=== PATIENT | female | born 1960 | race Caucasian/White ===

== ENCOUNTER 2016-04-17 11:33 | Day surgery (SDC) | payer BC ==
[2016-04-02 08:42] VITALS: BMI 53.7
[~2016-04-17 11:33] MED LIST: LACTATED RINGERS 1,000 ML IV SCH
[2016-04-17 11:56] VITALS: RESP 16; TEMP 97.3
[2016-04-17] MEDS ORDERED: LIDOCAINE 1% 20 ML VIAL (10MG/ML) FOR IV START INTRADERMA ONE (11:57)
[2016-04-17] MEDS ORDERED: PROPOFOL 10 MG/ML 20 ML VIAL IV ONE (12:05)
--- NOTE | 2016-04-17 12:10 | P.GSHP ---
History of Present Illness H&P Date: 04/17/16 Chief Complaint: colon cancer screening Patient today for screening colonoscopy. No bowel related complaints other than hemorrhoids. Denies constipation or diarrhea. Past Medical History Past Medical History: Hyperlipidemia, Hypertension, Osteoarthritis (OA) Additional Past Medical History / Comment(s): NEUROPATHY , MORBID OBESITY, HEMORRHOID, History of Any Multi-Drug Resistant Organisms: None Reported Past Surgical History: Cholecystectomy, Hernia Repair, Hysterectomy, Orthopedic Surgery, Tonsillectomy Additional Past Surgical History / Comment(s): Left ankle tendon repair 1979. D& C 1988. Hyst 1995. LT SHOULDER SX, BILAT OVAIRIAN CYSTECTOMY, HERNIA X 2, CORTISONE SHOT 02/12/16 Past Anesthesia/Blood Transfusion Reactions: Previous Problems w/ Anesthesia, Postoperative Nausea & Vomiting (PONV) Additional Past Anesthesia/Blood Transfusion Reaction / Comment(s): Postoperative nausea and vomiting Past Psychological History: No Psychological Hx Reported Smoking Status: Former smoker Past Alcohol Use History: None Reported Additional Past Alcohol Use History / Comment(s): STARTED SMOKING AT AGE 15 QUIT MAR 2016 SMOKED 1 PACK PER WEEK Past Drug Use History: None Reported - Past Family History Mother Family Medical History: AFIB, Cancer, Deep Vein Thrombosis (DVT) Additional Family Medical History / Comment(s): States uterine cancer. Father History Unknown: Yes Medications and Allergies Home Medications Medication Instructions Recorded Confirmed Type Atorvastatin [Lipitor] 10 mg PO HS 04/02/16 04/17/16 History Lisinopril-Hctz 20-25 mg 1 each PO DAILY 04/02/16 04/17/16 History [Zestoretic 20-25] Stool Softener 1 each PO Q2D 04/02/16 04/17/16 History Ubidecarenone [Co Q-10] 200 mg PO HS 04/02/16 04/17/16 History traMADol HCL [Ultram] 50 mg PO Q6HR PRN 04/02/16 04/17/16 History Allergies Allergy/AdvReac Type Severity Reaction Status Date / Time No Known Allergies Allergy Verified 04/15/16 09:46 Surgical - Exam Vital Signs Temp Pulse Resp BP Pulse Ox 97.3 F L 91 16 133/70 95 04/17/16 11:55 04/17/16 11:55 04/17/16 11:55 04/17/16 11:55 04/17/16 11:55 Physical exam: General: Well-developed, well-nourished HEENT: Normocephalic, sclerae nonicteric Abdomen: Nontender, nondistended Extremities: No edema Neuro: Alert and oriented Assessment and Plan (1) Colon cancer screening Narrative/Plan: Proceed with colonoscopy Status: Acute
--- NOTE | 2016-04-17 12:33 | P.PCN ---
Date of Procedure: 04/17/16 Procedure(s) Performed: PREOPERATIVE DIAGNOSIS: Colon cancer screening POSTOPERATIVE DIAGNOSIS: Proximal transverse colon polyp 3, diverticulosis, hemorrhoids PROCEDURE: Colonoscopy with snare polypectomy ANESTHESIA: MAC SURGEON: Mason Christopher M.D. SPECIMENS: Polyps ENDOSCOPIC PROCEDURE: The patient was placed on the endoscopy table in the left decubitus position. The Olympus colonoscope was inserted into the anus and passed under direct visualization to the base of the cecum. The appendiceal orifice was visualized. From that point the scope was slowly withdrawn inspecting all surfaces carefully. There were no neoplastic inflammatory or polypoid lesions throughout the cecum and ascending colon. In the proximal transverse colon 3 polyps were identified and removed using the snare with cautery technique. The remainder of the transverse descending sigmoid and rectum appeared normal. There was mild diverticulosis seen scattered throughout the colon. Digital rectal examination revealed small hemorrhoids. The patient was taken to the recovery room in stable condition per anesthesia guidelines. RECOMMENDATIONS: Await biopsy results. Anticipate follow-up colonoscopy in 2-3 years.
[2016-04-17 13:19] VITALS: BP 126/82; PULSE 71
== END 2016-04-17 13:28 | disposition home or self-care (01) ==
LOC: ORWHC2ENDO 11:33
PROVIDERS: ATTEND Surgery
DX: Z12.11 Encounter for screening for malignant neoplasm of colon (principal); D12.3 Benign neoplasm of transverse colon; K57.30 Diverticulosis of large intestine without perforation or abscess without bleeding; K64.9 Unspecified hemorrhoids; E78.5 Hyperlipidemia, unspecified; I10 Essential (primary) hypertension; M19.90 Unspecified osteoarthritis, unspecified site; E66.01 Morbid (severe) obesity due to excess calories; Z87.891 Personal history of nicotine dependence; Z79.899 Other long term (current) drug therapy
CPT/HCPCS: 88305; 45385; J2704

== ENCOUNTER → 2017-04-27 | Outpatient (CLI) | payer BC ==
--- NOTE | 2017-04-28 10:01 | MM ---
Reason for exam: screening (asymptomatic). Last mammogram was performed 1 year and 4 months ago. History: Patient is postmenopausal. Took estrogen for 6 months. Physical Findings: A clinical breast exam by your physician is recommended on an annual basis and results should be correlated with mammographic findings. MG 3D Screening Mammo W/Cad Bilateral CC and MLO view(s) were taken. Prior study comparison: December 23, 2015, bilateral MG screening mammo w CAD. December 18, 2014, bilateral MG screening mammo w CAD. There are scattered fibroglandular densities. There is no discrete abnormality. ASSESSMENT: Negative, BI-RAD 1 RECOMMENDATION: Routine screening mammogram of both breasts in 1 year.
== END | disposition home or self-care (01) ==
LOC: RADMAMWWP 10:55
PROVIDERS: ATTEND Family Medicine
DX: Z12.31 Encounter for screening mammogram for malignant neoplasm of breast (principal)
CPT/HCPCS: 77063; 77067

== ENCOUNTER → 2018-07-11 | Outpatient (CLI) | payer BC ==
--- NOTE | 2018-07-12 14:33 | MM ---
Reason for exam: screening (asymptomatic). Last mammogram was performed 1 year and 2 months ago. History: Patient is postmenopausal. Family history of breast cancer in mother at age 85. Took estrogen for 6 months. Physical Findings: A clinical breast exam by your physician is recommended on an annual basis and results should be correlated with mammographic findings. MG 3D Screening Mammo W/Cad Bilateral CC and MLO view(s) were taken. Prior study comparison: April 27, 2017, bilateral MG 3d screening mammo w/cad. December 23, 2015, bilateral MG screening mammo w CAD. The breast tissue is almost entirely fat. No significant changes when compared with prior studies. ASSESSMENT: Negative, BI-RAD 1 RECOMMENDATION: Routine screening mammogram of both breasts in 1 year.
== END | disposition home or self-care (01) ==
LOC: RADMAMWWP 12:19
PROVIDERS: ATTEND Family Medicine
DX: Z12.31 Encounter for screening mammogram for malignant neoplasm of breast (principal)
CPT/HCPCS: 77063; 77067

== ENCOUNTER → 2018-09-21 | Outpatient (CLI) | payer BC ==
--- NOTE | 2018-09-21 13:35 | XR ---
EXAMINATION TYPE: XR hand complete RT DATE OF EXAM: 09/21/2018 COMPARISON: NONE HISTORY: Fifth finger pain. History of crush injury. TECHNIQUE: AP, oblique and lateral views of the right hand were obtained. FINDINGS: Moderate osteoarthritic changes are seen involving the carpometacarpal first joint. Moderat e osteoarthritic changes are also seen at the radial ulnar and radiocarpal joint. There is negative u lnar variance. No acute fracture or dislocation is identified. IMPRESSION: Moderate osteoarthritic changes of the wrist. If symptoms persist, consider MRI of the wrist to asses s for ligamentous pathology.
== END | disposition home or self-care (01) ==
LOC: RADXRMAIN 11:25
PROVIDERS: ATTEND Family Medicine
DX: M19.031 Primary osteoarthritis, right wrist (principal)

== ENCOUNTER → 2019-01-18 | Outpatient (CLI) | payer BC ==
--- NOTE | 2019-01-18 13:03 | XR ---
EXAMINATION TYPE: XR knee complete RT DATE OF EXAM: 01/18/2019 CLINICAL HISTORY: pain TECHNIQUE: Three views of the right knee are obtained. COMPARISON: 05/14/2014 FINDINGS: There is no acute fracture/dislocation. The tri-compartment joint spaces appear severely narrowed at the patellofemoral joint space and moderately narrowed at the medial tibiofemoral joint s pace. The overlying soft tissue appears unremarkable. IMPRESSION: There is no acute fracture or dislocation.ICD 10 NO FRACTURE, INITIAL EVALUATION
== END | disposition home or self-care (01) ==
LOC: RADXRMAIN 12:41
PROVIDERS: ATTEND Nurse Practitioner Women's Health
DX: M25.561 Pain in right knee (principal)

== ENCOUNTER → 2019-02-02 | Outpatient (CLI) | payer BC ==
--- NOTE | 2019-02-02 09:45 | US ---
EXAMINATION TYPE: US thyroid st tissue head/neck DATE OF EXAM: 02/02/2019 COMPARISON: NONE CLINICAL HISTORY: Thyroid mass R22.0. goiter GLAND SIZE: Right Lobe: 5.6 x 2.4 x 2.0 cm Overall Parenchyma: heterogenous Left Lobe: 5.6 x 2.3 x 2.3 cm Overall Parenchyma: heterogeneous Isthmus Thickness: .9 cm NODULES RIGHT: # of nodules measured on right: Sub centimeter superior pole. LEFT: # of nodules measured on left: 0 ISTHMUS: # of nodules measured in the isthmus: 0 Bilateral neck scanned, no evidence of lymphadenopathy. The gland is diffusely heterogeneous. IMPRESSION: Heterogeneous thyroid gland, subcentimeter thyroid nodule, correlate for thyroiditis
== END | disposition home or self-care (01) ==
LOC: RADUSWWP 09:05
PROVIDERS: ATTEND Nurse Practitioner Women's Health
DX: E07.89 Other specified disorders of thyroid (principal); Z88.8 Allergy status to other drugs, medicaments and biological substances
CPT/HCPCS: 76536

== ENCOUNTER → 2019-02-20 | Outpatient (CLI) | payer BC ==
[2019-02-21 00:56] LABS: C Reactive Protein 0.7 mg/dL (0.0-0.8); Uric Acid 5.1 mg/dL (2.9-7.7)
== END | disposition home or self-care (01) ==
LOC: LABWHC1 17:12
PROVIDERS: ATTEND Family Medicine
DX: M25.561 Pain in right knee (principal); M17.11 Unilateral primary osteoarthritis, right knee
CPT/HCPCS: 36415; 84550; 85652; 86140

== ENCOUNTER → 2019-07-21 | Outpatient (CLI) | payer BC ==
[2019-07-21 18:47] LABS: T4, Free (Free Thyroxine) 1.4 ng/dL (0.80-1.80)
== END | disposition home or self-care (01) ==
LOC: LABWHC1 11:43
PROVIDERS: ATTEND Family Medicine
DX: E07.89 Other specified disorders of thyroid (principal)
CPT/HCPCS: 36415; 83519; 84439; 84443; 84481; 86800

== ENCOUNTER 2020-07-25 13:33 | Emergency (ER) | payer BC ==
[2020-07-25 13:39] VITALS: RESP 18; TEMP 98.2
[2020-07-25] MEDS ORDERED: KETOROLAC 15 MG/ML 1 ML VIAL IM STA (15:17)
[2020-07-25] MEDS ORDERED: methylPREDNISolone SOD SUCCI 125 MG/2 ML VIAL IM STA (15:17)
--- NOTE | 2020-07-25 15:24 | ED ---
Back Pain HPI - General Chief Complaint: Back Pain/Injury Stated Complaint: Back pain Source: patient, family, RN notes reviewed Limitations: no limitations - History of Present Illness Initial Comments: 60-year-old obese white female, alert and oriented 4, presents to the emergency room with complaints of left anterior thigh pain that she woke up with this morning at 9 AM. Patient states that when she tried to get up and walk the pain shot from her thigh into her low back and difficulty walking. Patient denies any saddle anesthesia, denies any bowel or bladder incontinence. Patient states has never had a back injury, and is not a smoker. Patient states that she does state at work for 10 hours but does get up and move is not sedentary. Patient denies any back surgeries and no recent injections. Denies any fevers, nausea vomiting or diarrhea. Patient has a surgical history of cholecystectomy, appendectomy, hysterectomy, left knee surgery and left ankle surgery 1979, and hernia repair 2. Patient has a medical history of hypertension, osteoarthritis with neuropathy. Patient states she took 50 mg tramadol at 9:30 this morning with very minimal relief. MD Complaint: back pain -: hour(s) (6) Similar Symptoms Previously: No Place: home Radiation: left leg (Anterior thigh) Severity scale (1-10): 10 Quality: other (Cramping) Consistency: intermittent Improves With: immobilization, other Worsens With: movement, walking - Related Data Home Medications Medication Instructions Recorded Confirmed Atorvastatin [Lipitor] 10 mg PO HS 04/02/16 04/17/16 Lisinopril-Hctz 20-25 mg 1 each PO DAILY 04/02/16 04/17/16 [Zestoretic 20-25] Stool Softener 1 each PO Q2D 04/02/16 04/17/16 Ubidecarenone [Co Q-10] 200 mg PO HS 04/02/16 04/17/16 traMADol HCL [Ultram] 50 mg PO Q6HR PRN 04/02/16 04/17/16 Previous Rx's Medication Instructions Recorded Cyclobenzaprine [Flexeril] 5 mg PO HS PRN 3 Days #3 tab 07/25/20 methylPREDNISolone Dose Pack 4 mg PO DIRECTED #21 package 07/25/20 [Medrol Dose Pack] Allergies Allergy/AdvReac Type Severity Reaction Status Date / Time atorvastatin [From Lipitor] Allergy Unknown Verified 07/25/20 13:40 Review of Systems ROS Statement: Those systems with pertinent positive or pertinent negative responses have been documented in the HPI. ROS Other: All systems not noted in ROS Statement are negative. Past Medical History Past Medical History: Hyperlipidemia, Hypertension, Osteoarthritis (OA) Additional Past Medical History / Comment(s): NEUROPATHY , MORBID OBESITY, HEMORRHOID, History of Any Multi-Drug Resistant Organisms: None Reported Past Surgical History: Cholecystectomy, Hernia Repair, Hysterectomy, Orthopedic Surgery, Tonsillectomy Additional Past Surgical History / Comment(s): Left ankle tendon repair 1979. D&C 1988. Hyst 1995. LT SHOULDER SX, BILAT OVAIRIAN CYSTECTOMY, HERNIA X 2, CORTISONE SHOT 02/12/16 Past Anesthesia/Blood Transfusion Reactions: Previous Problems w/ Anesthesia, Postoperative Nausea & Vomiting (PONV) Additional Past Anesthesia/Blood Transfusion Reaction / Comment(s): Postoperative nausea and vomiting Past Psychological History: No Psychological Hx Reported Past Alcohol Use History: None Reported Past Drug Use History: None Reported - Past Family History Mother Family Medical History: AFIB, Cancer, Deep Vein Thrombosis (DVT) Additional Family Medical History / Comment(s): States uterine cancer. Father History Unknown: Yes General Exam Limitations: no limitations General appearance: alert, obese Head exam: Present: atraumatic, normocephalic, normal inspection Eye exam: Present: normal appearance, PERRL, EOMI. Absent: scleral icterus, conjunctival injection, periorbital swelling ENT exam: Present: normal exam, normal oropharynx, mucous membranes moist Neck exam: Present: normal inspection, full ROM. Absent: tenderness, meningismus, lymphadenopathy, thyromegaly Respiratory exam: Present: normal lung sounds bilaterally. Absent: respiratory distress, wheezes, rales, rhonchi, stridor, chest wall tenderness, accessory muscle use, decreased breath sounds Cardiovascular Exam: Present: regular rate, normal rhythm, normal heart sounds. Absent: systolic murmur, diastolic murmur, rubs, gallop, clicks GI/Abdominal exam: Present: soft, normal bowel sounds. Absent: distended, tenderness, guarding, rebound, rigid, mass, hernia Extremities exam: Present: normal inspection, full ROM, normal capillary refill. Absent: tenderness, pedal edema, joint swelling, calf tenderness Back exam: Present: normal inspection, tenderness, paraspinal tenderness. Absent: CVA tenderness (R), CVA tenderness (L), muscle spasm, vertebral tenderness, rash noted Expanded Back exam: Absent: saddle anesthesia Back exam: Sciatic Notch Tenderness: Left, Right, Positive Straight Leg Raise: Left Neurological exam: Present: alert, oriented X3, CN II-XII intact, other (Shuffling gait related to back pain) Expanded Neurological exam: Absent: inattentive, memory loss-remote event, memory loss- recent event, receptive aphasia, expressive aphasia, total aphasia, tremor Patient oriented to: Present: person, place, time Speech: Present: fluid speech Cranial nerves: EOM's Intact: Normal, Gag Reflex: Normal, Tongue Deviation: Normal, Facial Sensation: Normal, Facial Palsy with Forehead Movement: Normal, Facial Palsy without Forehead Movement: Normal Motor strength exam: RUE: 5, LUE: 5, RLE: 5, LLE: 5 Eye Response: (4) open spontaneously Motor Response: (6) obeys commands Verbal Response: (5) oriented Cassidy Total: 15 Psychiatric exam: Present: normal affect, normal mood Skin exam: Present: warm, dry, intact, normal color. Absent: rash Course Vital Signs 07/25/20 13:36 Temperature 98.2 F Pulse Rate 84 Respiratory 18 Rate Blood Pressure 135/82 O2 Sat by Pulse 98 Oximetry Medical Decision Making - Medical Decision Making Patient presents to the emergency room with complaints of low back pain since this morning. Patient does not have a history of cancer, smoking or recent surgeries. Patient denies any IV drug abuse. Patient does not have a fever in the emergency room. There is no saddle anesthesia. Patient denies abdominal pain, redness of breath, nausea vomiting diarrhea or dysuria. There are no focal motor deficits. Patient has bilateral equal pedal pulses. Patient does have low back pain with straight leg test on the left, and paraspinal lumbar back tenderness. Pain was relieved with Flexeril, Toradol, Solu-Medrol and morphine here in the emergency room. Patient is able to ambulate around in the room with minimal discomfort and will be discharged home with a Medrol Dosepak, directed to take Tylenol at home and follow up with her primary care doctor in 1 week. case discussed with Dr. Garcia. Disposition Clinical Impression: Lumbar radiculopathy, Lumbar back pain with radiculopathy affecting left lower extremity Disposition: HOME SELF-CARE Condition: Fair Instructions (If sedation given, give patient instructions): Acute Low Back Pain (ED), Lower Back Exercises (ED) Additional Instructions: Take the Medrol dose pack as prescribed, do not take Motrin or Aleve while taking the Medrol Dosepak. Take Tylenol as needed for additional pain relief. Follow-up with the primary care doctor in 1 week. Do not lift anything over 20 pounds. Once pain has resolved start low back exercises. Prescriptions: Cyclobenzaprine [Flexeril] 5 mg PO HS PRN 3 Days #3 tab PRN Reason: muscle spasms methylPREDNISolone Dose Pack [Medrol Dose Pack] 4 mg PO DIRECTED #21 package Is patient prescribed a controlled substance at d/c from ED?: No Referrals: Hakeem Wolfe MD [Primary Care Provider] - 1-2 days Time of Disposition: 18:14
[2020-07-25] MEDS ORDERED: CYCLOBENZAPRINE 10 MG TAB PO STA (16:38)
[2020-07-25] MEDS ORDERED: MORPHINE SULFATE 4 MG/ML SYRINGE IVP STA (16:39)
[2020-07-25] MEDS ORDERED: MORPHINE SULFATE 4 MG/ML SYRINGE IM STA (16:57)
[2020-07-25 18:42] VITALS: BP 126/72; PULSE 65
== END 2020-07-25 18:53 | disposition home or self-care (01) ==
LOC: EC 13:33
DX: M54.16 Radiculopathy, lumbar region (principal); M79.652 Pain in left thigh; I10 Essential (primary) hypertension; E78.5 Hyperlipidemia, unspecified; E66.01 Morbid (severe) obesity due to excess calories; M19.90 Unspecified osteoarthritis, unspecified site; G62.9 Polyneuropathy, unspecified; Z68.41 Body mass index [BMI] 40.0-44.9, adult
CPT/HCPCS: 99283; 96372 ×3; J2270; J2930; J1885

== ENCOUNTER 2020-11-21 16:44 | Emergency (ER) | payer BC ==
[2020-11-21] MEDS ORDERED: SODIUM CHLORIDE 0.9% 1,000 ML IV STA (20:37)
[2020-11-21] MEDS ORDERED: KETOROLAC 15 MG/ML 1 ML VIAL IVP STA (20:37)
[2020-11-21] MEDS ORDERED: ONDANSETRON 4 MG/2 ML VIAL IVP STA (20:37)
--- NOTE | 2020-11-21 20:42 | ED ---
Abdominal Pain HPI - General Chief Complaint: Abdominal Pain Stated Complaint: Rib Pain/JANETT Time Seen by Provider: 11/21/20 19:47 Source: patient, family (Sister), RN notes reviewed, old records reviewed Mode of arrival: ambulatory Limitations: no limitations - History of Present Illness Initial Comments: This is a well-appearing 60-year-old female that presents to the emergency room with epigastric abdominal pain since 3:30 this afternoon. Patient describes the pain as spasms where peaks and then starts to go back down she says it lasts about a minute or 2 and then resolves she states that it happens B 10 minutes. She denies any vomiting but does have nausea. She did have a normal bowel movement today. She denies any fevers or chest pain. Patient does have a history of hypertension, cholecystectomy and hysterectomy with 2 umbilical hernia repairs. MD Complaint: abdominal pain -: hour(s) (5) Location: epigastric Radiation: LUQ, RUQ Severity scale (1-10): 9 Quality: dull, other (spasm) Consistency: intermittent Improves With: nothing Worsens With: nothing Associated Symptoms: denies other symptoms - Related Data Home Medications Medication Instructions Recorded Confirmed Atorvastatin [Lipitor] 10 mg PO HS 04/02/16 04/17/16 Lisinopril-Hctz 20-25 mg 1 each PO DAILY 04/02/16 04/17/16 [Zestoretic 20-25] Stool Softener 1 each PO Q2D 04/02/16 04/17/16 Ubidecarenone [Co Q-10] 200 mg PO HS 04/02/16 04/17/16 traMADol HCL [Ultram] 50 mg PO Q6HR PRN 04/02/16 04/17/16 Previous Rx's Medication Instructions Recorded Cyclobenzaprine [Flexeril] 5 mg PO HS PRN 3 Days #3 tab 07/25/20 methylPREDNISolone Dose Pack 4 mg PO DIRECTED #21 package 07/25/20 [Medrol Dose Pack] Famotidine [Pepcid] 20 mg PO DAILY 28 Days #28 tablet 11/22/20 Allergies Allergy/AdvReac Type Severity Reaction Status Date / Time atorvastatin [From Lipitor] Allergy Unknown Verified 11/21/20 18:29 Review of Systems ROS Statement: Those systems with pertinent positive or pertinent negative responses have been documented in the HPI. ROS Other: All systems not noted in ROS Statement are negative. Past Medical History Past Medical History: Hyperlipidemia, Hypertension, Osteoarthritis (OA) Additional Past Medical History / Comment(s): NEUROPATHY , MORBID OBESITY, HEMORRHOID, History of Any Multi-Drug Resistant Organisms: None Reported Past Surgical History: Cholecystectomy, Hernia Repair, Hysterectomy, Orthopedic Surgery, Tonsillectomy Additional Past Surgical History / Comment(s): Left ankle tendon repair 1979. D&C 1988. Hyst 1995. LT SHOULDER SX, BILAT OVAIRIAN CYSTECTOMY, HERNIA X 2, CORTISONE SHOT 02/12/16 Past Anesthesia/Blood Transfusion Reactions: Previous Problems w/ Anesthesia, Postoperative Nausea & Vomiting (PONV) Additional Past Anesthesia/Blood Transfusion Reaction / Comment(s): Postoperative nausea and vomiting Past Psychological History: No Psychological Hx Reported Smoking Status: Former smoker Past Alcohol Use History: None Reported Past Drug Use History: None Reported - Past Family History Mother Family Medical History: AFIB, Cancer, Deep Vein Thrombosis (DVT) Additional Family Medical History / Comment(s): States uterine cancer. Father History Unknown: Yes General Exam Limitations: no limitations General appearance: alert, in no apparent distress Head exam: Present: atraumatic, normocephalic, normal inspection Eye exam: Present: normal appearance, PERRL, EOMI. Absent: scleral icterus, conjunctival injection, periorbital swelling ENT exam: Present: normal exam, normal oropharynx, mucous membranes moist Neck exam: Present: normal inspection, full ROM. Absent: tenderness, meningismus, lymphadenopathy Respiratory exam: Present: normal lung sounds bilaterally. Absent: respiratory distress, wheezes, rales, rhonchi, stridor Cardiovascular Exam: Present: regular rate, normal rhythm, normal heart sounds. Absent: systolic murmur, diastolic murmur, rubs, gallop, clicks GI/Abdominal exam: Present: soft, tenderness (Epigastric), normal bowel sounds. Absent: distended, guarding, rebound, rigid Extremities exam: Present: normal inspection, full ROM, normal capillary refill, pedal edema (Bilateral lower extremity chronic). Absent: tenderness, joint swelling, calf tenderness Back exam: Present: normal inspection, full ROM. Absent: tenderness Neurological exam: Present: alert, oriented X3 Psychiatric exam: Present: normal affect, normal mood Skin exam: Present: warm, dry, intact, normal color. Absent: rash Course Vital Signs 11/21/20 11/21/20 11/21/20 18:24 20:04 23:50 Temperature 98.0 F Pulse Rate 71 59 L 56 L Respiratory 19 20 20 Rate Blood Pressure 137/83 154/86 119/52 O2 Sat by Pulse 99 99 98 Oximetry Medical Decision Making - Medical Decision Making CBC and electrolytes are within normal limits. UA is negative for infection. CT of the abdomen shows post surgical changes. Pt's pain was relieved with reglan and IV fluids. Abdomen soft and nontender at discharge. Case was discussed with Dr Colin. Pt will be referred to f/u with her PCP and GI doctor. Pt states she has seen Dr Christopher and Dr Hummel in the past and will f/u this week. She is agreeable to this plan of care. Pt also prescribed pepcid daily. - Lab Data Result diagrams: 11/21/20 21:04 11/21/20 21:04 Lab Results 11/21/20 11/21/20 11/21/20 Range/Units 21:04 21:04 21:04 WBC 8.4 (3.8-10.6) k/uL RBC 4.91 (3.80-5.40) m/uL Hgb 14.6 (11.4-16.0) gm/dL Hct 44.5 (34.0-46.0) % MCV 90.8 (80.0-100.0) fL MCH 29.8 (25.0-35.0) pg MCHC 32.9 (31.0-37.0) g/dL RDW 13.1 (11.5-15.5) % Plt Count 206 (150-450) k/uL MPV 8.1 Neutrophils % 61 % Lymphocytes % 29 % Monocytes % 5 % Eosinophils % 2 % Basophils % 1 % Neutrophils # 5.1 (1.3-7.7) k/uL Lymphocytes # 2.4 (1.0-4.8) k/uL Monocytes # 0.4 (0-1.0) k/uL Eosinophils # 0.2 (0-0.7) k/uL Basophils # 0.1 (0-0.2) k/uL PT 10.6 (9.0-12.0) sec INR 1.0 (<1.2) APTT 26.2 (22.0-30.0) sec Sodium (137-145) mmol/L Potassium (3.5-5.1) mmol/L Chloride (98-107) mmol/L Carbon Dioxide (22-30) mmol/L Anion Gap mmol/L BUN (7-17) mg/dL Creatinine (0.52-1.04) mg/dL Est GFR (CKD-EPI)AfAm (>60 ml/min/1.73 sqM) Est GFR (CKD-EPI)NonAf (>60 ml/min/1.73 sqM) Glucose (74-99) mg/dL Plasma Lactic Acid [place] (0.7-2.0) mmol/L Calcium (8.4-10.2) mg/dL Total Bilirubin (0.2-1.3) mg/dL AST (14-36) U/L ALT (4-34) U/L Alkaline Phosphatase (38-126) U/L Troponin I (0.000-0.034) ng/mL Total Protein (6.3-8.2) g/dL Albumin (3.5-5.0) g/dL Amylase (30-110) U/L Lipase (23-300) U/L Urine Color Yellow Urine Appearance Clear (Clear) Urine pH 6.0 (5.0-8.0) Ur Specific [place] 1.028 (1.001-1.035) Urine Protein Trace H (Negative) Urine Glucose (UA) Negative (Negative) Urine Ketones Negative (Negative) Urine Blood Negative (Negative) Urine Nitrite Negative (Negative) Urine Bilirubin Negative (Negative) Urine Urobilinogen 2.0 (<2.0) mg/dL Ur Leukocyte Esterase Negative (Negative) 11/21/20 11/21/20 11/21/20 Range/Units 21:04 21:04 21:04 WBC (3.8-10.6) k/uL RBC (3.80-5.40) m/uL Hgb (11.4-16.0) gm/dL Hct (34.0-46.0) % MCV (80.0-100.0) fL MCH (25.0-35.0) pg MCHC (31.0-37.0) g/dL RDW (11.5-15.5) % Plt Count (150-450) k/uL MPV Neutrophils % % Lymphocytes % % Monocytes % % Eosinophils % % Basophils % % Neutrophils # (1.3-7.7) k/uL Lymphocytes # (1.0-4.8) k/uL Monocytes # (0-1.0) k/uL Eosinophils # (0-0.7) k/uL Basophils # (0-0.2) k/uL PT (9.0-12.0) sec INR (<1.2) APTT (22.0-30.0) sec Sodium 139 (137-145) mmol/L Potassium 3.7 (3.5-5.1) mmol/L Chloride 106 (98-107) mmol/L Carbon Dioxide 26 (22-30) mmol/L Anion Gap 7 mmol/L BUN 12 (7-17) mg/dL Creatinine 0.60 (0.52-1.04) mg/dL Est GFR (CKD-EPI)AfAm >90 (>60 ml/min/1.73 sqM) Est GFR (CKD-EPI)NonAf >90 (>60 ml/min/1.73 sqM) Glucose 93 (74-99) mg/dL Plasma Lactic Acid [place] 0.9 (0.7-2.0) mmol/L Calcium 9.5 (8.4-10.2) mg/dL Total Bilirubin 0.8 (0.2-1.3) mg/dL AST 33 (14-36) U/L ALT 18 (4-34) U/L Alkaline Phosphatase 58 (38-126) U/L Troponin I <0.012 (0.000-0.034) ng/mL Total Protein 6.9 (6.3-8.2) g/dL Albumin 3.8 (3.5-5.0) g/dL Amylase 48 (30-110) U/L Lipase 114 (23-300) U/L Urine Color Urine Appearance (Clear) Urine pH (5.0-8.0) Ur Specific [place] (1.001-1.035) Urine Protein (Negative) Urine Glucose (UA) (Negative) Urine Ketones (Negative) Urine Blood (Negative) Urine Nitrite (Negative) Urine Bilirubin (Negative) Urine Urobilinogen (<2.0) mg/dL Ur Leukocyte Esterase (Negative) - EKG Data EKG shows normal: sinus rhythm Rate: bradycardia (Ventricular rate 50, NV interval of 0.156, QRS 0.86, QTC 0.419) Disposition Clinical Impression: Abdominal pain Disposition: HOME SELF-CARE Condition: Good Instructions (If sedation given, give patient instructions): Abdominal Pain (ED) Additional Instructions: Take Pepcid once a day. Follow-up with the primary care doctor next week. Return to the emergency room with any new or worsening symptoms including increased pain. Prescriptions: Famotidine [Pepcid] 20 mg PO DAILY 28 Days #28 tablet Is patient prescribed a controlled substance at d/c from ED?: No Referrals: Hakeem Wolfe MD [Primary Care Provider] - 1-2 days Time of Disposition: 00:51
[2020-11-21 21:30] LABS: Basophils # (A) 0.1 k/uL (0-0.2); Basophils % (A) 1 %; Eosinophils # (A) 0.2 k/uL (0-0.7); Eosinophils % (A) 2 %; HCT 44.5 % (34.0-46.0); HGB 14.6 gm/dL (11.4-16.0); Lymphocytes # (A) 2.4 k/uL (1.0-4.8); Lymphocytes % (A) 29 %; MCH 29.8 pg (25.0-35.0); MCHC 32.9 g/dL (31.0-37.0); MCV 90.8 fL (80.0-100.0); Mean Platelet Volume 8.1; Monocytes # (A) 0.4 k/uL (0-1.0); Monocytes % (A) 5 %; Neutrophils # (A) 5.1 k/uL (1.3-7.7); Neutrophils % (A) 61 %; Platelet Count 206 k/uL (150-450); RBC 4.91 m/uL (3.80-5.40); RDW 13.1 % (11.5-15.5); WBC 8.4 k/uL (3.8-10.6)
[2020-11-21 21:36] LABS: Appearance,Urine Clear (Clear); Bilirubin,Urine Negative (Negative); Blood,Urine Negative (Negative); Color,Urine Yellow; Glucose,Urine (UA) Negative (Negative); Ketones,Urine Negative (Negative); Leukocyte Esterase,Urine Negative (Negative); Nitrite,Urine Negative (Negative); Protein,Urine Trace (Negative); Specific Gravity,Urine 1.028 (1.001-1.035)
[2020-11-21 21:40] LABS: Partial Thromboplastin Time 26.2 sec (22.0-30.0); Prothrombin Time 10.6 sec (9.0-12.0)
[2020-11-21 21:43] LABS: ALT 18 U/L (4-34); AST 33 U/L (14-36); African American GFR (CKD) >90 (>60 ml/min/1.73 sqM); Albumin 3.8 g/dL (3.5-5.0); Alkaline Phosphatase 58 U/L (38-126); Amylase 48 U/L (30-110); Anion Gap 7 mmol/L; Blood Urea Nitrogen 12 mg/dL (7-17); Calcium 9.5 mg/dL (8.4-10.2); Carbon Dioxide 26 mmol/L (22-30); Chloride 106 mmol/L (98-107); Glucose 93 mg/dL (74-99); Lipase 114 U/L (23-300); Non-African American GFR(CKD) >90 (>60 ml/min/1.73 sqM); Potassium 3.7 mmol/L (3.5-5.1); Sodium 139 mmol/L (137-145); Total Bilirubin 0.8 mg/dL (0.2-1.3); Total Protein 6.9 g/dL (6.3-8.2)
[2020-11-21] MEDS ORDERED: METOCLOPRAMIDE 5 MG/ML 2 ML VIAL IVP STA (23:04)
[2020-11-22 01:13] VITALS: BP 132/84; PULSE 54; RESP 18; TEMP 98.8
--- NOTE | 2020-11-22 09:42 | CT ---
EXAMINATION TYPE: CT abdomen pelvis wo con DATE OF EXAM: 11/21/2020 COMPARISON: 02/08/2015 INDICATION: lower rib pain/ epigastric pain DLP: 1696 mGycm, Automated exposure control for dose reduction was used. CONTRAST: 0 mL of Isovue 300. Study performed without Oral Contrast TECHNIQUE: Axial images were obtained from above the diaphragm to the pubic rami in the axial plane a t 5 mm thick sections. Reconstructed images are reviewed on the computer in the coronal plane. FINDINGS: Limited CT sections are obtained the lung bases. Mild streak opacity is at the left diaphragm near t he major fissure likely related to some streak atelectasis. CT ABDOMEN: In the retrocrural region there are some enlarged nodes. The largest measures 1.3 cm whic h is abnormal. Suspicious lymphadenopathy within the abdomen or pelvis is not identified. Liver: Normal Spleen: Normal Pancreas: Normal Adrenal glands: The adrenal glands are normal. Gallbladder: Surgically absent Kidneys: No masses are evident. No hydronephrosis is present. There is a 2.2 cm cyst measuring 9 Ho unsfield units. No renal stones are identified. Aorta: Vascular calcification is within the aorta. Inferior vena cava: Normal. CT PELVIS: There is increased density and thickening within the anterior abdominal wall. This may be a surgical incision site. This area measures approximately 6.7 x 3.1 cm. Intra-abdominal extension is not identified. There is some close approximation with loops of bowel nearby. There is a small amoun t extending into the subcutaneous tissue. Hemorrhage is favored within the differential. Postsurgical change may be present. Phlegmon and abscess formation are considered less likely. Correlate with the clinical symptoms. Loops of bowel within the abdomen and pelvis are normal. Diverticulosis is present. There is some sub tle inflammatory change adjacent to the distal descending colon. Very mild diverticulitis could be co nsidered. This study is without oral contrast limiting bowel evaluation. Appendix: Not identified. No dilated tubular structure or inflammatory changes are evident. Urinary bladder: Normal. Genitourinary structures: Uterus and ovaries are not identified. Osseous structures: No suspicious lytic or sclerotic lesions. Facet changes are present. Communication: Preliminary results were provided at the time of preliminary interpretation. Updated i mpressions were provided at the time of final interpretation. Initial dictation could not be recovere d and final dictation is provided at this time. IMPRESSIONS: 1. Enlarged retrocrural lymphadenopathy of uncertain etiology. Consider additional workup. 2. Diverticulosis. There may be some mild inflammatory change at the distal descending colon level an d mild diverticulitis should be considered. 3. Irregular hyperdensity within the anterior abdominal wall musculature with some mild extension int o the subcutaneous tissues. Correlate for hemorrhage. Postsurgical change could be considered. Phlegm on and abscess formation is felt to be less likely. 4. Mild streak atelectasis left lung base. 5. Right renal cyst
== END 2020-11-22 01:10 | disposition home or self-care (01) ==
LOC: EC 16:44
DX: R10.13 Epigastric pain (principal); I10 Essential (primary) hypertension; E78.5 Hyperlipidemia, unspecified; M19.90 Unspecified osteoarthritis, unspecified site; F17.200 Nicotine dependence, unspecified, uncomplicated; Z90.49 Acquired absence of other specified parts of digestive tract; Z90.710 Acquired absence of both cervix and uterus
CPT/HCPCS: 99284; 96374; 96375; 96361 ×2; 36415; 93005; 80053; 82150; 83605; 83690; 84484; 85025; 85610; 85730; 81003; 74176; J2405; J1885

== ENCOUNTER → 2021-03-21 | Outpatient (CLI) | payer BC ==
--- NOTE | 2021-03-23 10:04 | CT ---
EXAMINATION TYPE: CT abdomen pelvis wo con DATE OF EXAM: 03/21/2021 COMPARISON: 11/21/2020 INDICATION: left side flank pain DLP: 2199.3 mGycm, Automated exposure control for dose reduction was used. CONTRAST: 0 mL of Isovue 300. Study performed without Oral Contrast TECHNIQUE: Axial images were obtained from above the diaphragm to the pubic rami in the axial plane a t 5 mm thick sections. Reconstructed images are reviewed on the computer in the coronal plane. FINDINGS: Limited CT sections are obtained the lung bases. The lung bases are clear. CT ABDOMEN: There is some enlarged adenopathy within the retrocrural region measuring 1.0 cm. Scatter ed small periaortic lymphadenopathy is present. Liver: Normal Spleen: Normal Pancreas: Normal Adrenal glands: The adrenal glands are normal. Gallbladder: Surgically absent Kidneys: No masses are evident. No hydronephrosis is present. There is a 1.6 cm cyst in the posteri or right kidney measuring 4 Hounsfield units. No renal stones are evident. No hydroureter is evident . However there may be a 0.8 cm nonobstructing calcification in the distal left hemipelvis. This coul d be a phlebolith and was present previously. Aorta: Vascular calcification is within the aorta. Inferior vena cava: Normal. CT PELVIS: Scattered diverticuli are at the descending colon sigmoid colon junction. Mild inflammatory changes a djacent. Correlate for acute diverticulitis. No abscess formation or free air is identified. The stud y is without oral contrast limiting the evaluation. Appendix: Not visualized. No suspicious inflammatory changes are evident. Urinary bladder: Normal. Genitourinary structures: Uterus and ovaries not identified. Osseous structures: No suspicious lytic or sclerotic lesions. Degenerative disc changes are present L 5-S1. Some facet hypertrophy is in the lower lumbar spine. IMPRESSIONS: 1. Findings suggestive for mild acute diverticulitis proximal sigmoid colon left hemipelvis. 2. No suspicious renal or ureteral stones. A [place] level critical message alert has been initiated for Hakeem Wolfe MD via the [email or web address] Critical Results System on 03/23/2021 10:02 AM. This message alert has been sent to Hakeem chambers MD via the preferences provided by the clinician for the receipt of Radiology Critical Findings. Message ID [id number].
== END | disposition home or self-care (01) ==
LOC: RADCTMAIN 18:23
PROVIDERS: ATTEND Family Medicine
DX: K57.30 Diverticulosis of large intestine without perforation or abscess without bleeding (principal)
CPT/HCPCS: 74176

== ENCOUNTER → 2021-05-23 | Outpatient (CLI) | payer BC ==
--- NOTE | 2021-05-26 10:09 | MM ---
Reason for exam: screening (asymptomatic). Last mammogram was performed 2 years and 10 months ago. History: Patient is postmenopausal. Family history of breast cancer in mother at age 85. Took estrogen for 6 months. Physical Findings: A clinical breast exam by your physician is recommended on an annual basis and results should be correlated with mammographic findings. MG 3D Screening Mammo W/Cad Bilateral CC and MLO view(s) were taken. Prior study comparison: July 11, 2018, bilateral MG 3d screening mammo w/cad. April 27, 2017, bilateral MG 3d screening mammo w/cad. There are scattered fibroglandular densities. There is no discrete abnormality. No significant changes when compared with prior studies. ASSESSMENT: Negative, BI-RAD 1 RECOMMENDATION: Routine screening mammogram of both breasts in 1 year.
== END | disposition home or self-care (01) ==
LOC: RADMAMWWP 08:20
PROVIDERS: ATTEND Family Medicine
DX: Z12.31 Encounter for screening mammogram for malignant neoplasm of breast (principal); Z78.0 Asymptomatic menopausal state; Z80.3 Family history of malignant neoplasm of breast
CPT/HCPCS: 77063; 77067

== ENCOUNTER 2021-05-26 12:31 | Day surgery (SDC) | payer BC ==
[2021-05-22 13:47] VITALS: BMI 44.1
[2021-05-26 12:56] VITALS: TEMP 97.8
[2021-05-26] MEDS ORDERED: ONDANSETRON 4 MG/2 ML VIAL ONE (12:56)
--- NOTE | 2021-05-26 13:04 | P.GSHP ---
History of Present Illness H&P Date: 05/26/21 Chief Complaint: diverticulitis this a 61-year-old female who is appears history of diverticulitis. Patient is today for colonoscopy. Past Medical History Past Medical History: Hyperlipidemia, Hypertension, Osteoarthritis (OA) Additional Past Medical History / Comment(s): NEUROPATHY , HEMORRHOID, History of Any Multi-Drug Resistant Organisms: None Reported Past Surgical History: Cholecystectomy, Hernia Repair, Hysterectomy, Orthopedic Surgery, Tonsillectomy Additional Past Surgical History / Comment(s): Left ankle tendon repair 1979. D&C 1988. Hyst 199, BILAT OVAIRIAN CYSTECTOMY, HERNIA X 2, Past Anesthesia/Blood Transfusion Reactions: Previous Problems w/ Anesthesia, Postoperative Nausea & Vomiting (PONV) Additional Past Anesthesia/Blood Transfusion Reaction / Comment(s): Postoperative nausea and vomiting, Smoking Status: Former smoker - Past Family History Mother Family Medical History: AFIB, Cancer, Deep Vein Thrombosis (DVT) Additional Family Medical History / Comment(s): States uterine cancer.BREAT CANCER, GROIN CANCER " Father History Unknown: Yes Medications and Allergies Home Medications Medication Instructions Recorded Confirmed Type Ubidecarenone [Co Q-10] 200 mg PO DAILY 04/02/16 05/26/21 History traMADol HCL [Ultram] 100 mg PO BID 04/02/16 05/26/21 History Acetaminophen Tab [Tylenol] 650 mg PO DAILY 05/22/21 05/26/21 History Ascorbic Acid [Vitamin C] 500 mg PO DAILY 05/22/21 05/26/21 History Cholecalciferol [Vitamin D3 (25 25 mcg PO DAILY 05/22/21 05/26/21 History Mcg = 1000 Iu)] Hydrochlorothiazide 12.5 mg PO Q48H 05/22/21 05/26/21 History [hydroCHLOROthiazide] Phentermine HCl [Adipex-P] 37.5 mg PO DAILY 05/22/21 05/26/21 History Simvastatin [Zocor] 20 mg PO HS 05/22/21 05/26/21 History Zinc 50 mg PO DAILY 05/22/21 05/26/21 History Allergies Allergy/AdvReac Type Severity Reaction Status Date / Time atorvastatin [From Lipitor] Allergy JOINT PAIN Verified 05/26/21 12:48 Surgical - Exam Vital Signs Temp Pulse Resp BP Pulse Ox 97.8 F 77 18 131/64 95 04/18/22 12:55 05/26/21 12:55 05/26/21 12:55 05/26/21 12:55 05/26/21 12:55 - General well developed, well nourished, no distress - Eyes PERRL - ENT normal pinna - Neck no masses - Respiratory normal expansion - Cardiovascular Rhythm: regular - Abdomen Abdomen: soft, non tender Assessment and Plan Assessment: diverticulitis. We'll perform colonoscopy.
[2021-05-26] MEDS ORDERED: ONDANSETRON 4 MG/2 ML VIAL IVP ONE (13:05)
[2021-05-26] MEDS ORDERED: LIDOCAINE 1% INJ 10MG/ML (20 ML MDV) ONE (13:07)
[2021-05-26] MEDS ORDERED: PROPOFOL 10 MG/ML 20 ML VIAL IV ONE (13:07)
--- NOTE | 2021-05-26 13:26 | P.OP ---
Date of Procedure: 05/26/21 Preoperative Diagnosis: diverticulitis Postoperative Diagnosis: diverticulosis Rectal polyp Procedure(s) Performed: colonoscopy Anesthesia: MAC Surgeon: Jamar Bustillo Pathology: other (rectal polyp) Condition: stable Disposition: PACU Description of Procedure: the patient's placed on the endoscopy table in the lateral position. She received IV sedation. Digital rectal exam performed. This revealed no abnormalities. The flexible colonoscope was then placed patient anus and passed through the colon. Patient's severe diverticulosis of the sigmoid colon. The scope was placed into the level of the proximal transverse colon. Due to the significant diverticular changes. The site not to push the scope further due to concern may be injury to the colon in the sigmoid colon from diverticulosis. Scope withdrawn. The descending colon appeared normal. In the; and area was biopsied with inflamed. Scope brought back the rectum and a small polyp was seen. This removed with a cold forcep. Scope was withdrawn for patient.
[2021-05-26 13:50] VITALS: BP 125/78; PULSE 59; RESP 17
== END 2021-05-26 14:24 | disposition home or self-care (01) ==
LOC: ORWHC2ENDO 12:31
PROVIDERS: ATTEND Surgery
DX: K57.90 Diverticulosis of intestine, part unspecified, without perforation or abscess without bleeding (principal); E78.5 Hyperlipidemia, unspecified; I10 Essential (primary) hypertension; Z87.891 Personal history of nicotine dependence; Z90.49 Acquired absence of other specified parts of digestive tract; E66.9 Obesity, unspecified; Z79.899 Other long term (current) drug therapy; Z82.49 Family history of ischemic heart disease and other diseases of the circulatory system; Z80.8 Family history of malignant neoplasm of other organs or systems; Z80.59 Family history of malignant neoplasm of other urinary tract organ
CPT/HCPCS: 45380; 88305; J2405; J2001; J2704

== ENCOUNTER → 2021-08-20 | Outpatient (CLI) | payer BC ==
[2021-08-20 18:27] LABS: Basophils # (A) 0.05 X 10*3/uL (0.00-0.10); Basophils % (A) 0.6 %; Eosinophils # (A) 0.12 X 10*3/uL (0.04-0.35); Eosinophils % (A) 1.4 %; HCT 43.2 % (37.2-46.3); HGB 13.8 g/dL (12.0-15.0); Immature Grans, Automated 0.8 %; Lymphocytes # (A) 2.31 X 10*3/uL (0.90-5.00); Lymphocytes % (A) 27.7 %; MCH 28.9 pg (27.0-32.0); MCHC 31.9 g/dL (32.0-37.0); MCV 90.6 fL (80.0-97.0); Mean Platelet Volume 11.2 fL (9.5-12.2); Monocytes # (A) 0.57 X 10*3/uL (0.20-1.00); Monocytes % (A) 6.8 %; NRBC Per 100 WBC 0 /100 WBCS (0.0-0.0); Neutrophils # (A) 5.23 X 10*3/uL (1.80-7.70); Neutrophils % (A) 62.7 %; Platelet Count 230 X 10*3/uL (140-440); RBC 4.77 X 10*6/uL (4.10-5.20); WBC 8.35 X 10*3/uL (4.50-10.00)
[2021-08-20 18:34] LABS: Anion Gap 9.3 mmol/L (10.00-18.00); Carbon Dioxide 24.7 mmol/L (20.0-27.5); Potassium 4.2 mmol/L (3.5-5.5)
== END | disposition home or self-care (01) ==
LOC: LABPAT 11:24
PROVIDERS: ATTEND Surgery
DX: Z01.818 Encounter for other preprocedural examination (principal); K57.33 Diverticulitis of large intestine without perforation or abscess with bleeding
CPT/HCPCS: 80051; 85025; 93005

== ENCOUNTER 2021-08-27 08:57 | Inpatient (IN) | payer BC ==
[~2021-08-27 08:57] MED LIST changes: +ACETAMINOPHEN TAB 500 MG TAB PO PRN; +HEPARIN SODIUM,PORCINE/PF 5,000 UNIT/0.5 ML SYRINGE SQ PRN; -LACTATED RINGERS 1,000 ML IV SCH; +ceFAZolin 3 GM in SODIUM CHLORIDE 0.9% 100 ML IVPB PRN; +metroNIDAZOLE-NS PMX 500 MG in SALINE 1 100ML.BAG IVPB PRN
[2021-08-27] MEDS ORDERED: LACTATED RINGERS 1,000 ML IV ONE ×3 (09:20→13:58)
[2021-08-27] MEDS ORDERED: ONDANSETRON 4 MG/2 ML VIAL ONE (09:26)
[2021-08-27 10:01] LABS: Glucose,Whole Blood 92 mg/dL (70-110)
[2021-08-27] MEDS ORDERED: MIDAZOLAM 2 MG/2 ML VIAL IVP ONE (10:18)
[2021-08-27] MEDS ORDERED: fentaNYL (PF) 50 MCG/ML 2 ML AMP IVP ONE (10:18)
[2021-08-27] MEDS ORDERED: ONDANSETRON 4 MG/2 ML VIAL IVP ONE (10:35)
[2021-08-27] MEDS ORDERED: DEXAMETHASONE SOD PHOSPHATE 4 MG/ML 1 ML VIAL IVP ONE (10:35)
[2021-08-27] MEDS ORDERED: NALOXONE 0.4 MG/ML 1 ML VIAL IV PRN (10:42)
[2021-08-27] MEDS ORDERED: ONDANSETRON 4 MG/2 ML VIAL IVP PRN (10:42)
--- NOTE | 2021-08-27 10:45 | P.ANPRN ---
Procedure Note - Anesthesia - Epidural/Spinal Epidural Continuous Time Out Performed: Yes Date of Procedure: 08/27/21 Procedure Start Time: 10:17 Procedure Stop Time: 10:25 Location of Patient: PreOp Indication: Requested by Surgeon Sedation Type: Sedate with meaningful contact maintained Preparation: Sterile Dressing Position: Sitting Catheter: Indwelling Needle Guage: 18 Injectate: Test Dose Lidocaine1.5% w/1:200,000 epi Blood Aspirated: No Pain Paresthesia on Injection Noted: No Events: Uneventful and Well Tolerated
--- NOTE | 2021-08-27 11:08 | P.GSHP ---
History of Present Illness H&P Date: 08/27/21 Chief Complaint: Diverticulitis This a 59-year-old female who presents today for low anterior resection. Patient has issues with chronic diverticulitis. Patient with risks of surgery including bleeding, wound infection and possible colostomy. Past Medical History Past Medical History: Hyperlipidemia, Hypertension, Osteoarthritis (OA) Additional Past Medical History / Comment(s): NEUROPATHY LEFT AR, HEMORR HOID,DIVERTICULITIS,COVID INFECT 2020 History of Any Multi-Drug Resistant Organisms: None Reported Past Surgical History: Cholecystectomy, Hernia Repair, Hysterectomy, Orthopedic Surgery, Tonsillectomy Additional Past Surgical History / Comment(s): Left ankle tendon repair 1979. D&C 1988. Hyst 1995. LT SHOULDER SX, BILAT OVAIRIAN CYSTECTOMY, HERNIA X 2 Past Anesthesia/Blood Transfusion Reactions: Previous Problems w/ Anesthesia, Postoperative Nausea & Vomiting (PONV) Additional Past Anesthesia/Blood Transfusion Reaction / Comment(s): Postoperative nausea and vomiting Smoking Status: Former smoker - Past Family History Mother Family Medical History: AFIB, Cancer, Deep Vein Thrombosis (DVT) Additional Family Medical History / Comment(s): States uterine cancer.BREAT CANCER, GROIN CANCER " Father History Unknown: Yes Medications and Allergies Home Medications Medication Instructions Recorded Confirmed Type Ubidecarenone [Co Q-10] 200 mg PO DAILY 04/02/16 08/26/21 History traMADol HCL [Ultram] 100 mg PO BID PRN 04/02/16 08/26/21 History Acetaminophen Tab [Tylenol] 650 mg PO DAILY PRN 05/22/21 08/26/21 History Ascorbic Acid [Vitamin C] 500 mg PO DAILY 05/22/21 08/26/21 History Cholecalciferol [Vitamin D3 (25 25 mcg PO DAILY 05/22/21 08/26/21 History Mcg = 1000 Iu)] Phentermine HCl [Adipex-P] 37.5 mg PO DAILY 05/22/21 08/26/21 History Simvastatin [Zocor] 20 mg PO HS 05/22/21 08/26/21 History Zinc 50 mg PO DAILY 05/22/21 08/26/21 History hydroCHLOROthiazide 12.5 mg PO Q48H 05/22/21 08/26/21 History Allergies Allergy/AdvReac Type Severity Reaction Status Date / Time atorvastatin [From Lipitor] Allergy JOINT PAIN Verified 08/27/21 09:27 Surgical - Exam Vital Signs Temp Pulse Resp BP Pulse Ox 98.7 F 96 20 133/86 98 08/27/21 09:30 08/27/21 09:30 08/27/21 09:30 08/27/21 09:30 08/27/21 09:30 - General well developed, well nourished, no distress - Eyes PERRL - ENT normal pinna - Neck no masses - Respiratory normal expansion - Cardiovascular Rhythm: regular - Abdomen Abdomen: soft, non tender Assessment and Plan Assessment: History of chronic diverticulitis. We'll perform a low anterior resection.
[2021-08-27] MEDS ORDERED: ROCURONIUM 10 MG/ML (5 ML VIAL) IV ONE (11:26)
[2021-08-27] MEDS ORDERED: LIDOCAINE 2% INJ 20 MG/ML (2 ML VIAL) ONE (11:26)
[2021-08-27] MEDS ORDERED: LIDOCAINE 4% LTA KIT (4 ML) TOPICAL ONE (11:26)
[2021-08-27] MEDS ORDERED: MIDAZOLAM 2 MG/2 ML VIAL ONE (11:26)
[2021-08-27] MEDS ORDERED: fentaNYL (PF) 50 MCG/ML 2 ML AMP ONE (11:26)
[2021-08-27] MEDS ORDERED: NEOSTIGMINE 1 MG/ML 10 ML VIAL ONE (11:26)
[2021-08-27] MEDS ORDERED: PHENYLEPHRINE-0.9% NACL SYG 1,000 MCG/10 ML SYRINGE ONE (11:26)
[2021-08-27] MEDS ORDERED: SUCCINYLCHOLINE CHLORIDE 200 MG/10 ML VIAL IV ONE (11:26)
[2021-08-27] MEDS ORDERED: GLYCOPYRROLATE 0.2 MG/ML 2 ML VIAL ONE (11:26)
[2021-08-27] MEDS ORDERED: PROPOFOL 10 MG/ML 20 ML VIAL IV ONE (11:26)
--- NOTE | 2021-08-27 14:09 | P.OP ---
Date of Procedure: 08/27/21 Preoperative Diagnosis: Diverticulitis Postoperative Diagnosis: Diverticulitis Procedure(s) Performed: Exploratory laparotomy Lysis of extensive adhesion Low anterior resection Anesthesia: FILIPPO Surgeon: Jamar Bustillo Estimated Blood Loss (ml): 50 Pathology: other (colon) Condition: stable Disposition: PACU Description of Procedure: The patient's placed on the operative table in the supine position. She received general endotracheal tube anesthesia. Her abdomen was prepped and draped in sterile fashion. She is placed in dorsal 5. Her abdomen was entered through a low midline scar. The skin was incised and using left cautery the subcutaneous tissue divided. The fascia was then opened midline. Patient had a previous mesh. The mesh was divided in the midline. The perineal cavity was then opened and the adhesions were lysed with sharp dissection. Approximately 20 minutes operative time used to lyse adhesions. The sigmoid colon appeared to be quite inflamed. There is evidence of chronic scarring and thickening of the colon. An enterotomy is made in the proximal sigmoid colon and then the anvil for the 25 mm EEA stapler was placed into the colon. The colon was then transected with a GI stapler. And then the anvil was driven through the staple line. Next using the Enseal device the mesentery the bowel was divided. The rectum was then transected with the contour stapler. There was significant adhesions along the rectum from the patient's previous hysterectomy. The specimen was sent to pathology. There is no bleeding seen. This point the casting assistant placed the EEA stapler patient's anus. The spike the stapler was driven through the rectal staple line. And then the anvil was connected stapler. The stapler is then closed and fired. The stapler was then removed. The tissue rings were examined. There appeared to be a partial tissue rings on the proximal colon. A hydroureter placed across the proximal colon and then the rectum was insufflated with air. There was an obvious air leak at the staple line. Several times made to secure the air leak was sutures however this was unable be performed. This point decided to take down the anastomosis. Using the contour stapler the rectum was transected just distal to the anastomosis. And then the proximal colon was opened with sharp dissection. The anvil for a 25 mm EEA stapler placed into the colon. A pursestring was performed using 2-0 Vicryl suture. The pursestring was secured. The new EEA staplers placed patient's anus and passed up to the rectal stump. The staple spike was driven through the staple line. The anvil fit the stable. The stapler is then closed and fired. The sigmoid withdrawn. 2 intact tissue rings were withdrawn. A air instillation test was then performed on the anastomosis. There is no evidence of any leak. The abdomen was then irrigated. No bleeding was seen. The fascia was then closed in looped #1 PDS suture. Skin was closed jordy. Patient top she will was sent to recovery room in stable condition.
[2021-08-27] MEDS ORDERED: METOCLOPRAMIDE 5 MG/ML 2 ML VIAL IVP PRN (14:10)
[2021-08-27] MEDS: ROPIVACAINE 250 MG, HYDROMORPHONE (PF) 5 MG in SODIUM CHLORIDE 0.9% 200 ML EPIDURAL PRN (14:13)
[2021-08-27] MEDS: D5-0.45% NACL WITH KCL 20MEQ/L 1,000 ML IV SCH (16:37)
[2021-08-27] MEDS: HEPARIN SODIUM,PORCINE/PF 5,000 UNIT/0.5 ML SYRINGE SQ SCH (16:38)
[2021-08-27 18:28] LABS: Basophils % (A) 0 %; Eosinophils % (A) 0 %; HCT 42.9 % (34.0-46.0); HGB 13.4 gm/dL (11.4-16.0); Lymphocytes # (A) 0.6 k/uL (1.0-4.8); Lymphocytes % (A) 4 %; MCH 29.4 pg (25.0-35.0); MCHC 31.3 g/dL (31.0-37.0); Mean Platelet Volume 8.2; Monocytes # (A) 0.9 k/uL (0-1.0); Monocytes % (A) 5 %; Neutrophils % (A) 90 %; Platelet Count 192 k/uL (150-450); RBC 4.56 m/uL (3.80-5.40); RDW 13.3 % (11.5-15.5); WBC 16.7 k/uL (3.8-10.6)
[2021-08-27 18:36] LABS: African American GFR (CKD) >90 (>60 ml/min/1.73 sqM); Anion Gap 4 mmol/L; Blood Urea Nitrogen 7 mg/dL (7-17); Calcium 8.6 mg/dL (8.4-10.2); Carbon Dioxide 27 mmol/L (22-30); Chloride 108 mmol/L (98-107); Glucose 140 mg/dL (74-99); Non-African American GFR(CKD) >90 (>60 ml/min/1.73 sqM); Potassium 4.1 mmol/L (3.5-5.1); Sodium 139 mmol/L (137-145)
--- NOTE | 2021-08-27 18:54 | P.CONS ---
History of Present Illness - Reason for Consult Consult date: 08/27/21 Medical management Requesting physician: Jamar Bustillo - Chief Complaint Diverticulitis - History of Present Illness 59 year-old female patient with noted chronic diverticulitis presented for low anterior resection in which she is day of surgery. Patient has past medical history of hyperlipidemia, hypertension, osteoarthritis, hemorrhoids, diverticulitis, Covid in 2019, cholecystectomy, hernia repair, hysterectomy, tonsillectomy, orthopedic surgery for a left ankle tendon repair in 1979. Review of Systems Constitutional: Reports as per HPI, Denies anorexia, Denies chills, Denies chronic headaches, Denies chronic pain, Denies daytime sleepiness, Denies fatigue, Denies fever, Denies lethargy, Denies malaise, Denies night sweats, Denies poor appetite, Denies sweats, Denies weakness, Denies weight gain, Denies weight loss Ears, nose, mouth and throat: Reports as per HPI, Denies ant. neck pain, Denies bleeding gums, Denies dental pain, Denies dysphagia, Denies epistaxis, Denies headache, Denies hoarseness, Denies mouth pain, Denies nasal congestion, Denies nasal discharge, Denies neck fullness/pressure, Denies neck lump, Denies nose pain, Denies odynophagia, Denies post-nasal drip, Denies sinus pain, Denies sinus pressure, Denies swelling in mouth, Denies swelling in throat, Denies sore throat, Denies vertigo, Denies voice changes Cardiovascular: Reports as per HPI, Denies chest pain, Denies claudication, Denies decreased exercise tolerance, Denies dyspnea on exertion, Denies edema, Denies high blood pressure, Denies irregular heart beat, Denies leg edema, De nies lightheadedness, Denies orthopnea, Denies palpitations, Denies paroxysmal nocturnal dyspnea, Denies phlebitis, Denies rapid heart beat, Denies shortness of breath, Denies syncope Respiratory: Reports as per HPI, Denies congestion, Denies cough, Denies cough with sputum, Denies dyspnea, Denies excessive sputum, Denies hemoptysis, Denies home oxygen, Denies pain, Denies pain on inspiration, Denies pleurisy, Denies respiratory infections, Denies sleep apnea, Denies snoring, Denies wheezing Gastrointestinal: Reports abdominal pain, Reports belching, Reports nausea Genitourinary: Reports as per HPI, Denies abnormal vaginal bleeding, Denies decreased libido, Denies difficulty conceiving, Denies difficulty voiding, De nies dysmenorrhea, Denies dyspareunia, Denies dysuria, Denies flank pain, Denies genital sores, Denies hematuria, Denies hot flashes, Denies incomplete emptying, Denies kidney stones, Denies menorrhagia, Denies mixed incontinence, Denies nocturia, Denies pelvic pain, Denies post void dribbling, Denies , Denies prolapse symptoms, Denies stress incontinence, Denies urge incontinence, Denies urgency, Denies urinary frequency, Denies vaginal discharge, Denies vaginal dryness, Denies vaginal itching, Denies vaginal odor Menstruation: Reports as per HPI Musculoskeletal: Reports as per HPI, Denies arm numbness/tingling, Denies atrophy, Denies fractures, Denies frequent falls, Denies gait dysfunction, Denies hot joints, Denies leg numbness/tingling, Denies limitation of motion, Denies loss of height, Denies low back pain, Denies morning stiffness, Denies muscle cramps, Denies muscle weakness, Denies myalgias, Denies neck pain, Denies neck stiffness, Denies prior amputations, Denies redness of joints, Denies shooting arm pain, Denies shooting leg pain Integumentary: Reports as per HPI, Reports wounds (Lower abdominal surgical incision) Neurological: Reports as per HPI, Denies aphasia, Denies ataxia, Denies balance difficulties, Denies burning pain, Denies change in mentation, Denies change in smell/taste, Denies change in speech, Denies confusion, Denies convulsions, Denies double vision, Denies gait dysfunction, Denies head injury, Denies headaches, Denies hearing difficulties, Denies lack of coordination, Denies loss of vision, Denies memory loss, Denies migraines, Denies motor disturbance, Denies numbness, Denies paralysis, Denies paresthesias, Denies seizures, Denies sensory deficit, Denies spasticity, Denies syncope, Denies tic, Denies tingling, Denies transient paralysis, Denies tremors, Denies vertigo, Denies weakness, Denies visual changes Psychiatric: Reports as per HPI, Denies anhedonia, Denies anxiety, Denies anxiety attacks, Denies change in appetite, Denies change in libido, Denies change in sleep habits, Denies confusion, Denies depression, Denies difficulty concentrating, Denies disorientation, Denies hallucinations, Denies hopelessness, Denies hypersomnia, Denies insomnia, Denies irritability, Denies memory loss, Denies mood swings, Denies paranoia, Denies sadness/tearfulness, Denies sleep disturbances, Denies suicidal ideation Endocrine: Reports as per HPI, Denies cold intolerance, Denies deepening of the voice, Denies excessive sweating, Denies excessive thirst, Denies fatigue, Denies flushing, Denies heat intolerance, Denies high blood sugars, Denies increase in ring/shoe/hat size, Denies low blood sugars, Denies nocturia, Denies palpitations, Denies polydipsia, Denies polyphagia, Denies polyuria, Denies proptosis, Denies recent glucocorticoid use, Denies thyroid mass, Denies weight change Hematologic/Lymphatic: Reports as per HPI Allergic/Immunologic: Reports as per HPI Past Medical History Past Medical History: Hyperlipidemia, Hypertension, Osteoarthritis (OA) Additional Past Medical History / Comment(s): NEUROPATHY LEFT AR, HEMORRHOID,DIVERTICULITIS,COVID INFECT 2020 History of Any Multi-Drug Resistant Organisms: None Reported Past Surgical History: Cholecystectomy, Hernia Repair, Hysterectomy, Orthopedic Surgery, Tonsillectomy Additional Past Surgical History / Comment(s): Left ankle tendon repair 1979. D&C 1988. Hyst 1995. LT SHOULDER SX, BILAT OVAIRIAN CYSTECTOMY, HERNIA X 2 Past Anesthesia/Blood Transfusion Reactions: Previous Problems w/ Anesthesia, Postoperative Nausea & Vomiting (PONV) Additional Past Anesthesia/Blood Transfusion Reaction / Comm: Postoperative nausea and vomiting Smoking Status: Former smoker - Past Family History Mother Family Medical History: AFIB, Cancer, Deep Vein Thrombosis (DVT) Additional Family Medical History / Comment(s): States uterine cancer.BREAT CANCER, GROIN CANCER " Father History Unknown: Yes Medications and Allergies Home Medications Medication Instructions Recorded Confirmed Type Ubidecarenone [Co Q-10] 200 mg PO DAILY 04/02/16 08/26/21 History traMADol HCL [Ultram] 100 mg PO BID PRN 04/02/16 08/26/21 History Acetaminophen Tab [Tylenol] 650 mg PO DAILY PRN 05/22/21 08/26/21 History Ascorbic Acid [Vitamin C] 500 mg PO DAILY 05/22/21 08/26/21 History Cholecalciferol [Vitamin D3 (25 25 mcg PO DAILY 05/22/21 08/26/21 History Mcg = 1000 Iu)] Phentermine HCl [Adipex-P] 37.5 mg PO DAILY 05/22/21 08/26/21 History Simvastatin [Zocor] 20 mg PO HS 05/22/21 08/26/21 History Zinc 50 mg PO DAILY 05/22/21 08/26/21 History hydroCHLOROthiazide 12.5 mg PO Q48H 05/22/21 08/26/21 History Allergies Allergy/AdvReac Type Severity Reaction Status Date / Time atorvastatin [From Lipitor] Allergy JOINT PAIN Verified 08/27/21 09:27 Physical Exam Vitals: Vital Signs Temp Pulse Pulse Resp BP Pulse Ox 08/27/21 17:00 97.9 F 58 L 17 96/63 98 08/27/21 16:55 98.2 F 82 17 97/67 97 08/27/21 16:15 100 08/27/21 15:49 97.9 F 67 17 113/74 100 08/27/21 15:15 74 16 120/67 100 08/27/21 15:02 58 L 16 119/65 100 08/27/21 14:45 60 18 120/67 100 08/27/21 14:32 60 18 119/68 100 08/27/21 14:18 69 18 114/60 100 08/27/21 14:01 97.1 F L 65 18 116/64 100 08/27/21 09:30 98.7 F 96 20 133/86 98 Intake and Output 08/27/21 08/27/21 08/27/21 06:59 14:59 22:59 Intake Total 2200 Output Total 200 100 Balance 1999 - Intake: IV 2200 Output: Urine 100 100 Estimated Blood Loss 100 Other: Weight 121.7 kg GENERAL: Oriented 3 ,Well-appearing, well-nourished and in no acute distress. HEAD: Atraumatic, normocephalic. EYES: Pupils equal round and reactive to light, extraocular movements intact, sclera anicteric, conjunctiva are normal. ENT:nares patent, oropharynx clear without exudates. Moist mucous membranes. NECK: Normal range of motion, supple without lymphadenopathy or JVD, no thyromegaly LUNGS: Breath sounds clear to auscultation bilaterally and equal. No wheezes rales or rhonchi. HEART: Regular rate and rhythm without murmurs, rubs or gallops.S1S2 Normal ABDOMEN: Soft, tender to palpation, bowel sounds absent, abdominal binder in place covering surgical incisions, dressings appear to be dry and intact. No masses appreciated. EXTREMITIES: Normal range of motion, no pitting or edema. No clubbing or cyanosis. NEUROLOGICAL: Cranial nerves II through XII grossly intact. Normal speech, normal gait. PSYCH: Normal mood, normal affect, drowsy. SKIN: Warm, Dry, normal turgor, no rashes or lesions noted. Results CBC & Chem 7: 08/27/21 18:13 Labs: Abnormal Lab Results - Last 24 Hours (Table) 08/27/21 Range/Units 18:13 WBC 16.7 H (3.8-10.6) k/uL Neutrophils # 15.0 H (1.3-7.7) k/uL Lymphocytes # 0.6 L (1.0-4.8) k/uL Assessment and Plan (1) Diverticulitis Current Visit: Yes Status: Acute Code(s): K57.92 - DVTRCLI OF INTEST, PART UNSP, W/O PERF OR ABSCESS W/O BLEED SNOMED Code(s): 487697640 (2) Abdominal pain Current Visit: No Status: Acute Code(s): R10.9 - UNSPECIFIED ABDOMINAL PAIN SNOMED Code(s): 07553660 (3) Obesity Current Visit: No Status: Acute Code(s): E66.9 - OBESITY, UNSPECIFIED SNOMED Code(s): 306488888 (4) Tobacco abuse Current Visit: No Status: Acute Code(s): Z72.0 - TOBACCO USE SNOMED Code(s): 525132873 (5) Leukocytosis Current Visit: Yes Status: Acute Code(s): D72.829 - ELEVATED WHITE BLOOD CELL COUNT, UNSPECIFIED SNOMED Code(s): 475402311 Plan: We'll continue with current medication regimen as prescribed Continue with IV hydration Epidural for pain management Zofran for nausea Heparin subcu for DVT prophylaxis Pneumatic stockings for DVT prophylaxis Will initiate home meds after nothing by mouth status is cleared We'll order labs for tomorrow We'll continue to follow closely and reassess again tomorrow Time with Patient: Greater than 30
[2021-08-27] MEDS: ONDANSETRON 4 MG/2 ML VIAL IVP PRN (19:43)
[2021-08-27] MEDS: ALVIMOPAN 12 MG CAPSULE PO SCH (20:25)
[2021-08-27] MEDS: diphenhydrAMINE 50 MG/ML 1 ML VIAL IVP PRN (23:21)
[2021-08-28] MEDS: HEPARIN SODIUM,PORCINE/PF 5,000 UNIT/0.5 ML SYRINGE SQ SCH ×4 (00:11→15:31)
[2021-08-28] MEDS: D5-0.45% NACL WITH KCL 20MEQ/L 1,000 ML IV SCH ×3 (00:12→15:31)
[2021-08-28] MEDS ORDERED: SODIUM CHLORIDE 0.9% 1,000 ML IV ONE ×3 (01:35→08:14)
--- NOTE | 2021-08-28 06:37 | P.PN ---
Progress Note - Text Progress Note Date: 08/28/21 Patient doing well. Pain well controlled. Epidural @ 5 ml/hr. Turned down due to hypotension which was improved with bolus. Epidural site clean and dry. POD#1 s/p LAR - encourage ambulation - continue epidural
[2021-08-28] MEDS: diphenhydrAMINE 50 MG/ML 1 ML VIAL IVP PRN ×2 (07:37→16:11)
[2021-08-28] MEDS: ALVIMOPAN 12 MG CAPSULE PO SCH ×2 (07:37→20:39)
[2021-08-28 08:57] LABS: Basophils # (A) 0.01 X 10*3/uL (0.00-0.10); Basophils % (A) 0.1 %; Eosinophils # (A) 0 X 10*3/uL (0.04-0.35); Eosinophils % (A) 0 %; HCT 38.1 % (37.2-46.3); HGB 11.7 g/dL (12.0-15.0); Immature Grans, Automated 0.4 %; Lymphocytes % (A) 9.9 %; MCH 28.8 pg (27.0-32.0); MCHC 30.7 g/dL (32.0-37.0); MCV 93.8 fL (80.0-97.0); Mean Platelet Volume 11.2 fL (9.5-12.2); Monocytes # (A) 1.06 X 10*3/uL (0.20-1.00); Monocytes % (A) 8.1 %; NRBC Per 100 WBC 0 /100 WBCS (0.0-0.0); Neutrophils # (A) 10.71 X 10*3/uL (1.80-7.70); Neutrophils % (A) 81.5 %; Platelet Count 177 X 10*3/uL (140-440); RBC 4.06 X 10*6/uL (4.10-5.20); RDW 14.3 % (11.5-14.5); WBC 13.13 X 10*3/uL (4.50-10.00)
[2021-08-28] MEDS: PIPERACILLIN-TAZOBACTAM 3.375 GM in SODIUM CHLORIDE 0.9% 100 ML IVPB SCH ×2 (09:11→15:31)
[2021-08-28 09:12] LABS: Albumin 3.2 g/dL (3.8-4.9); Albumin/Globulin Ratio 1.66 (1.60-3.17); Anion Gap 10.1 mmol/L (10.00-18.00); BUN/Creat Ratio 13.22 Ratio (12.00-20.00); Blood Urea Nitrogen 9.2 mg/dL (9.0-27.0); Calcium 8.1 mg/dL (8.7-10.3); Carbon Dioxide 22.2 mmol/L (20.0-27.5); Non-African American GFR(CKD) 93.2 (60.0-200.0); Potassium 4.1 mmol/L (3.5-5.5); Total Bilirubin 0.5 mg/dL (0.30-1.20); Total Protein 5.2 g/dL (6.2-8.2)
--- NOTE | 2021-08-28 15:20 | P.PN ---
Subjective Progress Note Date: 08/28/21 CHIEF COMPLAINT: Diverticulitis HISTORY OF PRESENT ILLNESS: Patient postop day #1 status post exploratory laparotomy, lysis of adhesions and lower anterior resection. Patient has epidural in place. She reports her pain is controlled. Patient was hypotensive this morning and low urine output. She does feel dry and thirsty with some nausea. She had blood oozing from the distal aspect of her incision. She is afebrile. WBC is down from 16.7-13.13 hemoglobin 11.7 platelets 177 sodium 143 potassium 4.1 creatinine 0.7 Patient seen and examined with Dr. linn PHYSICAL EXAM: VITAL SIGNS: Reviewed. GENERAL: Well-developed in no acute distress. HEENT: No sclera icterus. Extraocular movements grossly intact. Moist buccal mucosa. Head is atraumatic, normocephalic. ABDOMEN: Soft. Obese. Nondistended. Incision site distal aspect of the incision with a continuous oozing of blood. No erythema. Minimal tenderness with palpation of the incision. NEUROLOGIC: Alert and oriented. Cranial nerves II through XII grossly intact. ASSESSMENT: 1. Diverticulitis status post exploratory laparotomy, lysis of adhesions and lower anterior resection PLAN: -Keep patient nothing by mouth except ice chips -1 L fluid bolus given for hypotension and low urine output -Continue IV fluids at 125 mL per hour -Compression dressing applied to the abdomen with abdominal binder to help with bleeding from the incision site. Afternoon evaluation shows improvement of bleeding at incision site -Encouraged patient to increase activity level -Encouraged patient to use incentive spirometer -Continue antibiotics -GI prophylaxis Protonix and DVT prophylaxis subcu heparin Physician Research Epidemiologist note has been reviewed by physician. Signing provider agrees with the documented findings, assessment, and plan of care. Objective - Vital Signs Vital signs: Vital Signs Temp 98.3 F 08/28/21 07:17 Pulse 54 L 08/28/21 07:17 Resp 18 08/28/21 07:17 BP 80/52 08/28/21 07:17 Pulse Ox 100 08/28/21 07:17 FiO2 Intake & Output 08/27/21 08/28/21 08/28/21 18:59 06:59 18:59 Intake Total 2200 78.7 Output Total 300 0 Balance 1900 78.7 Weight 121.7 kg Intake: IV 2200 Intake, IV Titration 78.7 Amount Ropivacaine 250 mg 78.7 Hydromorphone (Pf) 5 mg In Sodium Chloride 0.9% 200 ml @ Per Protocol EPIDURAL .Q0M PRN Rx#: [id number] Output: Urine 200 0 Estimated Blood Loss 100 Other: Voiding Method Indwelling Catheter - Labs CBC & Chem 7: 08/28/21 06:13 08/28/21 06:13 Labs: Abnormal Lab Results - Last 24 Hours (Table) 08/27/21 08/27/21 08/28/21 Range/Units 18:13 18:13 06:13 WBC 16.7 H 13.13 H (3.8-10.6) k/uL RBC 4.06 L (4.10-5.20) X 10*6/uL Hgb 11.7 L (12.0-15.0) g/dL MCHC 30.7 L (32.0-37.0) g/dL Immature Gran # 0.05 H (0.00-0.04) X 10*3/uL Neutrophils # 15.0 H 10.71 H (1.3-7.7) k/uL Lymphocytes # 0.6 L (1.0-4.8) k/uL Monocytes # 1.06 H (0.20-1.00) X 10*3/uL Eosinophils # 0 L (0.04-0.35) X 10*3/uL Chloride 108 H (98-107) mmol/L Glucose 140 H (74-99) mg/dL Calcium (8.7-10.3) mg/dL Total Protein (6.2-8.2) g/dL Albumin (3.8-4.9) g/dL 08/28/21 Range/Units 06:13 WBC (3.8-10.6) k/uL RBC (4.10-5.20) X 10*6/uL Hgb (12.0-15.0) g/dL MCHC (32.0-37.0) g/dL Immature Gran # (0.00-0.04) X 10*3/uL Neutrophils # (1.3-7.7) k/uL Lymphocytes # (1.0-4.8) k/uL Monocytes # (0.20-1.00) X 10*3/uL Eosinophils # (0.04-0.35) X 10*3/uL Chloride 110 H (98-107) mmol/L Glucose 123 H (74-99) mg/dL Calcium 8.1 L (8.7-10.3) mg/dL Total Protein 5.2 L (6.2-8.2) g/dL Albumin 3.2 L (3.8-4.9) g/dL
[2021-08-28] MEDS: PANTOPRAZOLE 40 MG/10 ML VIAL IVP SCH (15:31)
--- NOTE | 2021-08-28 15:34 | P.PN ---
Subjective Progress Note Date: 08/28/21 Principal diagnosis: Diverticulitis 08-28-2021 patient is postop day 1 post exploratory laparotomy, lower anterior resection and lysis of adhesions. Patient is currently sitting up in chair inside with no complaints of pain, chest pain, shortness of breath or difficulty breathing at this time. Patient has epidural in place which was decreased due to hypotension earlier this morning. Patient did receive a 1 L bolus of fluid for the hypotension and decreased urinary output. Naidu catheter in place with cloudy yellow urine She is currently nothing by mouth the exception of ice chips at this time. There was blood oozing from distal aspect of her incision which is controlled at this time. Today's lab work reveals improving WBC 13.13, hemoglobin 11.7, hematocrit of 38.1, platelet count 177. Chemistry reveals a sodium 143, potassium 4.1, P1 9.2, creatinine 0.7 and glucose 123. Liver enzymes or normal with an AST is 16 and ALT of 12. Objective - Vital Signs Vital signs: Vital Signs Temp 98.3 F 08/28/21 07:17 Pulse 54 L 08/28/21 07:17 Resp 18 08/28/21 07:17 BP 80/52 08/28/21 07:17 Pulse Ox 100 08/28/21 07:17 FiO2 Intake & Output 08/27/21 08/28/21 08/28/21 18:59 06:59 18:59 Intake Total 2200 78.7 Output Total 300 0 Balance 1900 78.7 Weight 121.7 kg Intake: IV 2200 Intake, IV Titration 78.7 Amount Ropivacaine 250 mg 78.7 Hydromorphone (Pf) 5 mg In Sodium Chloride 0.9% 200 ml @ Per Protocol EPIDURAL .Q0M PRN Rx#: [id number] Output: Urine 200 0 Estimated Blood Loss 100 Other: Voiding Method Indwelling Catheter - Exam GENERAL: Well-appearing, drowsy, well-nourished and in no acute distress. HEAD: Atraumatic, normocephalic. EYES: Pupils equal round and reactive to light, extraocular movements intact, sclera anicteric, conjunctiva are normal. ENT:nares patent, oropharynx clear without exudates. Moist mucous membranes. NECK: Normal range of motion, supple without lymphadenopathy or JVD, no thyromegaly LUNGS: Breath sounds clear to auscultation bilaterally and equal. No wheezes rales or rhonchi. HEART: Regular rate and rhythm without murmurs, rubs or gallops.S1S2 Normal ABDOMEN: Soft, obese, mild tenderness with palpation,. No guarding, no rebound. No masses appreciated. Continue losing from distal site of surgical incision EXTREMITIES: Normal range of motion, no pitting or edema. No clubbing or cyanosis. NEUROLOGICAL: Cranial nerves II through XII grossly intact. Normal speech PSYCH: Normal mood, normal affect. SKIN: Warm, Dry, normal turgor, no rashes or lesions noted. - Labs CBC & Chem 7: 08/28/21 06:13 08/28/21 06:13 Labs: Abnormal Lab Results - Last 24 Hours (Table) 08/27/21 08/27/21 08/28/21 Range/Units 18:13 18:13 06:13 WBC 16.7 H 13.13 H (3.8-10.6) k/uL RBC 4.06 L (4.10-5.20) X 10*6/uL Hgb 11.7 L (12.0-15.0) g/dL MCHC 30.7 L (32.0-37.0) g/dL Immature Gran # 0.05 H (0.00-0.04) X 10*3/uL Neutrophils # 15.0 H 10.71 H (1.3-7.7) k/uL Lymphocytes # 0.6 L (1.0-4.8) k/uL Monocytes # 1.06 H (0.20-1.00) X 10*3/uL Eosinophils # 0 L (0.04-0.35) X 10*3/uL Chloride 108 H (98-107) mmol/L Glucose 140 H (74-99) mg/dL Calcium (8.7-10.3) mg/dL Total Protein (6.2-8.2) g/dL Albumin (3.8-4.9) g/dL 08/28/21 Range/Units 06:13 WBC (3.8-10.6) k/uL RBC (4.10-5.20) X 10*6/uL Hgb (12.0-15.0) g/dL MCHC (32.0-37.0) g/dL Immature Gran # (0.00-0.04) X 10*3/uL Neutrophils # (1.3-7.7) k/uL Lymphocytes # (1.0-4.8) k/uL Monocytes # (0.20-1.00) X 10*3/uL Eosinophils # (0.04-0.35) X 10*3/uL Chloride 110 H (98-107) mmol/L Glucose 123 H (74-99) mg/dL Calcium 8.1 L (8.7-10.3) mg/dL Total Protein 5.2 L (6.2-8.2) g/dL Albumin 3.2 L (3.8-4.9) g/dL Assessment and Plan (1) Diverticulitis Current Visit: Yes Status: Acute Code(s): K57.92 - DVTRCLI OF INTEST, PART UNSP, W/O PERF OR ABSCESS W/O BLEED SNOMED Code(s): 272132038 (2) Abdominal pain Current Visit: No Status: Acute Code(s): R10.9 - UNSPECIFIED ABDOMINAL PAIN SNOMED Code(s): 35979636 (3) Obesity Current Visit: No Status: Acute Code(s): E66.9 - OBESITY, UNSPECIFIED SNOMED Code(s): 041113920 (4) Tobacco abuse Current Visit: No Status: Acute Code(s): Z72.0 - TOBACCO USE SNOMED Code(s): 349063027 (5) Leukocytosis Current Visit: Yes Status: Acute Code(s): D72.829 - ELEVATED WHITE BLOOD CELL COUNT, UNSPECIFIED SNOMED Code(s): 154832621 Plan: We'll continue with current medication regimen as prescribed IV antibiotics, Zosyn PPI prophylaxis with Protonix Continue with IV fluids for rehydration Epidural for pain management Zofran for nausea Heparin subcu for DVT prophylaxis Pneumatic stockings for DVT prophylaxis Will initiate home meds after nothing by mouth status is cleared We'll order labs for tomorrow We'll continue to follow closely and reassess again tomorrow Time with Patient: Greater than 30
[2021-08-28] MEDS: ROPIVACAINE 250 MG, HYDROMORPHONE (PF) 5 MG in SODIUM CHLORIDE 0.9% 200 ML EPIDURAL PRN (15:59)
[2021-08-29] MEDS: PIPERACILLIN-TAZOBACTAM 3.375 GM in SODIUM CHLORIDE 0.9% 100 ML IVPB SCH ×3 (00:13→15:56)
[2021-08-29] MEDS: diphenhydrAMINE 50 MG/ML 1 ML VIAL IVP PRN ×2 (00:16→18:01)
[2021-08-29] MEDS: HEPARIN SODIUM,PORCINE/PF 5,000 UNIT/0.5 ML SYRINGE SQ SCH ×3 (00:20→15:56)
[2021-08-29] MEDS: D5-0.45% NACL WITH KCL 20MEQ/L 1,000 ML IV SCH ×4 (01:03→23:06)
[2021-08-29] MEDS: HYDROmorphone 0.5 MG/0.5 ML SYRINGE IVP PRN ×3 (08:33→18:01)
[2021-08-29] MEDS: PANTOPRAZOLE 40 MG/10 ML VIAL IVP SCH (08:36)
[2021-08-29] MEDS: ALVIMOPAN 12 MG CAPSULE PO SCH ×2 (08:37→22:07)
--- NOTE | 2021-08-29 09:41 | P.PN ---
Progress Note - Text Progress Note Date: 08/29/21 Postoperative day #2 status post low anterior resection ,epidural catheter placed for postoperative analgesia, patient doing well epidural site okay, patient currently on combination of epidural infusion solution of Ropivacaine 0.0625% and Dilaudid 20 g per mL the infusion rate at 6 ml per hour , patient had no motor deficit epidural site okay , patient had episode of pain started yesterday at night, the pain improved with the 0.5 Dilaudid IV every 1 hours, when necessary for breakthrough pain Assessment and plan= post operative day #2 patient doing well , there is no anesthesia related complications
[2021-08-29 10:49] LABS: Basophils # (A) 0.02 X 10*3/uL (0.00-0.10); Basophils % (A) 0.2 %; Eosinophils # (A) 0.05 X 10*3/uL (0.04-0.35); Eosinophils % (A) 0.6 %; HCT 33.7 % (37.2-46.3); HGB 10.8 g/dL (12.0-15.0); Immature Grans, Automated 0.4 %; Lymphocytes # (A) 2.22 X 10*3/uL (0.90-5.00); MCH 29.6 pg (27.0-32.0); MCV 92.3 fL (80.0-97.0); Mean Platelet Volume 11.1 fL (9.5-12.2); Monocytes # (A) 0.74 X 10*3/uL (0.20-1.00); NRBC Per 100 WBC 0 /100 WBCS (0.0-0.0); Neutrophils # (A) 5.17 X 10*3/uL (1.80-7.70); Neutrophils % (A) 62.8 %; Platelet Count 143 X 10*3/uL (140-440); RBC 3.65 X 10*6/uL (4.10-5.20); RDW 14.5 % (11.5-14.5); WBC 8.23 X 10*3/uL (4.50-10.00)
[2021-08-29 12:58] LABS: Anion Gap 8.4 mmol/L (10.00-18.00); BUN/Creat Ratio 9.03 Ratio (12.00-20.00); Blood Urea Nitrogen 6.4 mg/dL (9.0-27.0); Calcium 8.2 mg/dL (8.7-10.3); Carbon Dioxide 21.2 mmol/L (20.0-27.5); Non-African American GFR(CKD) 91.4 (60.0-200.0); Potassium 4.1 mmol/L (3.5-5.5)
--- NOTE | 2021-08-29 14:31 | P.PN ---
Subjective Progress Note Date: 08/29/21 CHIEF COMPLAINT: Diverticulitis HISTORY OF PRESENT ILLNESS: Patient postop day #2 status post exploratory laparotomy, lysis of adhesions and lower anterior resection. Patient has epidural in place. All epidural was decreased by anesthesia due to hypotension. Dilaudid 0.5 every 2 hours was added for pain. Patient did have some serosanguineous drainage from the incision site. She had been complaining of a stabbing pain on the left side of her abdomen after walking. She also had reported that she had felt a pop by her incision after walking. Sutures are in place. Patient reevaluated this afternoon with Dr. linn. Her pain is controlled. She is sitting up at bedside chair. blood pressure has shown improvement. Urine output is adequate. She is afebrile. Vitals stable. WBC has normalized to 8.23 hemoglobin 10.8 platelets 143 sodium 142 potassium 4.1 creatinine 0.7 also note the patient's subcu heparin for this morning was held due to bleeding from the incision. patient seen and examined with Dr. linn PHYSICAL EXAM: VITAL SIGNS: Reviewed. GENERAL: Well-developed in no acute distress. HEENT: No sclera icterus. Extraocular movements grossly intact. Moist buccal mucosa. Head is atraumatic, normocephalic. ABDOMEN: Soft. Obese. Nondistended. Incision site distal aspect of the incision serosanguineous drainage noted. The drainage was all of the area from yesterday. That most distal aspect area has stopped bleeding.no signs of infection. NEUROLOGIC: Alert and oriented. Cranial nerves II through XII grossly intact. ASSESSMENT: 1. Diverticulitis status post exploratory laparotomy, lysis of adhesions and lower anterior resection PLAN: -Keep patient nothing by mouth except ice chips and gum -Continue IV Dilaudid 0.5 every 2 hours as needed -Continue epidural -Continue IV fluids -Reapplied compression dressing to abdomen -Encouraged patient to increase activity level -Encouraged patient to use incentive spirometer -Continue antibiotics -Okay to resume subcu heparin -GI prophylaxis Protonix and DVT prophylaxis subcu heparin Physician Mill Tender note has been reviewed by physician. Signing provider agrees with the documented findings, assessment, and plan of care. Objective - Vital Signs Vital signs: Vital Signs Temp 98.0 F 08/29/21 14:00 Pulse 63 08/29/21 14:00 Resp 17 08/29/21 14:00 BP 123/76 08/29/21 14:00 Pulse Ox 96 08/29/21 14:00 FiO2 Intake & Output 08/28/21 08/29/21 08/29/21 18:59 06:59 18:59 Intake Total 49.25 62.017 Output Total 300 700 Balance -250.75 -637.983 Intake: Intake, IV Titration 49.25 62.017 Amount Ropivacaine 250 mg 49.25 62.017 Hydromorphone (Pf) 5 mg In Sodium Chloride 0.9% 200 ml @ Per Protocol EPIDURAL .Q0M PRN Rx#: [id number] Output: Urine 300 700 Other: Voiding Method Indwelling Catheter Indwelling Catheter Indwelling Catheter - Labs CBC & Chem 7: 08/29/21 07:18 08/29/21 07:18 Labs: Abnormal Lab Results - Last 24 Hours (Table) 08/29/21 08/29/21 Range/Units 07:18 07:18 RBC 3.65 L (4.10-5.20) X 10*6/uL Hgb 10.8 L (12.0-15.0) g/dL Hct 33.7 L (37.2-46.3) % Chloride 112 H (96-109) mmol/L Anion Gap 8.40 L (10.00-18.00) mmol/L BUN 6.4 L (9.0-27.0) mg/dL BUN/Creatinine Ratio 9.03 L (12.00-20.00) Ratio Calcium 8.2 L (8.7-10.3) mg/dL
[2021-08-30] MEDS: diphenhydrAMINE 50 MG/ML 1 ML VIAL IVP PRN (00:14)
[2021-08-30] MEDS: PIPERACILLIN-TAZOBACTAM 3.375 GM in SODIUM CHLORIDE 0.9% 100 ML IVPB SCH ×3 (00:15→16:28)
[2021-08-30] MEDS: HEPARIN SODIUM,PORCINE/PF 5,000 UNIT/0.5 ML SYRINGE SQ SCH ×3 (00:16→16:29)
[2021-08-30] MEDS: HYDROmorphone 0.5 MG/0.5 ML SYRINGE IVP PRN ×3 (03:42→21:50)
[2021-08-30] MEDS: ALVIMOPAN 12 MG CAPSULE PO SCH ×2 (10:12→21:49)
[2021-08-30] MEDS: D5-0.45% NACL WITH KCL 20MEQ/L 1,000 ML IV SCH ×3 (10:13→21:49)
[2021-08-30] MEDS: PANTOPRAZOLE 40 MG/10 ML VIAL IVP SCH (10:14)
--- NOTE | 2021-08-30 10:47 | P.PN ---
Progress Note - Text Progress Note Date: 08/30/21 Patient is resting comfortably in her chair. She denies any significant bowel function. She's had some burping. Her incisional pain is minimal. On exam vital signs appear stable. Abdomen soft obese incision is clean dry intact. Status post sigmoid colectomy with low anterior resection. Patient will start diet once she has some significant bowel function. Patient is encouraged a blade and use her incentive spirometer.
[2021-08-30 11:43] LABS: Basophils # (A) 0.05 X 10*3/uL (0.00-0.10); Basophils % (A) 0.7 %; Eosinophils # (A) 0.17 X 10*3/uL (0.04-0.35); Eosinophils % (A) 2.5 %; HGB 11.3 g/dL (12.0-15.0); Immature Grans, Automated 0.4 %; Lymphocytes # (A) 2.03 X 10*3/uL (0.90-5.00); Lymphocytes % (A) 29.3 %; MCH 29.1 pg (27.0-32.0); MCHC 31.4 g/dL (32.0-37.0); MCV 92.8 fL (80.0-97.0); Mean Platelet Volume 11.7 fL (9.5-12.2); Monocytes # (A) 0.64 X 10*3/uL (0.20-1.00); Monocytes % (A) 9.2 %; NRBC Per 100 WBC 0 /100 WBCS (0.0-0.0); Neutrophils # (A) 4.01 X 10*3/uL (1.80-7.70); Neutrophils % (A) 57.9 %; Platelet Count 160 X 10*3/uL (140-440); RBC 3.88 X 10*6/uL (4.10-5.20); RDW 14.2 % (11.5-14.5); WBC 6.93 X 10*3/uL (4.50-10.00)
--- NOTE | 2021-08-30 13:50 | P.PN ---
Progress Note - Text Date: 08/30/2021 Time: 1343 The patient is status post, low anterior resection, postoperative day number 3 The patient has no complaints of nausea vomiting or headache. The patient does not complain of any lower extremity numbness or weakness. The epidural was discontinued this afternoon per the service. The patient's pain control be taking care of by the service.
[2021-08-30] MEDS: ONDANSETRON 4 MG/2 ML VIAL IVP PRN (22:07)
[2021-08-31] MEDS: HEPARIN SODIUM,PORCINE/PF 5,000 UNIT/0.5 ML SYRINGE SQ SCH ×4 (00:28→23:40)
[2021-08-31] MEDS: PIPERACILLIN-TAZOBACTAM 3.375 GM in SODIUM CHLORIDE 0.9% 100 ML IVPB SCH ×4 (00:40→23:40)
[2021-08-31] MEDS: HYDROmorphone 0.5 MG/0.5 ML SYRINGE IVP PRN ×3 (04:52→21:34)
[2021-08-31] MEDS: D5-0.45% NACL WITH KCL 20MEQ/L 1,000 ML IV SCH ×3 (05:34→23:35)
[2021-08-31] MEDS: PANTOPRAZOLE 40 MG/10 ML VIAL IVP SCH (08:38)
[2021-08-31] MEDS: ALVIMOPAN 12 MG CAPSULE PO SCH ×2 (08:38→21:11)
--- NOTE | 2021-08-31 13:06 | P.PN ---
Progress Note - Text Progress Note Date: 08/31/21 Patient some complaints of nausea. She's had some minimal bowel activity. On exam vital signs are stable. Abdomen soft. Incisions clean dry tach. Status post low anterior resection for diverticulitis. Patient will start diet once her bowel function returns and nausea have resolved.
[2021-08-31] MEDS: ONDANSETRON 4 MG/2 ML VIAL IVP PRN (13:37)
[2021-09-01] MEDS: D5-0.45% NACL WITH KCL 20MEQ/L 1,000 ML IV SCH ×3 (04:03→23:02)
[2021-09-01] MEDS: ALVIMOPAN 12 MG CAPSULE PO SCH (08:03)
[2021-09-01] MEDS: PANTOPRAZOLE 40 MG/10 ML VIAL IVP SCH (08:13)
[2021-09-01] MEDS: HEPARIN SODIUM,PORCINE/PF 5,000 UNIT/0.5 ML SYRINGE SQ SCH ×3 (08:13→23:02)
[2021-09-01] MEDS: PIPERACILLIN-TAZOBACTAM 3.375 GM in SODIUM CHLORIDE 0.9% 100 ML IVPB SCH ×3 (08:13→23:02)
--- NOTE | 2021-09-01 15:47 | P.PN ---
Progress Note - Text Progress Note Date: 09/01/21 Patient feels better. She had a bowel movement and is passing flatus. On exam vital signs are stable. Abdomen soft. Incisions clean and intact. Status post low anterior resection for diverticular is. Patient will have her diet advanced liquids.
[2021-09-01] MEDS: HYDROmorphone 0.5 MG/0.5 ML SYRINGE IVP PRN (23:04)
[2021-09-02] MEDS: D5-0.45% NACL WITH KCL 20MEQ/L 1,000 ML IV SCH ×3 (04:34→23:44)
[2021-09-02] MEDS: PANTOPRAZOLE 40 MG/10 ML VIAL IVP SCH (08:25)
[2021-09-02] MEDS: HEPARIN SODIUM,PORCINE/PF 5,000 UNIT/0.5 ML SYRINGE SQ SCH ×3 (08:25→23:45)
[2021-09-02] MEDS: PIPERACILLIN-TAZOBACTAM 3.375 GM in SODIUM CHLORIDE 0.9% 100 ML IVPB SCH ×3 (08:26→23:44)
[2021-09-02] MEDS: HYDROmorphone 0.5 MG/0.5 ML SYRINGE IVP PRN ×2 (10:59→21:06)
--- NOTE | 2021-09-02 12:34 | P.PN ---
Progress Note - Text Progress Note Date: 09/02/21 Patient is improved. She has minimal colitis of pain. On exam vital signs are stable. Abdomen soft. Incisions clean and intact. Status post low anterior resection. We inspected discharge home tomorrow.
[2021-09-03] MEDS: HEPARIN SODIUM,PORCINE/PF 5,000 UNIT/0.5 ML SYRINGE SQ SCH (07:52)
[2021-09-03] MEDS: D5-0.45% NACL WITH KCL 20MEQ/L 1,000 ML IV SCH ×2 (07:52→10:22)
[2021-09-03] MEDS: PANTOPRAZOLE 40 MG/10 ML VIAL IVP SCH (07:52)
[2021-09-03] MEDS: PIPERACILLIN-TAZOBACTAM 3.375 GM in SODIUM CHLORIDE 0.9% 100 ML IVPB SCH ×2 (07:54→10:21)
[2021-09-03 10:27] VITALS: BMI 43.2
--- NOTE | 2021-09-03 12:08 | P.DS ---
Providers Date of admission: 08/27/21 08:57 Expected date of discharge: 09/03/21 Attending physician: Jamar Bustillo Consults: 08/27/21 14:10 Consult Physician Routine Consulting Provider: Hakeem Wolfe Consult Reason/Comments: Medical management Do you want consulting provider notified?: Yes Primary care physician: Hakeem Wolfe [facility] Course: This is a 61-year-old female who underwent low anterior resection for diverticulitis. Patient's postoperative arrival. Please have the chart for details. Procedures: Low anterior resection Patient Condition at Discharge: Good Plan - Discharge Summary Discharge Rx Participant: Yes New Discharge Prescriptions: New Docusate [Colace] 100 mg PO BID #20 capsule Ibuprofen [Motrin] 600 mg PO Q6HR PRN #40 tab PRN Reason: Pain oxyCODONE HCL [OxyIR] 5 mg PO Q6H PRN 3 Days #10 tab PRN Reason: Pain Acetaminophen Tab [Tylenol] 650 mg PO Q6H #30 tab No Action traMADol HCL [Ultram] 100 mg PO BID PRN PRN Reason: Pain Ubidecarenone [Co Q-10] 200 mg PO DAILY Phentermine HCl [Adipex-P] 37.5 mg PO DAILY Cholecalciferol [Vitamin D3 (25 Mcg = 1000 Iu)] 25 mcg PO DAILY Zinc 50 mg PO DAILY hydroCHLOROthiazide 12.5 mg PO Q48H Simvastatin [Zocor] 20 mg PO HS Ascorbic Acid [Vitamin C] 500 mg PO DAILY Acetaminophen Tab [Tylenol] 650 mg PO DAILY PRN PRN Reason: Pain Discharge Medication List Ubidecarenone [Co Q-10] 200 mg PO DAILY 04/02/16 [History] traMADol HCL [Ultram] 100 mg PO BID PRN 04/02/16 [History] Acetaminophen Tab [Tylenol] 650 mg PO DAILY PRN 05/22/21 [History] Ascorbic Acid [Vitamin C] 500 mg PO DAILY 05/22/21 [History] Cholecalciferol [Vitamin D3 (25 Mcg = 1000 Iu)] 25 mcg PO DAILY 05/22/21 [History] Phentermine HCl [Adipex-P] 37.5 mg PO DAILY 05/22/21 [History] Simvastatin [Zocor] 20 mg PO HS 05/22/21 [History] Zinc 50 mg PO DAILY 05/22/21 [History] hydroCHLOROthiazide 12.5 mg PO Q48H 05/22/21 [History] Acetaminophen Tab [Tylenol] 650 mg PO Q6H #30 tab 09/03/21 [Rx] Docusate [Colace] 100 mg PO BID #20 capsule 09/03/21 [Rx] Ibuprofen [Motrin] 600 mg PO Q6HR PRN #40 tab 09/03/21 [Rx] oxyCODONE HCL [OxyIR] 5 mg PO Q6H PRN 3 Days #10 tab 09/03/21 [Rx] Patient Instructions/Handouts: Laparoscopic Bowel Resection (DC) Activity/Diet/Wound Care/Special Instructions: Stay on full liquid diet until follow up appt with Dr. Bustillo Discharge Disposition: HOME SELF-CARE
[2021-09-03 13:51] VITALS: BP 135/67; PULSE 91; RESP 18; TEMP 98
== END 2021-09-03 14:03 | disposition home or self-care (01) | DRG 330 ==
LOC: 2ORMAIN 08:57 → 4SSUR 14:14
PROVIDERS: ADMIT Surgery; ATTEND Surgery
PROC: 0DNW0ZZ Release Peritoneum, Open Approach (ICD-10-PCS; 2021-08-27)
PROC: 0DJW0ZZ Inspection of Peritoneum, Open Approach (ICD-10-PCS; 2021-08-27)
PROC: 0DTN0ZZ Resection of Sigmoid Colon, Open Approach (ICD-10-PCS; principal; 2021-08-27 10:30)
DX: K57.32 Diverticulitis of large intestine without perforation or abscess without bleeding (principal); Z68.43 Body mass index [BMI] 50.0-59.9, adult; E66.9 Obesity, unspecified; I10 Essential (primary) hypertension; I95.9 Hypotension, unspecified; D72.829 Elevated white blood cell count, unspecified; E78.5 Hyperlipidemia, unspecified; K66.0 Peritoneal adhesions (postprocedural) (postinfection); M19.90 Unspecified osteoarthritis, unspecified site; K64.9 Unspecified hemorrhoids; G62.9 Polyneuropathy, unspecified; Z90.710 Acquired absence of both cervix and uterus; Z86.16 Personal history of COVID-19; Z90.49 Acquired absence of other specified parts of digestive tract; Z98.890 Other specified postprocedural states; Z80.49 Family history of malignant neoplasm of other genital organs; Z82.49 Family history of ischemic heart disease and other diseases of the circulatory system; Z80.3 Family history of malignant neoplasm of breast; Z79.899 Other long term (current) drug therapy; Z88.8 Allergy status to other drugs, medicaments and biological substances; Z87.891 Personal history of nicotine dependence
CPT/HCPCS: 80048; 80053; 85025; 86850; 86900; 86901; 88307; 94760

== ENCOUNTER 2022-01-03 16:43 | Observation (INO) | payer BC ==
[2022-01-03] MEDS ORDERED: SODIUM CHLORIDE 0.9% 1,000 ML IV STA (18:42)
[2022-01-03] MEDS ORDERED: ONDANSETRON 4 MG/2 ML VIAL IVP STA (19:10)
[2022-01-03] MEDS ORDERED: MORPHINE SULFATE 4 MG/ML SYRINGE IVP STA (19:10)
[2022-01-03 19:20] LABS: Basophils % (A) 0 %; Eosinophils # (A) 0.2 k/uL (0-0.7); Eosinophils % (A) 1 %; HCT 43.9 % (34.0-46.0); HGB 14.9 gm/dL (11.4-16.0); Lymphocytes # (A) 1.4 k/uL (1.0-4.8); Lymphocytes % (A) 11 %; MCH 30.4 pg (25.0-35.0); MCHC 33.9 g/dL (31.0-37.0); MCV 89.6 fL (80.0-100.0); Mean Platelet Volume 8.3; Monocytes # (A) 0.5 k/uL (0-1.0); Monocytes % (A) 4 %; Neutrophils % (A) 80 %; Platelet Count 226 k/uL (150-450); RBC 4.89 m/uL (3.80-5.40); RDW 13.1 % (11.5-15.5); WBC 12.4 k/uL (3.8-10.6)
--- NOTE | 2022-01-03 19:25 | ED ---
General Adult HPI - General Chief complaint: Skin/Abscess/Foreign Body Stated complaint: dizzy, female Time Seen by Provider: 01/03/22 18:23 Source: patient, RN notes reviewed Mode of arrival: wheelchair Limitations: no limitations - History of Present Illness Initial comments: 61-year-old female presents to the emergency Department with complaints of dizziness and draining abscess in the right groin. Patient states she woke up on morning feeling a little bit dizzy, and it has persisted, though not worsened. Dizziness is not affected by position change. It is not accompanied by nausea or vomiting. States she is concerned it is related to the infection in her right groin. States she had a significant amount of foul smelling thin brown drainage from the wound overnight saturating her clothing and bedding. Patient is not diabetic and is not taking any SGLT2 inhibitors. States she is chilled but has not had a fever. Reports abdominal surgery in August and has recently returned to work. Denies any other recent illness, chest pain, shortness of breath, difficulty breathing, abdominal pain, nausea, vomiting, diarrhea, or dysuria. - Related Data Home Medications Medication Instructions Recorded Confirmed Ubidecarenone [Co Q-10] 200 mg PO DAILY 04/02/16 01/04/22 traMADol HCL [Ultram] 50 - 100 mg PO Q8H PRN 04/02/16 01/04/22 Ascorbic Acid [Vitamin C] 500 mg PO DAILY 05/22/21 01/04/22 Cholecalciferol [Vitamin D3 (25 25 mcg PO DAILY 05/22/21 01/04/22 Mcg = 1000 Iu)] Simvastatin [Zocor] 20 mg PO HS 05/22/21 01/04/22 Zinc 50 mg PO DAILY 05/22/21 01/04/22 hydroCHLOROthiazide 12.5 mg PO Q48H 05/22/21 01/04/22 Docusate [Colace] 100 mg PO DAILY 01/04/22 01/04/22 Wheat Dextrin [Benefiber] 1 packet PO DAILY 01/04/22 01/04/22 Allergies Allergy/AdvReac Type Severity Reaction Status Date / Time atorvastatin [From Lipitor] AdvReac JOINT PAIN Verified 01/04/22 11:43 Review of Systems ROS Statement: Those systems with pertinent positive or pertinent negative responses have been documented in the HPI. ROS Other: All systems not noted in ROS Statement are negative. Past Medical History Past Medical History: Hyperlipidemia, Hypertension, Osteoarthritis (OA) Additional Past Medical History / Comment(s): NEUROPATHY LEFT AR, HEMORRHOID,DIVERTICULITIS,COVID INFECT 2020 History of Any Multi-Drug Resistant Organisms: None Reported Past Surgical History: Cholecystectomy, Hernia Repair, Hysterectomy, Orthopedic Surgery, Tonsillectomy Additional Past Surgical History / Comment(s): Left ankle tendon repair 1979. D&C 1988. Hyst 1995. LT SHOULDER SX, BILAT OVAIRIAN CYSTECTOMY, HERNIA X 2 Past Anesthesia/Blood Transfusion Reactions: Previous Problems w/ Anesthesia, Postoperative Nausea & Vomiting (PONV) Additional Past Anesthesia/Blood Transfusion Reaction / Comment(s): Pos toperative nausea and vomiting Past Psychological History: No Psychological Hx Reported Smoking Status: Former smoker Past Alcohol Use History: None Reported Past Drug Use History: None Reported - Past Family History Mother Family Medical History: AFIB, Cancer, Deep Vein Thrombosis (DVT) Additional Family Medical History / Comment(s): States uterine cancer.BREAT CANCER, GROIN CANCER " Father History Unknown: Yes General Exam Limitations: no limitations General appearance: alert, in no apparent distress, anxious Eye exam: Present: normal appearance, PERRL, EOMI. Absent: scleral icterus, conjunctival injection ENT exam: Present: mucous membranes moist Respiratory exam: Present: normal lung sounds bilaterally. Absent: respiratory distress, wheezes, rales, rhonchi, stridor Cardiovascular Exam: Present: regular rate, normal rhythm, normal heart sounds. Absent: systolic murmur, diastolic murmur, rubs, gallop, clicks GI/Abdominal exam: Present: soft, normal bowel sounds. Absent: distended, tenderness, guarding, rebound, rigid External exam: Present: erythema (right labia extending to the perineum), other (small erroded open area in the right groin draining thin foul smelling brown discharge. Induration extending to the right labia.) Neurological exam: Present: alert, oriented X3, normal gait Expanded Patient oriented to: Present: person, place, time Speech: Present: fluid speech Cranial nerves: EOM's Intact: Normal, Nystagmus: Normal Cerebellar function: [place]: Normal Motor strength exam: RUE: 5, LUE: 5, RLE: 5, LLE: 5 Eye Response: (4) open spontaneously Motor Response: (6) obeys commands Verbal Response: (5) oriented [place] Total: 15 Psychiatric exam: Present: anxious Skin exam: Present: warm, dry Course Vital Signs 01/03/22 01/03/22 17:54 23:50 Temperature 98.3 F Pulse Rate 73 80 Respiratory 18 17 Rate Blood Pressure 120/52 130/57 O2 Sat by Pulse 97 98 Oximetry - Reevaluation(s) Reevaluation #1: 01/03/22 22:30 Upon reassessment, patient reports improvement. States dizziness has resolved and groin pain is minimal. I again reiterated desire to admit and patient is agreeable with this plan of care. There has been some difficulty maintaining IV access; vancomycin is currently infusing. 01/03/22 23:[address] Wolfe who agrees to accept this patient for admission. I also spoke with Dr. Vaughn who is agreeable to see this patient tomorrow. Medical Decision Making - Medical Decision Making This is a very pleasant 61-year-old female with a past medical history of hypertension and multiple abdominal surgeries who presents to the emergency department for evaluation of draining abscess in the right groin. Upon exam, patient is anxious, but not ill appearing. She is able to move freely and answers questions appropriately. She does have a complaint of dizziness with no neurological deficits. Patient is not diabetic, nor is she taking any SGLT-2 inhibitors. Laboratory studies were obtained. Patient demonstrates mild leukocytosis with WBC 12.4. ESR 53, CRP 18.3. Glucose 114. Lactic 1.0. CT of the abdomen and pelvis was obtained showing a large area described by the radiologist as inflammatory changes in the medial right upper thigh with soft tissue air and consistent with phlegmon and infection. Patient was started on vancomycin in the emergency department and will be admitted to the hospital for further evaluation and treatment. Patient is agreeable with this plan of care. Attending: Tanya. - Lab Data Result diagrams: 01/04/22 05:34 01/04/22 05:34 Lab Results 01/03/22 01/03/22 01/03/22 Range/Units 18:45 18:45 18:45 WBC 12.4 H (3.8-10.6) k/uL RBC 4.89 (3.80-5.40) m/uL Hgb 14.9 (11.4-16.0) gm/dL Hct 43.9 (34.0-46.0) % MCV 89.6 (80.0-100.0) fL MCH 30.4 (25.0-35.0) pg MCHC 33.9 (31.0-37.0) g/dL RDW 13.1 (11.5-15.5) % Plt Count 226 (150-450) k/uL MPV 8.3 Neutrophils % 80 % Lymphocytes % 11 % Monocytes % 4 % Eosinophils % 1 % Basophils % 0 % Neutrophils # 10.0 H (1.3-7.7) k/uL Lymphocytes # 1.4 (1.0-4.8) k/uL Monocytes # 0.5 (0-1.0) k/uL Eosinophils # 0.2 (0-0.7) k/uL Basophils # 0.0 (0-0.2) k/uL ESR 53 H (0-20) mm/hr PT 11.2 (9.0-12.0) sec INR 1.0 (<1.2) Sodium 140 (137-145) mmol/L Potassium 3.7 (3.5-5.1) mmol/L Chloride 105 (98-107) mmol/L Carbon Dioxide 27 (22-30) mmol/L Anion Gap 8 mmol/L BUN 9 (7-17) mg/dL Creatinine 0.55 (0.52-1.04) mg/dL Est GFR (CKD-EPI)AfAm >90 (>60 ml/min/1.73 sqM) Est GFR (CKD-EPI)NonAf >90 (>60 ml/min/1.73 sqM) Glucose 114 H (74-99) mg/dL Plasma Lactic Acid [place] (0.7-2.0) mmol/L Calcium 8.7 (8.4-10.2) mg/dL Total Bilirubin 0.8 (0.2-1.3) mg/dL AST 39 H (14-36) U/L ALT 26 (4-34) U/L Alkaline Phosphatase 63 (38-126) U/L Troponin I (0.000-0.034) ng/mL C-Reactive Protein 18.3 H (<1.0) mg/dL Total Protein 6.8 (6.3-8.2) g/dL Albumin 3.9 (3.5-5.0) g/dL Urine Color Urine Appearance (Clear) Urine pH (5.0-8.0) Ur Specific [place] (1.001-1.035) Urine Protein (Negative) Urine Glucose (UA) (Negative) Urine Ketones (Negative) Urine Blood (Negative) Urine Nitrite (Negative) Urine Bilirubin (Negative) Urine Urobilinogen (<2.0) mg/dL Ur Leukocyte Esterase (Negative) Urine RBC (0-5) /hpf Urine WBC (0-5) /hpf Ur Squamous Epith Cells (0-4) /hpf Urine Bacteria (None) /hpf Urine Mucus (None) /hpf 01/03/22 01/03/22 01/03/22 Range/Units 18:45 18:45 18:49 WBC (3.8-10.6) k/uL RBC (3.80-5.40) m/uL Hgb (11.4-16.0) gm/dL Hct (34.0-46.0) % MCV (80.0-100.0) fL MCH (25.0-35.0) pg MCHC (31.0-37.0) g/dL RDW (11.5-15.5) % Plt Count (150-450) k/uL MPV Neutrophils % % Lymphocytes % % Monocytes % % Eosinophils % % Basophils % % Neutrophils # (1.3-7.7) k/uL Lymphocytes # (1.0-4.8) k/uL Monocytes # (0-1.0) k/uL Eosinophils # (0-0.7) k/uL Basophils # (0-0.2) k/uL ESR (0-20) mm/hr PT (9.0-12.0) sec INR (<1.2) Sodium (137-145) mmol/L Potassium (3.5-5.1) mmol/L Chloride (98-107) mmol/L Carbon Dioxide (22-30) mmol/L Anion Gap mmol/L BUN (7-17) mg/dL Creatinine (0.52-1.04) mg/dL Est GFR (CKD-EPI)AfAm (>60 ml/min/1.73 sqM) Est GFR (CKD-EPI)NonAf (>60 ml/min/1.73 sqM) Glucose (74-99) mg/dL Plasma Lactic Acid [place] 1.0 (0.7-2.0) mmol/L Calcium (8.4-10.2) mg/dL Total Bilirubin (0.2-1.3) mg/dL AST (14-36) U/L ALT (4-34) U/L Alkaline Phosphatase (38-126) U/L Troponin I <0.012 (0.000-0.034) ng/mL C-Reactive Protein (<1.0) mg/dL Total Protein (6.3-8.2) g/dL Albumin (3.5-5.0) g/dL Urine Color Light Yellow Urine Appearance Clear (Clear) Urine pH 5.5 (5.0-8.0) Ur Specific [place] 1.012 (1.001-1.035) Urine Protein Negative (Negative) Urine Glucose (UA) Negative (Negative) Urine Ketones Negative (Negative) Urine Blood Negative (Negative) Urine Nitrite Negative (Negative) Urine Bilirubin Negative (Negative) Urine Urobilinogen <2.0 (<2.0) mg/dL Ur Leukocyte Esterase Trace H (Negative) Urine RBC <1 (0-5) /hpf Urine WBC 1 (0-5) /hpf Ur Squamous Epith Cells 1 (0-4) /hpf Urine Bacteria Rare H (None) /hpf Urine Mucus Occasional H (None) /hpf - EKG Data EKG shows normal: sinus rhythm Rate: normal EKG Comments: EKG obtained at 1819 shows sinus rhythm with sinus arrhythmia and probable old inferior OK. Ventricular rate 71, MN interval 120, QRS duration 94, QT/QTC 376/398. Interpretation abnormal ECG. - Radiology Data Radiology results: report reviewed, image reviewed CT of the abdomen and pelvis with contrast was obtained. Report was reviewed in its entirety. Impression per Dr. Daigle is inflammatory changes in the medial right upper thigh with soft tissue air and consistent with phlegmon and infection. Mild thickening and fat stranding at the umbilicus consistent with previous surgery which is increased compared to old exam. Sigmoid diverticulosis without definite diverticulitis. There are postsurgical changes at the sigmoid colon consistent with partial resection. Postcholecystectomy mild ectasia with the biliary tree which is increased slightly compared to old exam. Disposition Clinical Impression: Abscess of right groin, Cellulitis of groin, right Disposition: ADMITTED IP TO THIS HOSP Condition: Serious Decision Date: 01/03/22 Decision Time: 23:16
[2022-01-03 19:28] LABS: Appearance,Urine Clear (Clear); Bacteria,Urine Rare /hpf; Bilirubin,Urine Negative (Negative); Blood,Urine Negative (Negative); Color,Urine Light Yellow; Glucose,Urine (UA) Negative (Negative); Ketones,Urine Negative (Negative); Leukocyte Esterase,Urine Trace (Negative); Mucus,Urine Occasional /hpf; Nitrite,Urine Negative (Negative); PH, Urine 5.5 (5.0-8.0); Protein,Urine Negative (Negative); RBC,Urine <1 /hpf (0-5); Specific Gravity,Urine 1.012 (1.001-1.035); Squamous Epithelial Cell,Urine 1 /hpf (0-4); Urobilinogen,Urine <2.0 mg/dL (<2.0); WBC,Urine 1 /hpf (0-5)
[2022-01-03 19:28] LABS: Prothrombin Time 11.2 sec (9.0-12.0)
[2022-01-03 19:34] LABS: ALT 26 U/L (4-34); AST 39 U/L (14-36); African American GFR (CKD) >90 (>60 ml/min/1.73 sqM); Albumin 3.9 g/dL (3.5-5.0); Alkaline Phosphatase 63 U/L (38-126); Anion Gap 8 mmol/L; Blood Urea Nitrogen 9 mg/dL (7-17); Calcium 8.7 mg/dL (8.4-10.2); Carbon Dioxide 27 mmol/L (22-30); Chloride 105 mmol/L (98-107); Glucose 114 mg/dL (74-99); Non-African American GFR(CKD) >90 (>60 ml/min/1.73 sqM); Potassium 3.7 mmol/L (3.5-5.1); Sodium 140 mmol/L (137-145); Total Bilirubin 0.8 mg/dL (0.2-1.3); Total Protein 6.8 g/dL (6.3-8.2)
[2022-01-03 20:09] LABS: C Reactive Protein 18.3 mg/dL (<1.0)
[2022-01-03 20:10] LABS: Erythrocyte Sedimentation Rate 53 mm/hr (0-20)
--- NOTE | 2022-01-03 20:56 | CT ---
EXAMINATION TYPE: CT abdomen pelvis w con DATE OF EXAM: 01/03/2022 COMPARISON: 03/21/2021 HISTORY: Abscess/boil on right side of groin area. CT DLP: 2681.4 mGycm Automated exposure control for dose reduction was used. CONTRAST: Performed with IV Contrast, patient injected with 100cc mL of Isovue 300. Images obtained from the diaphragm to the floor the pelvis with the IV contrast The lung bases are clear of infiltrate. No pleural effusion. Heart size is normal. No pericardial eff usion. There is mild ectasia of the biliary tree. Liver and spleen are intact. Stomach is intact. No pancreatic mass. There are clips from cholecystectomy. There is no adrenal mass. Kidneys show satisfactory contrast opacification. No hydronephrosis. There is 2 cm cortical cyst posterior right kidney. No retroperitoneal adenopathy. There is stranding aroun d the umbilicus consistent with previous surgery. Bladder distends smoothly. No inguinal hernia. There is no mesenteric edema. No ascites or free air. No sign of a bowel obstruction. There are sigmo id diverticula. No diverticulitis. Appendix not seen. The lumbar vertebrae have normal alignment. The re is degenerative disc space narrowing throughout the lumbar spine with spurring and vacuum disc. No compression fracture. The bony pelvis is intact. The hip joints are intact. There is extensive fat stranding subcutaneous fat in the medial right upper thigh extending into the right lateral region. There is soft tissue air. No drainable fluid collection. Area of inflammatory r eaction measures approximately 13 x 4 cm. IMPRESSION: Inflammatory changes in the medial right upper thigh with soft tissue air and consistent with phlegmo n and infection. Mild thickening and fat stranding at the umbilicus and consistent with previous surgery which is incr eased compared to old exam. Sigmoid diverticulosis without definite diverticulitis. There are postsurgical changes at the sigmoid colon consistent with partial resection. Postcholecystectomy mild ectasia of the biliary tree which is increased slightly compared to old exam .
[2022-01-03] MEDS ORDERED: VANCOMYCIN IV PER PHARMACY 1 EACH MISC MISCELLANE PRN (21:28)
[2022-01-03] MEDS ORDERED: VANCOMYCIN 2,000 MG in SODIUM CHLORIDE 0.9% 500 ML 500 ML IVPB ONE (22:00)
[2022-01-03] MEDS ORDERED: NALOXONE 0.4 MG/ML 1 ML VIAL IV PRN (23:16)
[2022-01-03] MEDS ORDERED: HYDROmorphone 0.5 MG/0.5 ML SYRINGE IVP PRN (23:16)
[2022-01-03] MEDS ORDERED: ONDANSETRON 4 MG/2 ML VIAL IVP PRN (23:16)
[2022-01-04] MEDS: SODIUM CHLORIDE 0.9% 1,000 ML IV SCH ×2 (03:07→11:49)
[2022-01-04] MEDS ORDERED: IBUPROFEN 400 MG TAB PO PRN (06:00)
[2022-01-04 06:33] LABS: Basophils % (A) 0 %; Eosinophils # (A) 0.3 k/uL (0-0.7); Eosinophils % (A) 4 %; HCT 37.8 % (34.0-46.0); HGB 12.5 gm/dL (11.4-16.0); Lymphocytes # (A) 1.6 k/uL (1.0-4.8); Lymphocytes % (A) 20 %; MCH 29.9 pg (25.0-35.0); MCHC 33.2 g/dL (31.0-37.0); MCV 90.1 fL (80.0-100.0); Mean Platelet Volume 8.3; Monocytes # (A) 0.4 k/uL (0-1.0); Monocytes % (A) 5 %; Neutrophils # (A) 5.4 k/uL (1.3-7.7); Neutrophils % (A) 67 %; Platelet Count 205 k/uL (150-450); RBC 4.19 m/uL (3.80-5.40); RDW 13.1 % (11.5-15.5); WBC 8.1 k/uL (3.8-10.6)
[2022-01-04 06:40] LABS: ALT 25 U/L (4-34); AST 31 U/L (14-36); African American GFR (CKD) >90 (>60 ml/min/1.73 sqM); Alkaline Phosphatase 50 U/L (38-126); Anion Gap 4 mmol/L; Blood Urea Nitrogen 8 mg/dL (7-17); Calcium 7.9 mg/dL (8.4-10.2); Carbon Dioxide 26 mmol/L (22-30); Chloride 109 mmol/L (98-107); Glucose 89 mg/dL (74-99); Non-African American GFR(CKD) >90 (>60 ml/min/1.73 sqM); Potassium 3.7 mmol/L (3.5-5.1); Sodium 139 mmol/L (137-145); Total Bilirubin 0.7 mg/dL (0.2-1.3); Total Protein 5.5 g/dL (6.3-8.2)
[2022-01-04] MEDS: hydroCHLOROthiazide 12.5 MG CAP PO SCH (07:50)
[2022-01-04] MEDS: ASCORBIC ACID 500 MG TAB PO SCH (07:50)
[2022-01-04] MEDS: DOCUSATE 100 MG CAP PO SCH ×2 (07:50→20:19)
[2022-01-04] MEDS: CHOLECALCIFEROL 25 MCG (1000 IU) TABLET PO SCH (07:50)
[2022-01-04] MEDS: FAMOTIDINE 20 MG TAB PO SCH ×2 (07:51→20:20)
[2022-01-04] MEDS: ACETAMINOPHEN TAB 325 MG TAB PO PRN ×2 (08:05→20:18)
[2022-01-04] MEDS ORDERED: VANCOMYCIN 1,750 MG in SODIUM CHLORIDE 0.9% 500 ML 500 ML IVPB SCH (10:00)
[2022-01-04] MEDS ORDERED: PIPERACILLIN-TAZOBACTAM 3.375 GM in SODIUM CHLORIDE 0.9% 100 ML IVPB SCH (10:00)
--- NOTE | 2022-01-04 10:02 | P.GSCN ---
History of Present Illness Consult date: 01/04/22 Reason for Consult: Right groin abscess History of present illness: 61-year-old female started feeling pain and swelling right groin on Wednesday. Pain and swelling increased and started to spontaneously drain. Patient had a CAT scan showing a phlegmon with abscess in the right upper medial thigh/perineum patient says it feels like it started closer to the lateral aspect of the right labia majora. No history of diabetes. Pain did improve after spontaneously started to drain. Patient has been afebrile without tachycardia. White blood cell count was 12 and is normal at 8 today. No history of similar events. Patient just finished a tray of solid food for breakfast prior to my arrival. Review of Systems The patient denies any acute changes in vision or hearing, no dysphagia or odynophagia, no chest pain or shortness of breath, no dysuria or hematuria, no headache, no runny nose, no rectal bleeding or melena, no unexplained weight loss Past Medical History Past Medical History: Hyperlipidemia, Hypertension, Osteoarthritis (OA) Additional Past Medical History / Comment(s): NEUROPATHY LEFT AR, HEMORRHOID,DIVERTICULITIS,COVID INFECT 2020 History of Any Multi-Drug Resistant Organisms: None Reported Past Surgical History: Cholecystectomy, Hernia Repair, Hysterectomy, Orthopedic Surgery, Tonsillectomy Additional Past Surgical History / Comment(s): Left ankle tendon repair 1979. D&C 1988. Hyst 1995. LT SHOULDER SX, BILAT OVAIRIAN CYSTECTOMY, HERNIA X 2 Past Anesthesia/Blood Transfusion Reactions: Previous Problems w/ Anesthesia, Postoperative Nausea & Vomiting (PONV) Additional Past Anesthesia/Blood Transfusion Reaction / Comm: Postoperative nausea and vomiting Past Psychological History: No Psychological Hx Reported Smoking Status: Former smoker Past Alcohol Use History: None Reported Past Drug Use History: None Reported - Past Family History Mother Family Medical History: AFIB, Cancer, Deep Vein Thrombosis (DVT) Additional Family Medical History / Comment(s): States uterine cancer.BREAT CANCER, GROIN CANCER " Father History Unknown: Yes Medications and Allergies Home Medications Medication Instructions Recorded Confirmed Type Ubidecarenone [Co Q-10] 200 mg PO DAILY 04/02/16 08/26/21 History traMADol HCL [Ultram] 100 mg PO BID PRN 04/02/16 08/26/21 History Acetaminophen Tab [Tylenol] 650 mg PO DAILY PRN 05/22/21 08/26/21 History Ascorbic Acid [Vitamin C] 500 mg PO DAILY 05/22/21 08/26/21 History Cholecalciferol [Vitamin D3 (25 25 mcg PO DAILY 05/22/21 08/26/21 History Mcg = 1000 Iu)] Phentermine HCl [Adipex-P] 37.5 mg PO DAILY 05/22/21 08/26/21 History Simvastatin [Zocor] 20 mg PO HS 05/22/21 08/26/21 History Zinc 50 mg PO DAILY 05/22/21 08/26/21 History hydroCHLOROthiazide 12.5 mg PO Q48H 05/22/21 08/26/21 History Acetaminophen Tab [Tylenol] 650 mg PO Q6H #30 tab 09/03/21 Rx Docusate [Colace] 100 mg PO BID #20 capsule 09/03/21 Rx Ibuprofen [Motrin] 600 mg PO Q6HR PRN #40 tab 09/03/21 Rx oxyCODONE HCL [OxyIR] 5 mg PO Q6H PRN 3 Days #10 tab 09/03/21 Rx Allergies Allergy/AdvReac Type Severity Reaction Status Date / Time atorvastatin [From Lipitor] Allergy JOINT PAIN Verified 01/03/22 17:58 Surgical - Exam Vital Signs Temp Pulse Resp BP Pulse Ox 98.3 F 73 18 120/52 97 01/03/22 17:54 01/03/22 17:54 01/03/22 17:54 01/03/22 17:54 01/03/22 17:54 Physical exam: General: Well-developed, well-nourished HEENT: Normocephalic, sclerae nonicteric Abdomen: Nontender, nondistended Extremities: No edema Neuro: Alert and oriented Right perineal region with tenderness, induration, and erythema, small open wound measuring 6 mm draining seropurulent fluid Results - Labs 01/04/22 05:34 01/04/22 05:34 Abnormal Lab Results - Last 24 Hours (Table) 01/03/22 01/03/22 01/03/22 Range/Units 18:45 18:45 18:49 WBC 12.4 H (3.8-10.6) k/uL Neutrophils # 10.0 H (1.3-7.7) k/uL ESR 53 H (0-20) mm/hr Chloride (98-107) mmol/L Glucose 114 H (74-99) mg/dL Calcium (8.4-10.2) mg/dL AST 39 H (14-36) U/L C-Reactive Protein 18.3 H (<1.0) mg/dL Total Protein (6.3-8.2) g/dL Albumin (3.5-5.0) g/dL Ur Leukocyte Esterase Trace H (Negative) Urine Bacteria Rare H (None) /hpf Urine Mucus Occasional H (None) /hpf 01/04/22 Range/Units 05:34 WBC (3.8-10.6) k/uL Neutrophils # (1.3-7.7) k/uL ESR (0-20) mm/hr Chloride 109 H (98-107) mmol/L Glucose (74-99) mg/dL Calcium 7.9 L (8.4-10.2) mg/dL AST (14-36) U/L C-Reactive Protein (<1.0) mg/dL Total Protein 5.5 L (6.3-8.2) g/dL Albumin 3.0 L (3.5-5.0) g/dL Ur Leukocyte Esterase (Negative) Urine Bacteria (None) /hpf Urine Mucus (None) /hpf Microbiology - Last 24 Hours (Table) 01/03/22 18:45 Gram Stain - Preliminary Groin Wound Culture - Preliminary Diabetes panel 01/03/22 01/04/22 Range/Units 18:45 05:34 Sodium 140 139 (137-145) mmol/L Potassium 3.7 3.7 (3.5-5.1) mmol/L Chloride 105 109 H (98-107) mmol/L Carbon Dioxide 27 26 (22-30) mmol/L BUN 9 8 (7-17) mg/dL Creatinine 0.55 0.59 (0.52-1.04) mg/dL Glucose 114 H 89 (74-99) mg/dL Calcium 8.7 7.9 L (8.4-10.2) mg/dL AST 39 H 31 (14-36) U/L ALT 26 25 (4-34) U/L Alkaline Phosphatase 63 50 (38-126) U/L Total Protein 6.8 5.5 L (6.3-8.2) g/dL Albumin 3.9 3.0 L (3.5-5.0) g/dL Calcium panel 01/03/22 01/04/22 Range/Units 18:45 05:34 Calcium 8.7 7.9 L (8.4-10.2) mg/dL Albumin 3.9 3.0 L (3.5-5.0) g/dL Pituitary panel 01/03/22 01/04/22 Range/Units 18:45 05:34 Sodium 140 139 (137-145) mmol/L Potassium 3.7 3.7 (3.5-5.1) mmol/L Chloride 105 109 H (98-107) mmol/L Carbon Dioxide 27 26 (22-30) mmol/L BUN 9 8 (7-17) mg/dL Creatinine 0.55 0.59 (0.52-1.04) mg/dL Glucose 114 H 89 (74-99) mg/dL Calcium 8.7 7.9 L (8.4-10.2) mg/dL Adrenal panel 01/03/22 01/04/22 Range/Units 18:45 05:34 Sodium 140 139 (137-145) mmol/L Potassium 3.7 3.7 (3.5-5.1) mmol/L Chloride 105 109 H (98-107) mmol/L Carbon Dioxide 27 26 (22-30) mmol/L BUN 9 8 (7-17) mg/dL Creatinine 0.55 0.59 (0.52-1.04) mg/dL Glucose 114 H 89 (74-99) mg/dL Calcium 8.7 7.9 L (8.4-10.2) mg/dL Total Bilirubin 0.8 0.7 (0.2-1.3) mg/dL AST 39 H 31 (14-36) U/L ALT 26 25 (4-34) U/L Alkaline Phosphatase 63 50 (38-126) U/L Total Protein 6.8 5.5 L (6.3-8.2) g/dL Albumin 3.9 3.0 L (3.5-5.0) g/dL Assessment and Plan (1) Abscess of right groin Narrative/Plan: 61-year-old female with abscess right groin/perineum. Recommend incision and drainage. Will proceed with incision and drainage tomorrow. Keep nothing by mouth after midnight. Continue antibiotics for now. Current Visit: Yes Status: Acute Code(s): L02.214 - CUTANEOUS ABSCESS OF GROIN SNOMED Code(s): 08319346
[2022-01-04] MEDS ORDERED: HYDROcodone/APAP 5-325MG 1 EACH TAB PO PRN (11:00)
--- NOTE | 2022-01-04 12:07 | P.HPIM ---
History of Present Illness H&P Date: 01/04/22 Chief Complaint: Right groin abscess 61-year-old female well known to the practice. She is morbidly obese with history of hypertension and hyperlipidemia. She reports on January 01 waking and feeling a painful area along with nausea and vomiting. She indicates increased foul-smelling yellowish brown drainage from the right groin wound. She is not diabetic nor taking SL GTT to medications. In the emergency room it seen and evaluated his severe pain. CT showed significant cellulitis 13 x 4 cm to the area. He is now admitted for IV antibiotics, surgical consultation for incision and drainage and localized wound care. Review of Systems All systems: negative Past Medical History Past Medical History: Hyperlipidemia, Hypertension, Osteoarthritis (OA) Additional Past Medical History / Comment(s): NEUROPATHY LEFT AR, HEMORRHOID,DIVERTICULITIS,COVID INFECT 2020 History of Any Multi-Drug Resistant Organisms: None Reported Past Surgical History: Cholecystectomy, Hernia Repair, Hysterectomy, Orthopedic Surgery, Tonsillectomy Additional Past Surgical History / Comment(s): Left ankle tendon repair 1979. D&C 1988. Hyst 1995. LT SHOULDER SX, BILAT OVAIRIAN CYSTECTOMY, HERNIA X 2 Past Anesthesia/Blood Transfusion Reactions: Previous Problems w/ Anesthesia, Postoperative Nausea & Vomiting (PONV) Additional Past Anesthesia/Blood Transfusion Reaction / Comment(s): Postoperative nausea and vomiting Past Psychological History: No Psychological Hx Reported Smoking Status: Former smoker Past Alcohol Use History: None Reported Past Drug Use History: None Reported - Past Family History Mother Family Medical History: AFIB, Cancer, Deep Vein Thrombosis (DVT) Additional Family Medical History / Comment(s): States uterine cancer.BREAT CANCER, GROIN CANCER " Father History Unknown: Yes Medications and Allergies Home Medications Medication Instructions Recorded Confirmed Type Ubidecarenone [Co Q-10] 200 mg PO DAILY 04/02/16 01/04/22 History traMADol HCL [Ultram] 50 - 100 mg PO Q8H PRN 04/02/16 01/04/22 History Ascorbic Acid [Vitamin C] 500 mg PO DAILY 05/22/21 01/04/22 History Cholecalciferol [Vitamin D3 (25 25 mcg PO DAILY 05/22/21 01/04/22 History Mcg = 1000 Iu)] Simvastatin [Zocor] 20 mg PO HS 05/22/21 01/04/22 History Zinc 50 mg PO DAILY 05/22/21 01/04/22 History hydroCHLOROthiazide 12.5 mg PO Q48H 05/22/21 01/04/22 History Docusate [Colace] 100 mg PO DAILY 01/04/22 01/04/22 History Wheat Dextrin [Benefiber] 1 packet PO DAILY 01/04/22 01/04/22 History Allergies Allergy/AdvReac Type Severity Reaction Status Date / Time atorvastatin [From Lipitor] AdvReac JOINT PAIN Verified 01/04/22 11:43 Physical Exam Vitals: Vital Signs Temp Pulse Pulse Resp BP BP Pulse Ox 01/04/22 08:00 97.9 F 67 16 110/73 96 01/04/22 01:00 79 17 01/04/22 00:36 98.9 F 79 18 112/74 98 01/03/22 23:50 80 17 130/57 98 01/03/22 17:54 98.3 F 73 18 120/52 97 Intake and Output 01/03/22 01/04/22 01/04/22 22:59 06:59 14:59 Other: Voiding Method Toilet Toilet # Voids 1 Weight 121.109 kg 121.109 kg GENERAL: Obese female in minimal distress due to pain HEAD: Atraumatic, normocephalic. EYES: Pupils equal round and reactive to light, extraocular movements intact, sclera anicteric, conjunctiva are normal. ENT:nares patent, oropharynx clear without exudates. Moist mucous membranes. NECK: Normal range of motion, supple without lymphadenopathy or JVD, no thyromegaly LUNGS: Breath sounds clear to auscultation bilaterally and equal. No wheezes rales or rhonchi. HEART: Regular rate and rhythm without murmurs, rubs or gallops.S1S2 Normal ABDOMEN: Soft, nontender, normoactive bowel sounds. No guarding, no rebound. No masses appreciated. EXTREMITIES: Normal range of motion, no pitting or edema. No clubbing or cyanosis. NEUROLOGICAL: Cranial nerves II through XII grossly intact. Normal speech, normal gait. PSYCH: Normal mood, normal affect. SKIN: Warm, Dry, normal turgor, no rashes, to the right groin there is a small pore that when expressed has purulent discharge. It is located at the right groin approximately 45 cm from the labia majora. There is periwound erythema noted. Results CBC & Chem 7: 01/04/22 05:34 01/04/22 05:34 Labs: Abnormal Lab Results - Last 24 Hours (Table) 01/03/22 01/03/22 01/03/22 Range/Units 18:45 18:45 18:49 WBC 12.4 H (3.8-10.6) k/uL Neutrophils # 10.0 H (1.3-7.7) k/uL ESR 53 H (0-20) mm/hr Chloride (98-107) mmol/L Glucose 114 H (74-99) mg/dL Calcium (8.4-10.2) mg/dL AST 39 H (14-36) U/L C-Reactive Protein 18.3 H (<1.0) mg/dL Total Protein (6.3-8.2) g/dL Albumin (3.5-5.0) g/dL Ur Leukocyte Esterase Trace H (Negative) Urine Bacteria Rare H (None) /hpf Urine Mucus Occasional H (None) /hpf 01/04/22 Range/Units 05:34 WBC (3.8-10.6) k/uL Neutrophils # (1.3-7.7) k/uL ESR (0-20) mm/hr Chloride 109 H (98-107) mmol/L Glucose (74-99) mg/dL Calcium 7.9 L (8.4-10.2) mg/dL AST (14-36) U/L C-Reactive Protein (<1.0) mg/dL Total Protein 5.5 L (6.3-8.2) g/dL Albumin 3.0 L (3.5-5.0) g/dL Ur Leukocyte Esterase (Negative) Urine Bacteria (None) /hpf Urine Mucus (None) /hpf Microbiology - Last 24 Hours (Table) 01/03/22 18:45 Gram Stain - Preliminary Groin Wound Culture - Preliminary CT scan - abdomen: report reviewed Thrombosis Risk Factor Assmnt - DVT/VTE Prophylaxis DVT/VTE Prophylaxis: Low risk, early ambulation encouraged - Choose All That Apply Each Risk Factor Represents 2 Points: Age 61-74 years Thrombosis Risk Factor Assessment Total Risk Factor Score: 2 Thrombosis Risk Factor Assessment Level: Low Risk Assessment and Plan (1) Essential (primary) hypertension Current Visit: Yes Status: Acute Code(s): I10 - ESSENTIAL (PRIMARY) H YPERTENSION SNOMED Code(s): 03675567 (2) Hyperlipidemia, unspecified Current Visit: Yes Status: Acute Code(s): E78.5 - HYPERLIPIDEMIA, UNSPECIFIED SNOMED Code(s): 75774238 (3) Intractable pain Current Visit: Yes Status: Acute Code(s): R52 - PAIN, UNSPECIFIED SNOMED Code(s): 57606663 (4) Need for intravenous access Current Visit: Yes Status: Acute Code(s): AZI4332 - SNOMED Code(s): 169625436 (5) Abscess of right groin Current Visit: Yes Status: Acute Code(s): L02.214 - CUTANEOUS ABSCESS OF GROIN SNOMED Code(s): 56075640 (6) Cellulitis of groin, right Current Visit: Yes Status: Acute Code(s): L03.314 - CELLULITIS OF GROIN SNOMED Code(s): 70688664 (7) Leukocytosis Current Visit: No Status: Acute Code(s): D72.829 - ELEVATED WHITE BLOOD CELL COUNT, UNSPECIFIED SNOMED Code(s): 186730234 (8) Obesity Current Visit: No Status: Acute Code(s): E66.9 - OBESITY, UNSPECIFIED SNOMED Code(s): 622156217 Plan: Is currently on an vancomycin and Zosyn. General surgery is been counseled that in his artery seen her in planning on incision and drainage tomorrow. Her home medications have been restarted, she is hydromorphone, ibuprofen, and Tylenol ordered for pain. We'll add hydrocodone as another oral option. Continue on simvastatin for hyperlipidemia. We'll wait on her upcoming surgery. She'll be reevaluated next 24 hours
[2022-01-04] MEDS: VANCOMYCIN 1,750 MG in SODIUM CHLORIDE 0.9% 500 ML 500 ML IVPB SCH (14:44)
[2022-01-04] MEDS: PIPERACILLIN-TAZOBACTAM 3.375 GM in SODIUM CHLORIDE 0.9% 100 ML IVPB SCH (20:20)
[2022-01-04] MEDS: NON FORMULARY DRUG (Simvastatin 20 MG Tab) PO SCH (20:21)
[2022-01-05] MEDS: SODIUM CHLORIDE 0.9% 1,000 ML IV SCH ×2 (02:52→15:38)
[2022-01-05] MEDS: VANCOMYCIN 1,750 MG in SODIUM CHLORIDE 0.9% 500 ML 500 ML IVPB SCH ×2 (02:52→15:37)
[2022-01-05] MEDS: PIPERACILLIN-TAZOBACTAM 3.375 GM in SODIUM CHLORIDE 0.9% 100 ML IVPB SCH ×3 (04:30→20:54)
[2022-01-05] MEDS: FAMOTIDINE 20 MG TAB PO SCH ×2 (07:30→20:54)
[2022-01-05] MEDS: DOCUSATE 100 MG CAP PO SCH ×2 (07:30→20:54)
[2022-01-05] MEDS: ASCORBIC ACID 500 MG TAB PO SCH (07:30)
[2022-01-05] MEDS: CHOLECALCIFEROL 25 MCG (1000 IU) TABLET PO SCH (07:30)
[2022-01-05 09:15] LABS: Basophils % (A) 1 %; Eosinophils # (A) 0.4 k/uL (0-0.7); Eosinophils % (A) 6 %; HGB 12.8 gm/dL (11.4-16.0); Lymphocytes # (A) 1.3 k/uL (1.0-4.8); Lymphocytes % (A) 22 %; MCH 29.7 pg (25.0-35.0); MCHC 32.8 g/dL (31.0-37.0); MCV 90.8 fL (80.0-100.0); Mean Platelet Volume 8.3; Monocytes # (A) 0.4 k/uL (0-1.0); Monocytes % (A) 6 %; Neutrophils # (A) 3.8 k/uL (1.3-7.7); Neutrophils % (A) 61 %; Platelet Count 230 k/uL (150-450); RBC 4.29 m/uL (3.80-5.40); RDW 13.1 % (11.5-15.5); WBC 6.1 k/uL (3.8-10.6)
[2022-01-05] MEDS ORDERED: LACTATED RINGERS 1,000 ML IV ONE (09:51)
[2022-01-05] MEDS ORDERED: PROPOFOL 10 MG/ML 20 ML VIAL IV ONE (09:59)
[2022-01-05] MEDS ORDERED: fentaNYL (PF) 50 MCG/ML 2 ML AMP ONE (09:59)
[2022-01-05] MEDS ORDERED: MIDAZOLAM 2 MG/2 ML VIAL ONE (09:59)
[2022-01-05] MEDS ORDERED: ROCURONIUM 10 MG/ML (5 ML VIAL) IV ONE (09:59)
[2022-01-05] MEDS ORDERED: LIDOCAINE 2% INJ 20 MG/ML (2 ML VIAL) ONE (09:59)
[2022-01-05] MEDS ORDERED: SUCCINYLCHOLINE CHLORIDE 200 MG/10 ML VIAL IV ONE (09:59)
[2022-01-05] MEDS ORDERED: ONDANSETRON 4 MG/2 ML VIAL IVP ONE (10:00)
[2022-01-05] MEDS ORDERED: DEXAMETHASONE SOD PHOSPHATE 4 MG/ML 1 ML VIAL IVP ONE (10:01)
[2022-01-05] MEDS ORDERED: BUPIVACAIN-EPI 0.25%-1:200,000 30 ML VIAL SQ ONE (10:37)
--- NOTE | 2022-01-05 11:19 | P.OP ---
Date of Procedure: 01/05/22 Procedure(s) Performed: PREOPERATIVE DIAGNOSIS: Right groin abscess POSTOPERATIVE DIAGNOSIS: Same PROCEDURE: Incision and drainage right groin abscess SURGEON: Candi EBL: 5 mL ANESTHESIA: Gen. COMPLICATIONS: None OPERATIVE PROCEDURE: Patient placed in the operative table in lithotomy after general anesthesia was achieved. The right groin was inspected. The patient had a 6 mm wound present lateral to the labia majora draining purulent fluid. The wound was probed and noted to go primarily in a posterior direction. An incision was made with the scalpel until we entered into the abscess cavity. The abscess cavity itself measured approximately 8 x 5 cm. This did extend superiorly as well. The incision was lengthened somewhat that direction as well. Cultures were taken of the deep purulent collection. The wound was then irrigated with saline. The wound was then packed with iodoform gauze. Sterile dressings were applied. DISPOSITION: Stable to recovery room
[2022-01-05] MEDS ORDERED: HYDROmorphone 0.5 MG/0.5 ML SYRINGE IVP ONE (11:51)
[2022-01-05 14:51] LABS: Magnesium 2.1 mg/dL (1.5-2.4)
[2022-01-05 14:52] LABS: African American GFR (CKD) 113.2 (60.0-200.0); Anion Gap 9.5 mmol/L (10.00-18.00); BUN/Creat Ratio 12.5 Ratio (12.00-20.00); Blood Urea Nitrogen 7.5 mg/dL (9.0-27.0); Calcium 8.5 mg/dL (8.7-10.3); Carbon Dioxide 23.5 mmol/L (20.0-27.5); Non-African American GFR(CKD) 97.7 (60.0-200.0); Potassium 4.1 mmol/L (3.5-5.5)
[2022-01-05 15:00] VITALS: BMI 41.8
[2022-01-05] MEDS: HYDROcodone/APAP 5-325MG 1 EACH TAB PO PRN ×2 (15:45→22:15)
--- NOTE | 2022-01-05 16:53 | P.PN ---
Subjective Progress Note Date: 01/05/22 Chief Complaint: Right groin abscess 61-year-old female well known to the practice. She is morbidly obese with history of hypertension and hyperlipidemia. She reports on January 01 waking and feeling a painful area along with nausea and vomiting. She indicates increased foul-smelling yellowish brown drainage from the right groin wound. She is not diabetic nor taking SL GTT to medications. In the emergency room it seen and evaluated his severe pain. CT showed significant cellulitis 13 x 4 cm to the area. He is now admitted for IV antibiotics, surgical consultation for incision and drainage and localized wound care. 01/05/2022 recently returned from I&D, cultures obtained ,tolerated procedure well. Sitting up in bed, eating lunch denies any nausea vomiting diarrhea. Denies any lightheadedness, dizziness or focal deficits. Vital signs stable. Maintained on IV antibiotics of Zosyn, vancomycin. Renal function stable. Afebrile, normal WBC. Maintaining O2 sats in the 90s on room air. Denies chest pain, palpitations or shortness of breath. Objective - Vital Signs Vital signs: Vital Signs Temp 97.8 F 01/05/22 12:36 Pulse 86 01/05/22 14:36 Resp 18 01/05/22 12:36 BP 138/88 01/05/22 14:36 Pulse Ox 90 L 01/05/22 14:36 FiO2 Intake & Output 01/04/22 01/05/22 01/05/22 18:59 06:59 18:59 Intake Total 1080 700 Output Total 5 Balance 1080 695 Weight 121.109 kg Intake: IV 700 Oral 1080 Output: Estimated Blood Loss 5 Other: Voiding Method Toilet Toilet # Voids 3 2 - Exam GENERAL: Alert and oriented 3, Sitting up in bed, eating lunch, no acute distress HEAD: Atraumatic, normocephalic. EYES: Pupils equal round ,extraocular movements intact, sclera anicteric, conjunctiva are normal. NECK: Supple, no JVD, LUNGS: Unlabored, Breath sounds clear. HEART: Regular rate and rhythm without murmurs, rubs or gallops.S1S2 Normal ABDOMEN: Soft, nondistended, nontender, normoactive bowel sounds. No guarding, no rebound. EXTREMITIES: no pitting or edema. No clubbing or cyanosis. NEUROLOGICAL: Cranial nerves II through XII grossly intact. SKIN: Warm, Dry, no rashes. Right groin surgical dressing recently applied, clean, dry and intact. Microbiology 01/03/22 19:00 Blood Blood Culture - Preliminary No Growth after 24 hours 01/03/22 18:45 Blood Blood Culture - Preliminary No Growth after 24 hours 01/03/22 18:45 Groin Gram Stain - Preliminary 01/03/22 18:45 Groin Wound Culture - Preliminary Gram Neg Bacilli - Labs CBC & Chem 7: 01/05/22 08:07 01/05/22 08:07 Labs: Abnormal Lab Results - Last 24 Hours (Table) 01/05/22 Range/Units 08:07 Chloride 111 H (96-109) mmol/L Anion Gap 9.50 L (10.00-18.00) mmol/L BUN 7.5 L (9.0-27.0) mg/dL Calcium 8.5 L (8.7-10.3) mg/dL Microbiology - Last 24 Hours (Table) 01/03/22 19:00 Blood Culture - Preliminary Blood No Growth after 24 hours 01/03/22 18:45 Blood Culture - Preliminary Blood No Growth after 24 hours 01/03/22 18:45 Gram Stain - Preliminary Groin Wound Culture - Preliminary Gram Neg Bacilli Assessment and Plan Assessment: Assessment and Plan (1) Abscess of right groin, status post I&D with deep cultures obtained Current Visit: Yes Status: Acute Code(s): L02.214 - CUTANEOUS ABSCESS OF GROIN SNOMED Code(s): 91954394 (2) Leukocytosis, secondary to the above, resolved Current Visit: No Status: Acute Code(s): D72.829 - ELEVATED WHITE BLOOD CELL COUNT, UNSPECIFIED SNOMED Code(s): 751690731 (3) Essential (primary) hypertension Current Visit: Yes Status: Acute Code(s): I10 - ESSENTIAL (PRIMARY) HYPERTENSION SNOMED Code(s): 27284115 (4) Hyperlipidemia, unspecified Current Visit: Yes Status: Acute Code(s): E78.5 - HYPERLIPIDEMIA, UNSPECIFIED SNOMED Code(s): 81860535 (5) Obesity, morbid, BMI 41.8 Current Visit: No Status: Acute Code(s): E66.9 - OBESITY, UNSPECIFIED SNOMED Code(s): 109590015 Plan: Continue on current medication regime ,monitoring and symptomatic treatment. Maintain IV antibiotics, close monitoring of renal function. Close monitoring of wound and blood cultures. Wound care, pain management as per surgery. Aggressive pulmonary toileting with incentive spirometer ordered. The impression and plan of care has been dictated as directed. : I performed a history and examination of this patient, discussed the same with the dictator. I agree with the dictator's note ,documented as a scribe. Any additional findings or plans will be noted.
[2022-01-05] MEDS: NON FORMULARY DRUG (Simvastatin 20 MG Tab) PO SCH (20:54)
[2022-01-06] MEDS: VANCOMYCIN 1,750 MG in SODIUM CHLORIDE 0.9% 500 ML 500 ML IVPB SCH ×2 (02:56→15:14)
[2022-01-06] MEDS: PIPERACILLIN-TAZOBACTAM 3.375 GM in SODIUM CHLORIDE 0.9% 100 ML IVPB SCH ×2 (04:14→10:16)
[2022-01-06] MEDS: SODIUM CHLORIDE 0.9% 1,000 ML IV SCH ×2 (07:11→18:24)
[2022-01-06] MEDS: CHOLECALCIFEROL 25 MCG (1000 IU) TABLET PO SCH (10:16)
[2022-01-06] MEDS: FAMOTIDINE 20 MG TAB PO SCH (10:16)
[2022-01-06] MEDS: ASCORBIC ACID 500 MG TAB PO SCH (10:17)
[2022-01-06] MEDS: hydroCHLOROthiazide 12.5 MG CAP PO SCH (10:17)
[2022-01-06] MEDS: DOCUSATE 100 MG CAP PO SCH (10:17)
[2022-01-06] MEDS: HYDROcodone/APAP 5-325MG 1 EACH TAB PO PRN (10:35)
--- NOTE | 2022-01-06 13:22 | P.PN ---
Subjective Progress Note Date: 01/06/22 CHIEF COMPLAINT: Right groin abscess HISTORY OF PRESENT ILLNESS: Patient is postop day #1 status post incision and drainage of right groin abscess. Patient reports that her pain is controlled. She does have more pain with sitting. She denies any nausea or vomiting. She's tolerating diet. Afebrile. Cultures from OR are pending. Wound culture Proteus mirabilis. PHYSICAL EXAM: VITAL SIGNS: Reviewed. GENERAL: Well-developed in no acute distress. HEENT: No sclera icterus. Extraocular movements grossly intact. Moist buccal mucosa. Head is atraumatic, normocephalic. ABDOMEN: Soft. Nondistended. Nontender. Right groin wound is softer. The dressing shows a serosanguineous drainage. Area is less tender. NEUROLOGIC: Alert and oriented. Cranial nerves II through XII grossly intact. ASSESSMENT: 1. Right groin abscess status post incision and drainage PLAN: -Patient can be discharged from surgical standpoint -Recommend Augmentin at discharge -Continue local wound care -Recommend shower daily with daily dressing changes Physician Trimming Machine Set Up Operator note has been reviewed by physician. Signing provider agrees with the documented findings, assessment, and plan of care. I have personally seen and examined the patient, reviewed the CHIEF CRUISER /PAs history, exam and MDM and agree with the assessment and plan as written. Based on total visit time, I have performed more than 50% of the visit. As above: Patient doing well today. Pain is improved. Dressing was changed earlier. Continue antibiotics postdischarge. Continue local wound care. Follow-up one week. Objective - Vital Signs Vital signs: Vital Signs Temp 97.9 F 01/06/22 07:48 Pulse 63 01/06/22 07:48 Resp 16 01/06/22 07:48 BP 114/68 01/06/22 07:48 Pulse Ox 98 01/06/22 07:48 FiO2 Intake & Output 01/05/22 01/06/22 01/06/22 18:59 06:59 18:59 Intake Total 700 Output Total 5 Balance 695 Weight 121.109 kg Intake: IV 700 Output: Estimated Blood Loss 5 Other: Voiding Method Toilet # Voids 3 - Labs CBC & Chem 7: 01/05/22 08:07 01/06/22 15:06 Labs: Abnormal Lab Results - Last 24 Hours (Table) 01/05/22 Range/Units 08:07 Chloride 111 H (96-109) mmol/L Anion Gap 9.50 L (10.00-18.00) mmol/L BUN 7.5 L (9.0-27.0) mg/dL Calcium 8.5 L (8.7-10.3) mg/dL Microbiology - Last 24 Hours (Table) 01/05/22 10:41 Wound Culture - Preliminary Groin 01/05/22 10:41 Anaerobic Culture - Preliminary Groin 01/03/22 18:45 Blood Culture - Preliminary Blood No Growth after 48 hours 01/03/22 19:00 Blood Culture - Preliminary Blood No Growth after 48 hours 01/03/22 18:45 Gram Stain - Final Groin Wound Culture - Final Proteus mirabilis
[2022-01-06] MEDS ORDERED: VANCOMYCIN TROUGH DUE 1 EACH MISC MISCELLANE ONE (14:00)
[2022-01-06 14:37] VITALS: BP 117/70; PULSE 56; RESP 17; TEMP 98
[2022-01-06 16:07] LABS: African American GFR (CKD) >90 (>60 ml/min/1.73 sqM); Non-African American GFR(CKD) >90 (>60 ml/min/1.73 sqM)
--- NOTE | 2022-01-06 19:13 | P.DS ---
Providers Date of admission: 01/03/22 23:31 Expected date of discharge: 01/06/22 Attending physician: Hakeem Wolfe Consults: 01/04/22 01:24 Consult Physician Routine Consulting Provider: Mason Christopher Consult Reason/Comments: Abscess right groin, surrounding cellulitis Do you want consulting provider notified?: Yes, Notify in am Primary care physician: Hakeem Wolfe [place] Hospital Course: Final Diagnoses: (1) Abscess of right groin, status post I&D with deep cultures pending ; pre OR rebound cultures reporting Proteus mirabilis Current Visit: Yes Status: Acute Code(s): L02.214 - CUTANEOUS ABSCESS OF GROIN SNOMED Code(s): 01658708 (2) Leukocytosis, secondary to the above, resolved Current Visit: No Status: Acute Code(s): D72.829 - ELEVATED WHITE BLOOD CELL COUNT, UNSPECIFIED SNOMED Code(s): 493267184 (3) Essential (primary) hypertension Current Visit: Yes Status: Acute Code(s): I10 - ESSENTIAL (PRIMARY) HYPERTENSION SNOMED Code(s): 55553973 (4) Hyperlipidemia, unspecified Current Visit: Yes Status: Acute Code(s): E78.5 - HYPERLIPIDEMIA, UNSPECIFIED SNOMED Code(s): 22387033 (5) Obesity, morbid, BMI 41.8 Current Visit: No Status: Acute Code(s): E66.9 - OBESITY, UNSPECIFIED SNOMED Code(s): 743018342 Hospital course:61-year-old female well known to the practice. She is morbidly obese with history of hypertension and hyperlipidemia. She reports on January 01 waking and feeling a painful area along with nausea and vomiting. She indicates increased foul-smelling yellowish brown drainage from the right groin wound. She is not diabetic nor taking SL GTT to medications. In the emergency room it seen and evaluated his severe pain. CT showed significant cellulitis 13 x 4 cm to the area. He is now admitted for IV antibiotics, surgical consultation for incision and drainage and localized wound care. 01/05/2022 recently returned from I&D, cultures obtained ,tolerated procedure well. Sitting up in bed, eating lunch denies any nausea vomiting diarrhea. Denies any lightheadedness, dizziness or focal deficits. Vital signs stable. Maintained on IV antibiotics of Zosyn, vancomycin. Renal function stable. Af ebrile, normal WBC. Maintaining O2 sats in the 90s on room air. Denies chest pain, palpitations or shortness of breath. 01/06/2022 Pre OR wound culture reporting Proteus mirabilis, maintained on Z osyn. Deep wound cultures obtained during procedure pending. Afebrile, WBC. Pain controlled. Tolerating diet, denies nausea or vomiting. Significant clinical improvement. Patient will be discharged home today, in a stable condition with guarded prognosis, pending final DC recommendations/Wound Care/antibiotics/pain management and clearance as per general surgery. The impression and plan of care has been dictated as directed. : I performed a history and examination of this patient, discussed the same with the dictator. I agree with the dictator's note ,documented as a scribe. Any additional findings or plans will be noted. Patient Condition at Discharge: Stable Plan - Discharge Summary Discharge Rx Participant: Yes New Discharge Prescriptions: New Docusate [Colace] 100 mg PO BID cap Famotidine [Pepcid] 20 mg PO BID tab Amoxic-Pot Clav 875-125Mg [Augmentin 875-125] 1 tab PO Q12HR 7 Days #14 tab HYDROcodone/APAP 7.5-325MG [[place] 7.5-325] 1 tab PO Q6HR PRN 3 Days #12 tab PRN Reason: Pain Continue traMADol HCL [Ultram] 50 - 100 mg PO Q8H PRN PRN Reason: Pain Ubidecarenone [Co Q-10] 200 mg PO DAILY Cholecalciferol [Vitamin D3 (25 Mcg = 1000 Iu)] 25 mcg PO DAILY Zinc 50 mg PO DAILY hydroCHLOROthiazide 12.5 mg PO Q48H Wheat Dextrin [Benefiber] 1 packet PO DAILY Simvastatin [Zocor] 20 mg PO HS Ascorbic Acid [Vitamin C] 500 mg PO DAILY Discontinued Docusate [Colace] 100 mg PO DAILY Discharge Medication List Ubidecarenone [Co Q-10] 200 mg PO DAILY 04/02/16 [History] traMADol HCL [Ultram] 50 - 100 mg PO Q8H PRN 04/02/16 [History] Ascorbic Acid [Vitamin C] 500 mg PO DAILY 05/22/21 [History] Cholecalciferol [Vitamin D3 (25 Mcg = 1000 Iu)] 25 mcg PO DAILY 05/22/21 [History] Simvastatin [Zocor] 20 mg PO HS 05/22/21 [History] Zinc 50 mg PO DAILY 05/22/21 [History] hydroCHLOROthiazide 12.5 mg PO Q48H 05/22/21 [History] Wheat Dextrin [Benefiber] 1 packet PO DAILY 01/04/22 [History] Amoxic-Pot Clav 875-125Mg [Augmentin 875-125] 1 tab PO Q12HR 7 Days #14 tab 01/06/22 [Rx] Docusate [Colace] 100 mg PO BID cap 01/06/22 [Rx] Famotidine [Pepcid] 20 mg PO BID tab 01/06/22 [Rx] HYDROcodone/APAP 7.5-325MG [[place] 7.5-325] 1 tab PO Q6HR PRN 3 Days #12 tab 01/06/22 [Rx] Follow up Appointment(s)/Referral(s): Mason Christopher MD [Medical Doctor] - 1 Week [facility], [NON-STAFF] - As Needed Hakeem Wolfe MD [Primary Care Provider] - 01/19/22 11:30 am Patient Instructions/Handouts: Abscess (GEN), Abscess Incision and Drainage (DC) Activity/Diet/Wound Care/Special Instructions: Iodoform packing to right groin daily Shower daily Discharge Disposition: HOME WITH HOME HEALTH SERVICES
== END 2022-01-06 18:47 | disposition home health service (06) ==
LOC: EC 16:43 → 4SSUR 23:31
PROVIDERS: ADMIT Family Medicine; ATTEND Family Medicine
DX: L02.214 Cutaneous abscess of groin (principal); L03.314 Cellulitis of groin; E78.5 Hyperlipidemia, unspecified; I10 Essential (primary) hypertension; N28.1 Cyst of kidney, acquired; G62.9 Polyneuropathy, unspecified; E66.01 Morbid (severe) obesity due to excess calories; K57.30 Diverticulosis of large intestine without perforation or abscess without bleeding; B96.4 Proteus (mirabilis) (morganii) as the cause of diseases classified elsewhere; Z90.49 Acquired absence of other specified parts of digestive tract; Z79.899 Other long term (current) drug therapy; Z90.710 Acquired absence of both cervix and uterus; Z87.891 Personal history of nicotine dependence; Z80.49 Family history of malignant neoplasm of other genital organs; Z80.3 Family history of malignant neoplasm of breast; Z80.8 Family history of malignant neoplasm of other organs or systems; Z68.41 Body mass index [BMI] 40.0-44.9, adult
CPT/HCPCS: 10060; 96361 ×4; 96366 ×7; 96367; 96365 ×3; 96375; 99285; 36415; 93005; 80053 ×2; 80048; 85652; 82565; 83605; 83735; 84484; 85025 ×3; 80202; 85610; 86140; 81001; 87040; 87070 ×2; 87205 ×2; 87075; 87077; 87186; 74177; G0378 ×3; J2543 ×3; J2250; J3370 ×4; J0330; J2270; J1100; J2405 ×2; J3010; J2704; J1170; Q9967; J2001

== ENCOUNTER → 2022-05-06 | Outpatient (CLI) | payer BC ==
--- NOTE | 2022-05-07 08:04 | MR ---
EXAMINATION TYPE: MR knee LT wo con DATE OF EXAM: 05/06/2022 COMPARISON: Outside left knee x-ray April 21, 2022 HISTORY: Left knee pain and swelling for 2 years. TECHNIQUE: Multiplanar, multisequence images of the knee is performed without IV contrast. FINDINGS: Slightly suboptimal study due to large body habitus. MEDIAL MENISCUS: Subtle horizontal increased signal posterior horn does not extend to articular surfa ce. LATERAL MENISCUS: Horizontal increased signal in the lateral meniscus appears to extend to the centra l body and both horns. No definitive extension to articular surface. CRUCIATE LIGAMENTS: The posterior cruciate ligament is intact and unremarkable. Anterior cruciate lig ament is thickened with increased signal. COLLATERAL LIGAMENTS: The medial collateral ligament and lateral collateral ligament complex are inta ct and unremarkable. EXTENSOR MECHANISM: Visualized quadriceps and patellar tendons are intact. EFFUSION: No significant suprapatellar joint effusion. POPLITEAL CYST: Large size multiseptated popliteal/matias cyst measuring near 10 cm in length sagittal image 32 with some ill-defined fluid extending inferiorly. TRICOMPARTMENT SPACES: Severe patellofemoral compartment narrowing and spurring. Bone on bone appeara nce. Lateral subluxation or positioning of the patella. 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 CARTILAGE: Full thickness chondromalacia patella. [id number] appearance at this level. BONE MARROW SIGNAL: Heterogeneous diminished T1 and increased T2 signal along the posterior patellar pole. OTHER: No additional significant abnormality is appreciated. IMPRESSION: 1. Severe patellofemoral joint arthropathy with lateral subluxation. 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 2. At least intrasubstance tear through the entire lateral meniscus. Full-thickness meniscal tear not entirely excluded. 3. Intrasubstance tear posterior horn medial meniscus. 4. Large size leaking multi septated popliteal cyst.
== END | disposition home or self-care (01) ==
LOC: RADMRIMAIN 19:00
PROVIDERS: ATTEND Orthopaedic Surgery
DX: M23.222 Derangement of posterior horn of medial meniscus due to old tear or injury, left knee (principal); M17.12 Unilateral primary osteoarthritis, left knee; M71.22 Synovial cyst of popliteal space [Baker], left knee

== ENCOUNTER → 2022-06-09 | Outpatient (CLI) | payer BC ==
[2022-06-09 15:02] LABS: Basophils # (A) 0.04 X 10*3/uL (0.00-0.10); Basophils % (A) 0.7 %; Eosinophils # (A) 0.13 X 10*3/uL (0.04-0.35); Eosinophils % (A) 2.2 %; HCT 48.6 % (37.2-46.3); HGB 15.8 g/dL (12.0-15.0); Immature Grans, Automated 0.2 %; Lymphocytes # (A) 1.84 X 10*3/uL (0.90-5.00); Lymphocytes % (A) 30.7 %; MCH 28.8 pg (27.0-32.0); MCHC 32.5 g/dL (32.0-37.0); MCV 88.7 fL (80.0-97.0); Mean Platelet Volume 10.9 fL (9.5-12.2); Monocytes # (A) 0.41 X 10*3/uL (0.20-1.00); Monocytes % (A) 6.8 %; NRBC Per 100 WBC 0 /100 WBCS (0.0-0.0); Neutrophils # (A) 3.56 X 10*3/uL (1.80-7.70); Neutrophils % (A) 59.4 %; Platelet Count 199 X 10*3/uL (140-440); RBC 5.48 X 10*6/uL (4.10-5.20); RDW 13.8 % (11.5-14.5); WBC 5.99 X 10*3/uL (4.50-10.00)
[2022-06-09 16:31] LABS: Anion Gap 11.2 mmol/L (10.00-18.00); Carbon Dioxide 23.4 mmol/L (20.0-27.5); Potassium 4.6 mmol/L (3.5-5.5)
== END | disposition home or self-care (01) ==
LOC: LABPAT 10:00
PROVIDERS: ATTEND Orthopaedic Surgery
DX: Z01.818 Encounter for other preprocedural examination (principal); M23.92 Unspecified internal derangement of left knee
CPT/HCPCS: 80051; 85025; 93005

== ENCOUNTER 2022-06-17 09:36 | Day surgery (SDC) | payer BC ==
[2022-06-15 12:49] VITALS: BMI 43.4
--- NOTE | 2022-06-16 13:23 | HP ---
HISTORY AND PHYSICAL DATE OF SCHEDULED SURGERY: 06/17/2022. HISTORY OF PRESENT ILLNESS: Kristi Ibanez is a 62-year-old patient seen with progressive left knee pain. We discussed options for treatment. She elected to proceed with left knee arthroscopy. Consent regarding the procedure was obtained. PAST MEDICAL HISTORY: Hypertension, hyperlipidemia. PAST SURGICAL HISTORY: Colon surgery. DAILY MEDICATIONS: 1. Hydrochlorothiazide. 2. Simvastatin. 3. Tramadol. ALLERGIES: Lipitor. SOCIAL HISTORY: She denies tobacco use. PHYSICAL EVALUATION OF THE LEFT KNEE: Range of motion is 0 to 125 degrees. Mild effusion. Tenderness along the medial and lateral joint lines. Positive medial Lev's, positive lateral Lev's. Ligaments stable. Patellar crepitus on range of motion. Distal neurovascular exam is intact. RADIOGRAPHS: Left knee radiographs revealed osteoarthritic changes involving the patellofemoral joint. An MRI of the left knee revealed medial and lateral meniscal tears, patellofemoral compartment osteoarthritis, and a large popliteal cyst. IMPRESSION: 1. Internal derangement of left knee with medial and lateral meniscal tears. 2. Left knee patellofemoral compartment osteoarthritis. 3. Hyperlipidemia. 4. Hypertension. PLAN: Left knee arthroscopy with partial medial/lateral meniscectomy and debridement. MMODL / IJN: [id number] /
[~2022-06-17 09:36] MED LIST changes: -ACETAMINOPHEN TAB 500 MG TAB PO PRN; +DEXAMETHASONE SOD PHOSPHATE 4 MG/ML 1 ML VIAL IV ONE; -HEPARIN SODIUM,PORCINE/PF 5,000 UNIT/0.5 ML SYRINGE SQ PRN; +LACTATED RINGERS 1,000 ML IV SCH; +MIDAZOLAM 2 MG/2 ML VIAL IV PRN; +ONDANSETRON 4 MG/2 ML VIAL IVP ONE; -metroNIDAZOLE-NS PMX 500 MG in SALINE 1 100ML.BAG IVPB PRN
[2022-06-17 10:17] VITALS: RESP 16
[2022-06-17] MEDS ORDERED: HYDROmorphone (PF) 1 MG/ML ONE (10:56)
[2022-06-17] MEDS ORDERED: MIDAZOLAM 2 MG/2 ML VIAL ONE (10:56)
[2022-06-17] MEDS ORDERED: KETOROLAC 15 MG/ML 1 ML VIAL ONE (10:56)
[2022-06-17] MEDS ORDERED: LIDOCAINE 2% INJ 20 MG/ML (2 ML VIAL) ONE (10:56)
[2022-06-17] MEDS ORDERED: fentaNYL (PF) 50 MCG/ML 2 ML AMP ONE (10:56)
[2022-06-17] MEDS ORDERED: PROPOFOL 10 MG/ML 20 ML VIAL IV ONE (10:56)
[2022-06-17] MEDS ORDERED: SUCCINYLCHOLINE CHLORIDE 200 MG/10 ML VIAL IV ONE (10:56)
[2022-06-17] MEDS ORDERED: BUPIVACAINE (PF) 0.25% 30 ML VIAL SQ ONE (11:18)
[2022-06-17 11:46] VITALS: TEMP 97
--- NOTE | 2022-06-17 11:50 | P.OP ---
Date of Procedure: 06/17/22 Preoperative Diagnosis: Internal derangement left knee Postoperative Diagnosis: 1. Tear medial and lateral meniscus left knee 2. Grade 4 chondromalacia medial femoral condyle left knee 3. Grade 4 chondromalacia patellofemoral joint left knee 4. Reactive synovitis medial, lateral and suprapatellar compartments left knee 5. Partial ACL tear left knee Procedure(s) Performed: 1. Arthroscopic partial medial and lateral meniscectomy left knee 2. Arthroscopic microfracture medial femoral condyle left knee 3. Arthroscopic partial synovectomy medial, lateral and suprapatellar compartments left knee 4. Arthroscopic debridement partial ACL tear left knee 5. Arthroscopic chondroplasty medial femoral condyle left knee Anesthesia: ANNAA, local Surgeon: Edmund Osman Estimated Blood Loss (ml): 7 Pathology: none sent Condition: stable Disposition: PACU Indications for Procedure: 62-year-old patient seen with progressive left knee pain. After treatment options were discussed, she elected to proceed with arthroscopy. Operative Findings: See description of procedure Description of Procedure: Patient was taken to the operative suite. Patient underwent a general anesthetic by the department of anesthesia. Patient was given preoperative antibiotics. The left lower extremity was placed in a well-padded arthroscopic leg hagan. The left leg was prepped and draped in the normal sterile orthopedic fashion. A lateral parapatellar and suprapatellar incision was made. Trochars were inserted. Arthroscopy was initiated. Suprapatellar pouch revealed diffuse thick reactive synovitis. The patellofemoral joint appeared to articulate congruently. There was grade 4 chondromalacia of the patella and femoral sulcus with significant exposed bone on both sides. The scope was guided into the medial gutter. No loose bodies or plica were identified. The scope was then guided into the medial compartment. A medial parapatellar incision was made. Trocar inserted followed by probe. There was a complex tear posterior horn medial meniscus. There were grade 3/4 chondromalacia changes of the medial femoral condyle with some osteochondral flap tears present. There was some thick reactive synovitis anteriorly. I performed a partial medial meniscectomy getting down to stable meniscal tissue. I performed a chondroplasty of the medial femoral condyle getting down to stable osteochondral tissue. I performed a partial synovectomy decompressing the reactive synovitis. I did note an area of exposed bone weightbearing surface medial femoral condyle measuring 1.5 cm. I introduced a microfracture awl. I performed a microfracture to that area penetrating the bone with resultant bleeding at the microfracture site. The residual meniscus was probed and was found to be stable. The residual osteochondral surface was stable. There was good decompression of the synovitis. Scope and probe were then guided into the intercondylar notch. There was significant partial tearing of the anterior cruciate ligament. I debrided the getting down to stable ligamentous tissue. It appeared about 40% the residual ACL remained intact. The PCL was stable.. The scope and probe were then guided into lateral compartment. There was a radial tear involving the midbody of the lateral meniscus. There were grade 1/2 chondromalacia changes lateral compartment with no snuff and tears. There was thick reactive synovitis anteriorly. I performed a partial lateral meniscectomy getting down to stable meniscal tissue. I performed a partial synovectomy decompressing the reactive synovitis. The residual meniscus was stable. There was good decompression of the synovitis. The scope was in guided back into the suprapatellar compartment. I introduced a motorized shaver into the suprapatellar compartment. I debrided some piecemeal fragments of meniscus that I encountered. I performed a partial synovectomy. Shaver was now removed. There was good decompression of the synovitis. I now took one more look around the entire knee, no residual debris. Instruments were now removed from the joint. The joint was infiltrated with .25% Marcaine. Steri-Strips were applied to the portal sites. Sterile dressings were applied. The patient was placed into a NOLAN hose. No tourniquet was utilized. The patient was awakened, transferred to a bed and taken to recovery stable satisfactory condition.
[2022-06-17] MEDS ORDERED: LACTATED RINGERS 1,000 ML IV ONE ×2 (12:01)
[2022-06-17] MEDS ORDERED: HYDROcodone/APAP 5-325MG 1 EACH TAB ONE (13:15)
[2022-06-17] MEDS ORDERED: HYDROcodone/APAP 5-325MG 1 EACH TAB PO ONE (13:16)
[2022-06-17 14:08] VITALS: BP 118/80; PULSE 85
[2022-06-18] MEDS ORDERED: HYDROmorphone 0.5 MG/0.5 ML SYRINGE IVP PRN (07:00)
== END 2022-06-17 15:06 | disposition home or self-care (01) ==
LOC: OR 09:36
PROVIDERS: ATTEND Orthopaedic Surgery
DX: S83.232A Complex tear of medial meniscus, current injury, left knee, initial encounter (principal); S83.282A Other tear of lateral meniscus, current injury, left knee, initial encounter; S83.512A Sprain of anterior cruciate ligament of left knee, initial encounter; M94.262 Chondromalacia, left knee; M65.862 Other synovitis and tenosynovitis, left lower leg; M17.12 Unilateral primary osteoarthritis, left knee; X58.XXXA Exposure to other specified factors, initial encounter; I10 Essential (primary) hypertension; E78.5 Hyperlipidemia, unspecified; E66.01 Morbid (severe) obesity due to excess calories; Z68.41 Body mass index [BMI] 40.0-44.9, adult; Z79.899 Other long term (current) drug therapy; Z88.8 Allergy status to other drugs, medicaments and biological substances; G62.9 Polyneuropathy, unspecified; F12.90 Cannabis use, unspecified, uncomplicated
CPT/HCPCS: 29879; 29880; J2250; J0330; J1100; J0690; J2405; J3010; J1170; J1885; J2704; J2001

== ENCOUNTER → 2022-07-30 | Outpatient (CLI) | payer BC ==
--- NOTE | 2022-07-31 08:32 | MM ---
Reason for Exam: Screening (asymptomatic). Last mammogram was performed 1 year(s) and 2 month(s) ago. Patient History: Menarche at age 17. First Full-Term at age 24. Left ovary removed at age 34. Right ovary removed at age 35. Hysterectomy at age 35. Postmenopausal. Estrogen for 6 months. Mother had breast cancer, age 85. Risk Values: Esme 5 year model risk: 2.8%. NCI Lifetime model risk: 11.7%. Prior Study Comparison: 04/27/2017 Bilateral Screening Mammogram, [facility]. 07/11/2018 Bilateral Screening Mammogram, [facility]. 05/23/2021 Bilateral Screening Mammogram, [facility]. Tissue Density: There are scattered fibroglandular densities. Findings: Analyzed By CAD. There is no suspicious group of microcalcifications or new suspicious mass in either breast. Overall Assessment: Negative, BI-RAD 1 Management: Screening Mammogram of both breasts in 1 year. . Patient should continue monthly self-breast exams. A clinical breast exam by your physician is recommended on an annual basis. This exam should not preclude additional follow-up of suspicious palpable abnormalities. Note on Esme scores and lifetime risk: 1. A Esme score greater than 3% is considered moderate risk. If this is the case, consider specialist referral to assess eligibility for a risk reducing agent. 2. If overall lifetime risk for the development of breast cancer is 20% or higher, the patient may qualify for future screening with alternating mammogram and breast MRI. Electronically signed and approved by: Miguel Lerma M.D. Radiologis
== END | disposition home or self-care (01) ==
LOC: RADMAMWWP 09:24
PROVIDERS: ATTEND Family Medicine
DX: Z12.31 Encounter for screening mammogram for malignant neoplasm of breast (principal); Z78.0 Asymptomatic menopausal state; Z80.3 Family history of malignant neoplasm of breast
CPT/HCPCS: 77067

== ENCOUNTER → 2023-01-09 | Outpatient (CLI) | payer BC ==
[2023-01-09 23:03] LABS: BUN/Creat Ratio 18.29 Ratio (12.00-20.00); Blood Urea Nitrogen 12.8 mg/dL (9.0-27.0); Calcium 9.6 mg/dL (8.7-10.3); Carbon Dioxide 24.6 mmol/L (21.6-31.8); Chloride 106 mmol/L (96-109); Glucose 92 mg/dL (70-110); Potassium 4.1 mmol/L (3.5-5.5); Sodium 143 mmol/L (135-145)
[2023-01-12 06:01] LABS: Urine Alcohol Negative (Negative); Urine Barbiturate Negative (Negative); Urine Cocaine Negative (Negative); Urine Methadone Negative (Negative); Urine Opiates Negative (Negative); Urine Phencyclidine Negative (Negative)
== END | disposition home or self-care (01) ==
LOC: LABWHC1 11:51
PROVIDERS: ATTEND Family Medicine
DX: M19.012 Primary osteoarthritis, left shoulder (principal); Z79.899 Other long term (current) drug therapy
CPT/HCPCS: 36415; 80048

== ENCOUNTER → 2023-07-09 | Outpatient (CLI) | payer BC ==
[2023-07-09 19:31] LABS: HCT 44.8 % (37.2-46.3); HGB 14.3 g/dL (12.0-15.0); MCH 29.6 pg (27.0-32.0); MCHC 31.9 g/dL (32.0-37.0); MCV 92.8 FL (80.0-97.0); Mean Platelet Volume 11.3 FL (9.5-12.2); NRBC Per 100 WBC 0 X 10*3/uL (0.00-0.01); Platelet Count 209 X 10*3/uL (140-440); RBC 4.83 X 10*6/uL (4.10-5.20); RDW 14.5 % (11.5-14.5); WBC 7.27 X 10*3/uL (4.50-10.00)
[2023-07-09 19:32] LABS: Basophils # (A) 0.05 X 10*3/uL (0.00-0.10); Basophils % (A) 0.7 %; Eosinophils % (A) 1.4 %; Lymphocytes # (A) 1.66 X 10*3/uL (0.90-5.00); Lymphocytes % (A) 22.8 %; Monocytes % (A) 5.5 %; Neutrophils # (A) 5.04 X 10*3/uL (1.80-7.70); Neutrophils % (A) 69.3 %
[2023-07-09 19:45] LABS: ALT 17 U/L (8-44); AST 22 U/L (13-35); Albumin 4.1 g/dL (3.8-4.9); Albumin/Globulin Ratio 1.58 Ratio (1.60-3.17); Alkaline Phosphatase 66 U/L (41-126); BUN/Creat Ratio 14.71 Ratio (12.00-20.00); Blood Urea Nitrogen 10.3 mg/dL (9.0-27.0); Calcium 9.3 mg/dL (8.7-10.3); Carbon Dioxide 25.4 mmol/L (21.6-31.8); Chloride 106 mmol/L (96-109); Chol/HDL Ratio 2.46 Ratio; Globulin 2.6 g/dL (1.6-3.3); Glucose 98 mg/dL (70-110); LDL Cholesterol,Calculated 94.8 mg/dL (0.0-131.0); Potassium 4.1 mmol/L (3.5-5.5); Sodium 143 mmol/L (135-145); Total Bilirubin 0.6 mg/dL (0.3-1.2); Total Protein 6.7 g/dL (6.2-8.2)
== END | disposition home or self-care (01) ==
LOC: LABWHC1 12:43
PROVIDERS: ATTEND Family Medicine
DX: Z00.00 Encounter for general adult medical examination without abnormal findings (principal); Z12.31 Encounter for screening mammogram for malignant neoplasm of breast; I10 Essential (primary) hypertension; E78.2 Mixed hyperlipidemia; M15.8 Other polyosteoarthritis; E66.01 Morbid (severe) obesity due to excess calories; Z90.49 Acquired absence of other specified parts of digestive tract; Z68.41 Body mass index [BMI] 40.0-44.9, adult
CPT/HCPCS: 36415; 80053; 80061; 84443; 85025

== ENCOUNTER → 2023-08-06 | Outpatient (CLI) | payer BC ==
--- NOTE | 2023-08-06 23:04 | CTL ---
EXAMINATION TYPE: CT Low Dose Lung DATE OF EXAM ORDERED: 08/06/2023 HISTORY: Personal history of nicotine dependence, 44 pack-year history, not an active smoker. Lung ca ncer screening CT DLP: 136.[address] CTDI: 4.0 mGy Automated exposure control for dose reduction was used. SCREENING VISIT: COMPARISON: CT low-dose lung cancer screening 12/19/2015 TECHNIQUE: Low dose computed tomography scan was performed through the chest at 1 mm thick sections a nd reconstructed images in multiple planes at 1 mm and [address] DIAGNOSTIC QUALITY: Limited, but interpretable FINDINGS: Nodules: No clinically suspicious point nodules. Calcified granuloma within the left lower lobe. LUNGS: COPD: Severity: None Fibrosis: Severity: None Lymph nodes: None Other findings: Linear scarring and/or atelectasis within the lateral left lower lobe. RIGHT PLEURAL SPACE: Effusion: None Calcification: None Thickening: None Pneumothorax: None LEFT PLEURAL SPACE: Effusion: None Calcification: None Thickening: None Pneumothorax: None HEART: Heart Size: Mildly Enlarged Coronary Calcification: None Pericardial Effusion: None OTHER FINDINGS: Upper abdomen: The gallbladder appears surgically absent. Bony thorax: None Supraclavicular region: None Other: None IMPRESSION: No clinically significant pulmonary nodules. CT LUNG RAD AND CT CHEST RECOMMENDATION: Lung-Rad 1 Negative: Continue annual screening with LDCT in 12 months. S Modifier (other clinically significant findings): None
--- NOTE | 2023-08-09 18:54 | MM ---
Reason for Exam: Screening (asymptomatic). Last screening mammogram was performed 12 month(s) ago. Patient History: Menarche at age 17. First Full-Term at age 24. Left ovary removed at age 34. Right ovary removed at age 35. Hysterectomy at age 35. Postmenopausal. Estrogen for 6 months. Mother had breast cancer, age 85. Risk Values: Esme 5 year model risk: 2.9%. NCI Lifetime model risk: 11.3%. Prior Study Comparison: 07/11/2018 Bilateral Screening Mammogram, [facility]. 05/23/2021 Bilateral Screening Mammogram, [facility]. 07/30/2022 Bilateral MG 3D screening mammo w/cad, [facility]. Tissue Density: There are scattered areas of fibroglandular density. Findings: Analyzed By CAD. There is no suspicious group of microcalcifications or new suspicious mass in either breast. Overall Assessment: Negative, BI-RAD 1 Management: Screening Mammogram of both breasts in 1 year. . Patient should continue monthly self-breast exams. A clinical breast exam by your physician is recommended on an annual basis. This exam should not preclude additional follow-up of suspicious palpable abnormalities. Note on Esme scores and lifetime risk: 1. A Esme score greater than 3% is considered moderate risk. If this is the case, consider specialist referral to assess eligibility for a risk reducing agent. 2. If overall lifetime risk for the development of breast cancer is 20% or higher, the patient may qualify for future screening with alternating mammogram and breast MRI. Electronically signed and approved by: Jennifer Lucia M.D. Radiologist
== END | disposition home or self-care (01) ==
LOC: RADCTMAIN 08:40
PROVIDERS: ATTEND Family Medicine
DX: Z12.31 Encounter for screening mammogram for malignant neoplasm of breast (principal); Z12.2 Encounter for screening for malignant neoplasm of respiratory organs; Z78.0 Asymptomatic menopausal state; Z80.3 Family history of malignant neoplasm of breast; Z87.891 Personal history of nicotine dependence
CPT/HCPCS: 71271; 77063; 77067

== ENCOUNTER → 2023-09-10 | Outpatient (CLI) | payer BC ==
[2023-09-11 01:56] LABS: Basophils # (A) 0.04 X 10*3/uL (0.00-0.10); Basophils % (A) 0.5 %; Eosinophils # (A) 0.14 X 10*3/uL (0.04-0.35); Eosinophils % (A) 1.9 %; HCT 46.2 % (37.2-46.3); HGB 15.1 g/dL (12.0-15.0); Lymphocytes # (A) 2.04 X 10*3/uL (0.90-5.00); Lymphocytes % (A) 27.1 %; MCH 29.4 pg (27.0-32.0); MCHC 32.7 g/dL (32.0-37.0); MCV 90.1 FL (80.0-97.0); Mean Platelet Volume 10.7 FL (9.5-12.2); Monocytes # (A) 0.51 X 10*3/uL (0.20-1.00); Monocytes % (A) 6.8 %; NRBC Per 100 WBC 0 X 10*3/uL (0.00-0.01); Neutrophils # (A) 4.77 X 10*3/uL (1.80-7.70); Neutrophils % (A) 63.4 %; Platelet Count 213 X 10*3/uL (140-440); RBC 5.13 X 10*6/uL (4.10-5.20); RDW 13.8 % (11.5-14.5); WBC 7.52 X 10*3/uL (4.50-10.00)
[2023-09-11 02:08] LABS: Blood Urea Nitrogen 13.5 mg/dL (9.0-27.0); Carbon Dioxide 24.5 mmol/L (21.6-31.8); Chloride 109 mmol/L (96-109); Glucose 98 mg/dL (70-110); Potassium 3.9 mmol/L (3.5-5.5); Sodium 144 mmol/L (135-145)
[2023-09-11 02:09] LABS: Calcium 9.1 mg/dL (8.7-10.3)
== END | disposition home or self-care (01) ==
LOC: LABPAT 12:29
PROVIDERS: ATTEND Orthopaedic Surgery
DX: Z01.818 Encounter for other preprocedural examination
CPT/HCPCS: 80048; 85025; 87070; 93005

== ENCOUNTER 2023-10-06 06:35 | Observation (INO) | payer BC ==
--- NOTE | 2023-10-05 18:16 | HP ---
HISTORY AND PHYSICAL DATE OF SCHEDULED SURGERY: 10/06/2023. HISTORY OF PRESENT ILLNESS: Kristi Ibanez is a 63-year-old patient, seen with symptomatic left knee osteoarthritis. We discussed options regarding treatment. She elected to proceed with left total knee arthroplasty. Consent was obtained. Her primary care physician is Dr. Wolfe. PAST MEDICAL HISTORY: Hypertension, hyperlipidemia. SURGICAL HISTORY: Colon surgery. DAILY MEDICATIONS: 1. Hydrochlorothiazide. 2. Simvastatin. 3. Celebrex. 4. Tramadol. ALLERGIES: Lipitor. SOCIAL HISTORY: She denies tobacco use. PHYSICAL EVALUATION OF LEFT KNEE: Range of motion is 0 to 120 degrees. Mild effusion. Tenderness to medial joint line. Crepitance along the medial patellofemoral compartments with range of motion. Pain with patellofemoral compression. Ligaments stable. Hip rotation without pain. Distal neurovascular exam intact. RADIOGRAPHS: Left knee radiographs reveal severe osteoarthritic changes. IMPRESSION: 1. Left knee osteoarthritis. 2. Hypertension. 3. Hyperlipidemia. PLAN: Left total knee arthroplasty. MMODL / IJN: [id number] /
[~2023-10-06 06:35] MED LIST changes: -DEXAMETHASONE SOD PHOSPHATE 4 MG/ML 1 ML VIAL IV ONE; -LACTATED RINGERS 1,000 ML IV SCH; +LIDOCAINE 1% (10MG/ML) FOR IV START INTRADERMA PRN; -MIDAZOLAM 2 MG/2 ML VIAL IV PRN; -ONDANSETRON 4 MG/2 ML VIAL IVP ONE; +TRANEXAMIC 1,000 MG/100ML-NACL 1,000 MG in SALINE 1 100ML.BAG IVPB PRN; -ceFAZolin 3 GM in SODIUM CHLORIDE 0.9% 100 ML IVPB PRN
[2023-10-06] MEDS ORDERED: HYDROmorphone 0.5 MG/0.5 ML SYRINGE IVP PRN ×3 (07:00→10:35)
[2023-10-06] MEDS: LACTATED RINGERS 1,000 ML IV SCH ×2 (07:20→12:26)
[2023-10-06] MEDS: IV FLUID CONTINUATION 1,000 ML IV ONE (07:20)
[2023-10-06] MEDS: DEXAMETHASONE SOD PHOSPHATE 4 MG/ML 1 ML VIAL IV ONE (07:27)
[2023-10-06] MEDS: ONDANSETRON 4 MG/2 ML VIAL IVP ONE (07:27)
[2023-10-06] MEDS: ACETAMINOPHEN TAB 500 MG TAB PO PRN (07:28)
[2023-10-06] MEDS: MELOXICAM 7.5 MG TAB PO PRN (07:28)
[2023-10-06] MEDS: MIDAZOLAM 2 MG/2 ML VIAL IVP ONE (07:40)
[2023-10-06 07:49] LABS: Prothrombin Time 10.5 sec (10.0-12.5)
--- NOTE | 2023-10-06 08:16 | P.ANPRN ---
Procedure Note - Anesthesia - Nerve Block Performed Left iPack Single Time Out Performed: Yes Date of Procedure: 10/06/23 Procedure Start Time: 07:42 Procedure Stop Time: 07:47 Location of Patient: PreOp Indication: Acute Post-Operative Pain, Analgesia, Requested by Surgeon Sedation Type: Sedate with meaningful contact maintained Preparation: Sterile Prep Position: Right Lateral Needle Types: Pajunk Needle Gauge: 21 Ultrasound used to visualize needle placement: Yes Ultrasound used to observe medication spread: Yes Injectate: 0.5% Ropivacaine (see comment for volume) (Ropiv 20ml+Decadron 4mg) Blood Aspirated: No Pain Paresthesia on Injection Noted: No Resistance on Injection: Normal Image Stored and Saved: Yes Events: Uneventful and Well Tolerated
--- NOTE | 2023-10-06 08:17 | P.ANPRN ---
Procedure Note - Anesthesia - Nerve Block Performed Left Adductor Canal Infusion Time Out Performed: Yes Date of Procedure: 10/06/23 Procedure Start Time: 07:47 Procedure Stop Time: 07:52 Location of Patient: PreOp Indication: Acute Post-Operative Pain, Analgesia, Requested by Surgeon Sedation Type: Sedate with meaningful contact maintained Preparation: Sterile Prep Position: Supine Catheter: Indwelling Needle Types: On-Q Needle Gauge: 21 Ultrasound used to visualize needle placement: Yes Ultrasound used to observe medication spread: Yes Injectate: 0.5% Ropivacaine (see comment for volume) (Ropiv 20ml+decadron 4mg) Blood Aspirated: No Pain Paresthesia on Injection Noted: No Resistance on Injection: Normal Image Stored and Saved: Yes Events: Uneventful and Well Tolerated
[2023-10-06] MEDS ORDERED: DEXAMETHASONE SOD PHOSPHATE 4 MG/ML 1 ML VIAL ONE (08:41)
[2023-10-06] MEDS ORDERED: GLYCOPYRROLATE 0.2 MG/ML 2 ML VIAL ONE (08:41)
[2023-10-06] MEDS ORDERED: ROPIVACAINE 5 MG/ML 30 ML VIAL ONE (08:41)
[2023-10-06] MEDS ORDERED: KETAMINE HCL IN 0.9 % NACL 50 MG/5 ML SYRINGE ONE (08:41)
[2023-10-06] MEDS ORDERED: TRANEXAMIC 1,000 MG/100ML-NACL PREMIX BAG ONE (08:41)
[2023-10-06] MEDS ORDERED: MIDAZOLAM 2 MG/2 ML VIAL ONE (08:41)
[2023-10-06] MEDS ORDERED: fentaNYL (PF) 50 MCG/ML 2 ML AMP ONE (08:41)
[2023-10-06] MEDS ORDERED: PROPOFOL 10 MG/ML 20 ML VIAL IV ONE (08:41)
[2023-10-06] MEDS: ceFAZolin 3 GM in SODIUM CHLORIDE 0.9% 100 ML IVPB PRN (08:46)
[2023-10-06] MEDS: ceFAZolin 1,000 MG in SODIUM CHLORIDE 0.9% 1,000 ML IRRIGATION ONE (09:15)
[2023-10-06] MEDS: LACTATED RINGERS 1,000 ML IV ONE (09:56)
[2023-10-06] MEDS: VANCOMYCIN 1,000 MG VIAL MISCELLANE ONE (09:57)
--- NOTE | 2023-10-06 10:34 | P.OP ---
Date of Procedure: 10/06/23 Preoperative Diagnosis: Left knee osteoarthritis Postoperative Diagnosis: Left knee osteoarthritis Procedure(s) Performed: Left total knee arthroplasty Implants: 1. DePuy attune size 6 narrow left cruciate retaining cemented femur 2. DePuy attune size 5 fixed-bearing cemented tibial baseplate 3. DePuy attune size 6 fixed-bearing cruciate retaining 10 mm polyethylene tibial insert Anesthesia: regional (Adductor canal catheter, iPAQ block), spinal Surgeon: Edmund Osman Payroll Administrative Assistant #1: Kamron Parr Estimated Blood Loss (ml): 50 Pathology: none sent Condition: stable Disposition: PACU Indications for Procedure: 63-year-old patient seen with symptomatic left knee osteoarthritis. After having treatment options discussed, she elected to proceed with total knee arthroplasty. Operative Findings: See description of procedure Description of Procedure: Patient was taken to the operative suite after having an adductor canal catheter placed by the department of anesthesia. Patient underwent a spinal anesthetic by the department of anesthesia. Patient was given preoperative IV intake antibiotics and TXA. A well-padded tourniquet was placed about the [] lower extremity. The lower extremity was then prepped and draped in the normal sterile orthopedic fashion. The extremity was elevated, a tourniquet was insufflated to 300. A standard anterior incision was made sharply through skin. Dissection was taken down through the subcutaneous soft tissues down to the extensor mechanism. A medial arthrotomy was performed, patella was everted and knee was flexed. There was advanced osteoarthritis noted. I introduced my distal intramedullary femoral drill. I then introduced the distal femoral cutting jig. Kamran ALAN secured the cutting jig with 2 pins. I held retractors in position while Kamran ALAN performed the distal femoral resection through the guide area we now removed her distal femoral cutting guide. We now placed our 4-in-1 femoral cutting block and positioned and it was secured with 2 pins by Kamran ALAN while I held the block in position. The distal femoral finishing was now completed. A proximal tibial cutting guide was positioned. I held the guide in the appropriate position with both hands well Kamran ALAN inserted stabilizing pins into the guide. Proximal tibial cut was made. We now placed a trial femoral component into position, along with an appropriate size tibial tray and insert. We now took the knee through range of motion and had full extension good flexion and good overall soft tissue balance noted. The patella was evaluated. There was severe bone loss of the patella. I used a rongeur and removed all of the large osteophytes. We now checked the thickness of the patella and it measured about 7 to 8 mm. This is not enough to accommodate a patellar component and I was concerned regarding patella fracture so we did not resurface the patella. Drill holes were made through the femoral component. All trial components were removed after marking off the appropriate rotation of the tibia. Retractors were now positioned along the proximal tibia. An appropriate keel punch was made with the appropriate size tibial guide by myself on Kamran ALAN assisted by holding retractors. At this point appropriate size implants were chosen and opened. The joint was irrigated copiously with pulse lavage mechanical irrigation. The posterior capsule was infiltrated with local analgesic. The wound was irrigated with pulse lavage mechanical irrigation. We mixed antibiotic methylmethacrylate. We placed the knee into flexion. We placed multiple retractors assisted by Kamran ALAN to expose the proximal tibia. Once the methyl methacrylate was ready, the tibial component was cemented into place removing any excess methylmethacrylate form by both myself and Kamran ALAN. The femoral component was cemented into place removing the removing any excess methylmethacrylate performed by both myself and Kamran ALAN. We then inserted the appropriate size polyethylene tibial insert. We made sure that it was locked into position. We took the knee into full extension, and then back in a flexion making sure we had removed any excess methylmethacrylate. We kept the knee in full extension until methylmethacrylate had hardened. Once it had hardened the patellar clamp was removed. The knee was taken through full range of motion. The patella tracked nicely. There was good soft tissue balancing. The tourniquet was now released. Additional hemostasis was achieved via electrocautery. A second gram of TXA was given. The wound again was irrigated with pulse lavage mechanical irrigation. The extensor mechanism was repaired with Vicryl. We checked the repair with range of motion and it was stable. The subcutaneous soft tissues were repaired with Vicryl in layers. The skin was approximated with pernio/Dermabond. Sterile dressings were applied followed by loose web roll and Fercho bandage. The patient was transferred to a bed, and taken to recovery in stable and satisfactory condition. Kamran ALAN assisted with this complex procedure.
[2023-10-06] MEDS ORDERED: ONDANSETRON 4 MG/2 ML VIAL IVP PRN (10:35)
[2023-10-06] MEDS ORDERED: NALOXONE 0.4 MG/ML 1 ML VIAL IV PRN (10:35)
[2023-10-06] MEDS: droPERidol 5 MG/2 ML VIAL IVP ONE (11:29)
[2023-10-06] MEDS: ROPIVACAINE 1,100 MG, SODIUM CHLORIDE 0.9% 500 ML 330 ML, EMPTY PAIN BALL 1 EACH MISCELLANE PRN (11:29)
--- NOTE | 2023-10-06 11:40 | XR ---
EXAMINATION TYPE: XR knee limited LT DATE OF EXAM: 10/06/2023 COMPARISON: NONE TECHNIQUE: Two views submitted HISTORY: Post op FINDINGS: There is a prosthetic knee in near anatomic alignment. There is soft tissue edema and soft tissue e mphysema. Surgical jordy. IMPRESSION: 1. Postoperative change. Appears in near-anatomic alignment
[2023-10-06] MEDS: HYDROcodone/APAP 5-325MG 1 EACH TAB PO PRN (12:24)
[2023-10-06] MEDS: PANTOPRAZOLE 40 MG/10 ML VIAL IVP SCH (12:42)
[2023-10-06] MEDS: HYDROmorphone 1 MG/ML 1 ML SYRINGE IVP PRN (15:02)
[2023-10-06] MEDS: ceFAZolin 3 GM in SODIUM CHLORIDE 0.9% 100 ML IVPB SCH (15:37)
[2023-10-06] MEDS: DOCUSATE 100 MG CAP PO SCH (20:05)
[2023-10-06] MEDS: SENNOSIDES-DOCUSATE SODIUM 1 EACH TAB PO SCH (20:05)
[2023-10-06] MEDS: HYDROcodone/APAP 7.5-325MG 1 EACH TAB PO PRN (20:06)
[2023-10-06] MEDS ORDERED: ENOXAPARIN 30 MG/0.3 ML SYRINGE SQ ONE (23:20)
[2023-10-07] MEDS ORDERED: HYDROmorphone 1 MG/ML 1 ML SYRINGE ONE (01:52)
[2023-10-07] MEDS ORDERED: HYDROcodone/APAP 7.5-325MG 1 EACH TAB ONE (02:37)
[2023-10-07] MEDS: ENOXAPARIN 30 MG/0.3 ML SYRINGE SQ SCH (05:57)
[2023-10-07] MEDS: NON FORMULARY DRUG (Ubidecarenone [Co Q-10] 100 MG Capsule) PO SCH (08:24)
[2023-10-07] MEDS: MULTIVITAMINS, THERA 1 EACH TAB PO SCH (09:08)
[2023-10-07] MEDS: MELOXICAM 7.5 MG TAB PO SCH (09:08)
--- NOTE | 2023-10-07 09:47 | P.PN ---
Progress Note - Text Progress Note Date: 10/07/23 Anesthesiology Postop day 1 status post total knee arthroplasty with adductor canal catheter. Patient doing well. VAS 5 out of 10. Gross strength intact in lower extremity. Afebrile. Denies alterations in sensorium. Catheter site intact. Heart regular rate Lungs nonlabored Abdomen nondistended Assessment: Postop day 1 status post total knee arthroplasty with adductor canal catheter Plan: 1.All questions answered. Maintain catheter 2 more days with patient removal at home. Instructions to be given at discharge. 2.This note was dictated using [employer] software. Please be advised there is a potential for misspellings or errors in data coder operator.
[2023-10-07 10:58] LABS: Basophils # (A) 0.02 X 10*3/uL (0.00-0.10); Basophils % (A) 0.2 %; Eosinophils # (A) 0 X 10*3/uL (0.04-0.35); Eosinophils % (A) 0 %; HCT 37.7 % (37.2-46.3); HGB 12.5 g/dL (12.0-15.0); Lymphocytes # (A) 1.28 X 10*3/uL (0.90-5.00); Lymphocytes % (A) 11.3 %; MCH 30.1 pg (27.0-32.0); MCHC 33.2 g/dL (32.0-37.0); MCV 90.8 FL (80.0-97.0); Mean Platelet Volume 10.7 FL (9.5-12.2); Monocytes # (A) 0.74 X 10*3/uL (0.20-1.00); Monocytes % (A) 6.6 %; NRBC Per 100 WBC 0 X 10*3/uL (0.00-0.01); Neutrophils # (A) 9.19 X 10*3/uL (1.80-7.70); Neutrophils % (A) 81.5 %; Platelet Count 168 X 10*3/uL (140-440); RBC 4.15 X 10*6/uL (4.10-5.20); RDW 13.8 % (11.5-14.5); WBC 11.28 X 10*3/uL (4.50-10.00)
--- NOTE | 2023-10-07 11:11 | P.CONS ---
History of Present Illness - Reason for Consult Consult date: 10/07/23 Medical management Requesting physician: Edmund Osman - Chief Complaint Left knee osteoarthritis, status post surgical repair - History of Present Illness Is a pleasant 63-year-old female with past medical history significant for morbid obesity, hypertension, hyperlipidemia and multiple other medical issues status post left total knee arthroplasty. Tolerated procedure well. Reports ++pain with exertion. Participated with PT, completed steps. Denies chest pain, palpitations or shortness of breath. Blood pressure soft, asymptomatic, denies lightheadedness, dizziness or focal deficits. Passing flatus. Using incentive spirometer, up to 3500. Review of Systems ROS Statement: Those systems with pertinent positive or pertinent negative responses have been documented in the HPI. ROS Other: All systems not noted in ROS Statement are negative. Past Medical History Past Medical History: Hyperlipidemia, Hypertension, Osteoarthritis (OA) Additional Past Medical History / Comment(s): NEUROPATHY , MORBID OBESITY, HEMORRHOID, History of Any Multi-Drug Resistant Organisms: None Reported Past Surgical History: Appendectomy, Cholecystectomy, Hernia Repair, Hysterectomy, Orthopedic Surgery, Tonsillectomy Additional Past Surgical History / Comment(s): Left ankle tendon repair 1979. D&C 1988. Hyst 1995. BILAT OVAIRIAN CYSTECTOMY, HERNIA X 2, CORTISONE SHOT 02/12/16, Colectomy, Left TKA 10/06/23. Past Anesthesia/Blood Transfusion Reactions: Previous Problems w/ Anesthesia, Postoperative Nausea & Vomiting (PONV) Additional Past Anesthesia/Blood Transfusion Reaction / Comm: Postoperative nausea and vomiting Past Psychological History: No Psychological Hx Reported Smoking Status: Former smoker Past Alcohol Use History: Rare Additional Past Alcohol Use History / Comment(s): STARTED SMOKING AT AGE 15 QUIT MAR 2016 SMOKED 1 PACK PER WEEK Past Drug Use History: None Reported, Marijuana Additional Drug Use History / Comment(s): USES MARIJUANA NIGHTLY NEEDED PER PAIN - Past Family History Mother Family Medical History: AFIB, Cancer, Deep Vein Thrombosis (DVT) Additional Family Medical History / Comment(s): States uterine cancer.BREAT CANCER, GROIN CANCER " Father History Unknown: Yes Medications and Allergies Home Medications Medication Instructions Recorded Confirmed Type Ubidecarenone [Co Q-10] 200 mg PO DAILY 04/02/16 10/06/23 History Simvastatin [Zocor] 20 mg PO HS 05/22/21 10/06/23 History hydroCHLOROthiazide 12.5 mg PO Q48H 05/22/21 10/06/23 History Wheat Dextrin [Benefiber] 1 packet PO DAILY 01/04/22 10/06/23 History Docusate [Colace] 100 mg PO BID cap 01/06/22 10/06/23 Rx Multivit-Min/Iron/Folic/Lutein 1 each PO DAILY 06/15/22 10/06/23 History [Centrum Silver Women Tablet] traMADol HCL/ACETAMINOPHEN 2 tab PO Q6H PRN 06/15/22 10/06/23 History [Ultracet 37.5-325] Celecoxib 200 mg PO DAILY 10/05/23 10/06/23 History Allergies Allergy/AdvReac Type Severity Reaction Status Date / Time atorvastatin [From Lipitor] AdvReac JOINT PAIN Verified 10/06/23 06:52 Physical Exam Vitals: Vital Signs Temp Pulse Pulse Resp BP Pulse Ox 10/07/23 08:00 98.2 F 56 L 18 97/59 94 L 10/07/23 02:00 98.1 F 51 L 114/69 94 L 10/06/23 20:00 98 F 65 120/70 97 10/06/23 14:00 97.6 F 85 17 142/88 96 10/06/23 11:58 97.4 F L 67 17 132/71 97 10/06/23 11:31 52 L 16 121/66 97 10/06/23 11:15 51 L 16 110/60 96 10/06/23 11:00 97 F L 58 L 16 126/65 97 Intake and Output 10/06/23 10/07/23 10/07/23 22:59 06:59 14:59 Other: # Voids 1 2 # Bowel Movements 1 GENERAL: Alert and oriented 3, sitting up in chair, no acute distress HEAD: Atraumatic, normocephalic. EYES: Pupils equal round ,extraocular movements intact, sclera anicteric, conjunctiva are normal. NECK: Supple, no JVD LUNGS: Unlabored, Breath sounds clear. HEART: Regular rate and rhythm without murmurs, rubs or gallops.S1S2 Normal ABDOMEN: Soft, nondistended, nontender, normoactive bowel sounds. No guarding, no rebound. EXTREMITIES: Left leg elevated, ice pack over surgical site, dressing clean dry and intact, mild edema, no calf pain, positive DP pulse NEUROLOGICAL: Cranial nerves II through XII grossly intact. Strength and sensation grossly intact. SKIN: Warm, Dry, no rash noted Assessment and Plan Assessment: Left knee osteoarthritis status post left total knee arthroplasty History of essential hypertension, currently soft-asymptomatic Hyperlipidemia Morbid obesity, BMI 45.8 Plan: Continue on current medication regimen, monitoring and symptomatic treatment. Aggressive pulmonary toileting with incentive spirometer reinforced. Pain management and DVT prophylaxis as per primary. PT. Follow-up with Dr. Wolfe in 1 week. Thank you for the consult. The impression and plan of care has been dictated as directed. Dr.: I performed a history and examination of this patient, discussed the same with the dictator. I agree with the dictator's note ,documented as a scribe. Any additional findings or plans will be noted.
--- NOTE | 2023-10-07 11:56 | P.PN ---
Subjective Progress Note Date: 10/07/23 Principal diagnosis: Status post left total knee arthroplasty Patient is evaluated today at bedside, she is resting in her hospital bed. Patient was able to work with physical therapy today, she notices increase in pain when ambulating. She has been utilizing IV Dilaudid to help with pain control. She denies any headaches, lightheadedness, chest pain or shortness of breath. Objective - Vital Signs Vital signs: Vital Signs Temp 98.2 F 10/07/23 08:00 Pulse 56 L 10/07/23 08:00 Resp 18 10/07/23 08:00 BP 97/59 10/07/23 08:00 Pulse Ox 94 L 10/07/23 08:00 FiO2 Intake & Output 10/06/23 10/07/23 10/07/23 18:59 06:59 18:59 Intake Total 1351 Output Total 55 Balance 1296 Weight 132.7 kg Intake: IV 1351 Output: Estimated Blood Loss 55 Other: # Voids 1 2 # Bowel Movements 1 - Exam Left lower extremity: Incision is clean, dry, and intact. The foam dressing is in good condition. There is minimal soft tissue swelling and ecchymosis surrounding the medial and lateral aspects of the incision. Calf is soft, no tenderness with palpation. Plantar flexion, dorsiflexion, EHL, FHL are intact. Sensory exam to light touch throughout the extremity is intact, dorsal pedis pulses 2+. - Labs CBC & Chem 7: 10/07/23 07:09 Labs: Abnormal Lab Results - Last 24 Hours (Table) 10/07/23 Range/Units 07:09 WBC 11.28 H (4.50-10.00) X 10*3/uL Immature Gran # 0.05 H (0.00-0.04) X 10*3/uL Neutrophils # 9.19 H (1.80-7.70) X 10*3/uL Eosinophils # 0 L (0.04-0.35) X 10*3/uL Assessment and Plan Assessment: Postoperative day #1 status post left total knee arthroplasty Plan: Pain control, will adjust [place]mer to every 4 hours. Will also add Lyrica 150 mg. Discussed with patient the need to try to limit the IV Dilaudid at this time GI and DVT prophylaxis, continue current medications. Will likely utilize aspirin 81 mg twice a day for 30 days at discharge Wound care instructions were discussed, this to include icing and elevating along with showering Encourage incentive spirometer Continue PT/OT Medical recommendations appreciated Discharge planning: Would like to keep patient in hospital 1 additional night for pain control, plan for discharge home on 10/08/2023 Time with Patient: Less than 30
[2023-10-07] MEDS: HYDROcodone/APAP 7.5-325MG 1 EACH TAB PO PRN (14:03)
[2023-10-07] MEDS: PREGABALIN 75 MG CAP PO SCH (20:35)
[2023-10-08 05:53] VITALS: PULSE 80
[2023-10-08 07:24] VITALS: BP 123/78; RESP 18; TEMP 98.2
--- NOTE | 2023-10-08 08:16 | P.PN ---
Subjective Progress Note Date: 10/08/23 Principal diagnosis: Status post left total knee arthroplasty Patient is evaluated today at bedside, she is resting in her hospital bed. Patient feels a lot more comfortable today, she was able to sleep well through the night. Very eager to work with physical therapy today. She denies any headaches, lightheadedness, chest pain or shortness of breath. Objective - Vital Signs Vital signs: Vital Signs Temp 98.2 F 10/08/23 07:23 Pulse 80 10/08/23 07:23 Resp 18 10/08/23 07:23 BP 123/78 10/08/23 07:23 Pulse Ox 93 L 10/08/23 07:23 FiO2 Intake & Output 10/07/23 10/08/23 10/08/23 18:59 06:59 18:59 Other: Voiding Method Toilet Toilet # Voids 1 1 - Exam Left lower extremity: Incision is clean, dry, and intact. The foam dressing is in good condition. There is minimal soft tissue swelling and ecchymosis surrounding the medial and lateral aspects of the incision. Calf is soft, no tenderness with palpation. Plantar flexion, dorsiflexion, EHL, FHL are intact. Sensory exam to light touch throughout the extremity is intact, dorsal pedis pulses 2+. - Labs CBC & Chem 7: 10/07/23 07:09 Labs: Abnormal Lab Results - Last 24 Hours (Table) 10/07/23 Range/Units 07:09 WBC 11.28 H (4.50-10.00) X 10*3/uL Immature Gran # 0.05 H (0.00-0.04) X 10*3/uL Neutrophils # 9.19 H (1.80-7.70) X 10*3/uL Eosinophils # 0 L (0.04-0.35) X 10*3/uL Assessment and Plan Assessment: Postoperative day #2 status post left total knee arthroplasty Plan: Pain control, plan for discharge with [place] and Lyrica GI and DVT prophylaxis, aspirin 81 mg twice a day for 30 days Wound care instructions were discussed, this to include icing and elevating along with showering Encourage incentive spirometer Home PT/nursing after discharge Medical recommendations appreciated Discharge planning: Discharge home today Time with Patient: Less than 30
--- NOTE | 2023-10-08 08:18 | P.DS ---
Providers Date of admission: 10/06/2023 Expected date of discharge: 10/08/23 Attending physician: Edmund Osman Consults: 10/06/23 10:35 Consult Physician Routine Consulting Provider: Hakeem Wolfe Reason/Comments: Medical management Do you want consulting provider notified?: Yes Primary care physician: Hakeem Wolfe Hospital Course: Date of admission: 10/06/2023 Date of discharge: 10/08/2023 Admission diagnosis: Status post left total knee arthroplasty Discharge diagnosis: Same Attending physician: Dr. Osman Surgical procedures: Left total knee arthroplasty Brief history: Patient is a 63-year-old female with a history of progressive primary left knee osteoarthritis. At this point patient has failed conservative treatment measures and has opted to proceed with a elective left total knee arthroplasty. Hospital course: Details of patient's surgery can be found in operative report. Patient tolerated the procedure well and was subsequently transported to orthopedic floor. Patient's orthopeidc and medical care was provided daily. Patient had daily laboratory tests performed for evaluation of overall blood counts. Patient had daily physical therapy to include strengthening range of motion as well as education with walker ambulation. Patient was treated with aspirin for their postoperative DVT prophylaxis during their inpatient stay. Patient was noted to have a relatively uneventful postoperative course. Patient reported satisfactory pain control with oral pain medications by postoperative day 1. Patient showed satisfactory progress with physical therapy. Patient moved steadily through the program and had no difficulty meeting the goals by postoperative day 2. Given patient's otherwise satisfactory course and having met physical therapy goals, plan is to discharge patient home on postoperative day 2. Discharge condition/disposition: Patient will be discharged home in stable condition. Discharge medications: Instructions are given on resumption of patient's normal daily medications per primary care recommendation, in addition patient will be prescribed Revere 7.5 mg / 325 mg, Lyrica 75 mg, aspirin 81 mg, senna S. Discharge instructions: 1. Wound care and infection precautions, keep incision dry and covered while showering, no lotions, creams, moisturizers. No soaking, tubs, pools, hottubs. Do not scrub over the incision. 2. Weight-bear as tolerated with walker / cane until follow-up. 3. Ice and elevate when necessary. Do not exceed 20 minutes per hour with ice pack. 4. Utilize compression sleeve until seen at first follow up appointment. 5. Visiting nursing care. 6. Home physical therapy including home CPM. 7. Pain meds and anticoagulants per prescription. 8. Pain medication has potential to cause constipation. Increase oral fluid and fiber intake. Contact primary care provider if you have not had a bowel movement within 48 hours after discharge 9. No anti-inflammatory medication until discussed at first post operative visit, this including Motrin, Aleve, Mobic, Diclofenac. 10. Follow up in office at 2 weeks postop with Kamran Parr PA-C/Obey Denson 11. Follow up with your primary care doctor 7-10 days after discharge. 12. Contact [facility] with any questions, . Procedures: Left total knee arthroplasty Patient Condition at Discharge: Good Plan - Discharge Summary Discharge Rx Participant: No New Discharge Prescriptions: New Aspirin [Adult Low Dose Aspirin EC] 81 mg PO BID #60 tab Sennosides/Docusate Sodium [Senna-S 8.6-50 mg Tablet] 2 each PO DAILY PRN #30 tablet PRN Reason: Constipation Pregabalin [Lyrica] 75 mg PO BID 14 Days #21 cap HYDROcodone/APAP 7.5-325MG [Revere 7.5] 1 each PO Q4HR PRN #42 tab PRN Reason: Pain No Action Ubidecarenone [Co Q-10] 200 mg PO DAILY hydroCHLOROthiazide 12.5 mg PO Q48H Wheat Dextrin [Benefiber] 1 packet PO DAILY Docusate [Colace] 100 mg PO BID cap Multivit-Min/Iron/Folic/Lutein [Centrum Silver Women Tablet] 1 each PO DAILY traMADol HCL/ACETAMINOPHEN [Ultracet 37.5-325] 2 tab PO Q6H PRN PRN Reason: Pain Simvastatin [Zocor] 20 mg PO HS Celecoxib 200 mg PO DAILY Discharge Medication List Ubidecarenone [Co Q-10] 200 mg PO DAILY 04/02/16 [History] Simvastatin [Zocor] 20 mg PO HS 05/22/21 [History] hydroCHLOROthiazide 12.5 mg PO Q48H 05/22/21 [History] Wheat Dextrin [Benefiber] 1 packet PO DAILY 01/04/22 [History] Docusate [Colace] 100 mg PO BID cap 01/06/22 [Rx] Multivit-Min/Iron/Folic/Lutein [Centrum Silver Women Tablet] 1 each PO DAILY 06/15/22 [History] traMADol HCL/ACETAMINOPHEN [Ultracet 37.5-325] 2 tab PO Q6H PRN 06/15/22 [History] Celecoxib 200 mg PO DAILY 10/05/23 [History] Aspirin [Adult Low Dose Aspirin EC] 81 mg PO BID #60 tab 10/08/23 [Rx] HYDROcodone/APAP 7.5-325MG [Revere 7.5] 1 each PO Q4HR PRN #42 tab 10/08/23 [Rx] Pregabalin [Lyrica] 75 mg PO BID 14 Days #21 cap 10/08/23 [Rx] Sennosides/Docusate Sodium [Senna-S 8.6-50 mg Tablet] 2 each PO DAILY PRN #30 tablet 10/08/23 [Rx] Follow up Appointment(s)/Referral(s): [facility] [place], [NON-STAFF] - 1 Week Kamron Parr PAC [PH[employer]ICIAN [employer]] - 2 Weeks Activity/Diet/Wound Care/Special Instructions: Orthopedic Discharge Instructions: 1. Wound care and infection precautions, keep incision dry and covered while showering, no lotions, creams, moisturizers. No soaking, pools, hot tubs. Do not scrub over incision. 2. Weight-bear as tolerated with walker / cane until follow-up. 3. Ice and elevate when necessary. Do not exceed 20 minutes per hour with ice pack. 4. Utilize compression sleeve until seen at first follow up appointment. 5. Pain meds and anticoagulants per prescription. 6. Pain medication has potential to cause constipation. Increase oral fluid and fiber intake. Contact primary care provider if you have not had a bowel movement within 48 hours after discharge. 7. No anti-inflammatory medication until discussed at first post operative visit, this including Motrin, Aleve, Mobic, Diclofenac. 8. Follow up in office at 2 weeks postop with Kamran Parr PA-C/Obey Alvarez PA-C 9. Follow up with your primary care doctor 7-10 days after discharge. 10. Contact [facility] with any questions, . Wound care instructions: 1. Okay to remove surgical dressing as of 10/13/2023 2. Okay to shower directly over the incision as of 10/13/2023 Discharge Disposition: HOME WITH HOME HEALTH SERVICES
== END 2023-10-08 13:55 | disposition home health service (06) ==
LOC: OR 06:35 → 4SSUR 06:36
PROVIDERS: ADMIT Orthopaedic Surgery; ATTEND Orthopaedic Surgery
DX: M17.12 Unilateral primary osteoarthritis, left knee (principal); I10 Essential (primary) hypertension; E78.5 Hyperlipidemia, unspecified; G62.9 Polyneuropathy, unspecified; E66.01 Morbid (severe) obesity due to excess calories; Z68.42 Body mass index [BMI] 45.0-49.9, adult; Z79.1 Long term (current) use of non-steroidal anti-inflammatories (NSAID); Z79.899 Other long term (current) drug therapy; Z88.8 Allergy status to other drugs, medicaments and biological substances; Z87.891 Personal history of nicotine dependence; Z90.49 Acquired absence of other specified parts of digestive tract; Z98.890 Other specified postprocedural states
CPT/HCPCS: 64448; 64999; 85025; 85610; 96372

== ENCOUNTER → 2024-04-19 | Outpatient (CLI) | payer BC ==
[2024-04-19 18:33] LABS: HCT 45.2 % (37.2-46.3); HGB 14.5 g/dL (12.0-15.0); MCH 28.9 pg (27.0-32.0); MCHC 32.1 g/dL (32.0-37.0); MCV 90.2 FL (80.0-97.0); Mean Platelet Volume 10.5 FL (9.5-12.2); NRBC Per 100 WBC 0 X 10*3/uL (0.00-0.01); Platelet Count 272 X 10*3/uL (140-440); RBC 5.01 X 10*6/uL (4.10-5.20); RDW 14.8 % (11.5-14.5); WBC 7.58 X 10*3/uL (4.50-10.00)
[2024-04-19 18:41] LABS: ALT 14 U/L (8-44); AST 21 U/L (13-35); Albumin 4.1 g/dL (3.8-4.9); Albumin/Globulin Ratio 1.46 Ratio (1.60-3.17); Alkaline Phosphatase 82 U/L (41-126); BUN/Creat Ratio 27.14 Ratio (12.00-20.00); Calcium 9.5 mg/dL (8.7-10.3); Carbon Dioxide 27.6 mmol/L (21.6-31.8); Chloride 105 mmol/L (96-109); Globulin 2.8 g/dL (1.6-3.3); Glucose 110 mg/dL (70-110); Sodium 144 mmol/L (135-145); Total Bilirubin 0.4 mg/dL (0.3-1.2); Total Protein 6.9 g/dL (6.2-8.2)
== END | disposition home or self-care (01) ==
LOC: LABWHC1 14:25
PROVIDERS: ATTEND Family Medicine
DX: I10 Essential (primary) hypertension (principal); E78.2 Mixed hyperlipidemia; E66.01 Morbid (severe) obesity due to excess calories; M19.012 Primary osteoarthritis, left shoulder; T81.89XA Other complications of procedures, not elsewhere classified, initial encounter; Z68.42 Body mass index [BMI] 45.0-49.9, adult
CPT/HCPCS: 36415; 80053; 85027